=== PATIENT | male | born 1970 | race Caucasian/White ===

== ENCOUNTER 2016-11-01 18:38 | Inpatient (IN) | payer MEDICARE, OTHER ==
[~2016-11-01] VITALS: Ht 188 cm; Wt 86.1 kg
[~2016-11-01 18:38] MED LIST: CYCL-36 PO; DUONI NEB; OMEP20TA39 PO; OXYC15TA PO; PRED10PA PO; TRAZ300T2 PO; XANA2TAB2 PO
[2016-11-01 19:01] VITALS: BP 143/86; PULSE 84; RESP 16; TEMP 98.8; O2SAT 98
--- NOTE | 2016-11-01 21:51 | PD ---
HPI Chief Complaint: Chest Pain Time Seen by Provider: 21:33 Travel History International Travel<30 days: No Contact w/Intl Traveler<30days: No Traveled to known affect area: No History of Present Illness HPI Patient comes in complaining of burning sensation in his chest has been getting worse for the past 4 days. Patient has a chronic history of this and patient's mother reports he was on hospice until about a week ago when he was taken off taken along with all his medicines "cold turkey". Patient states the past 4 days he's been having increased burning sensation in his chest as well as in his fingers and toes. Patient denies anything making it worse. States breathing treatments helped a little bit. Denies any fevers, chest pain, nausea , vomiting, fevers, or abdominal pain. Patient also reports that he his O2 concentrator is not working currently secondary to being without electricity and has been using up his O2 tanks. PFSH Past Medical History Hx Anticoagulant Therapy: No Arthritis: No Asthma: No Autoimmune Disease: No Blood Disorders: No Anxiety: Yes Depression: Yes Heart Rhythm Problems: No Cancer: No Cardiac Catheterization: Yes Cardiomyopathy: Yes Cardiovascular Problems: Yes (LOOP RECORDER PLACED 05/06/15) High Cholesterol: Yes Chemotherapy: No Chest Pain: Yes (CHEST WALL PAIN, DENIES ANGINA) Congestive Heart Failure: No COPD: Yes (CHRONIC) Cerebrovascular Accident: No Diabetes: No Diminished Hearing: No Endocrine: No Gastrointestinal Disorders: Yes GERD: Yes Genitourinary: Yes Headaches: Yes Hiatal Hernia: No Hypertension: Yes Immune Disorder: No Implanted Vascular Access Dvce: Yes Musculoskeletal: Yes (CHRONIC CHEST/LUNG & LEG PAIN) Neurologic: Yes Psychiatric: Yes Reproductive: No Respiratory: Yes (copd end stage) Immunizations Current: Yes Migraines: No Myocardial Infarction: No Pneumonia: Yes Radiation Therapy: No Seizures: No Sleep Apnea: No Thyroid Disease: No Ulcer: No PNEUMOCCOCAL Vaccine (Year): 2009 Past Surgical History Abdominal Surgery: No AICD: No Arteriovenous Shunt: No Body Medical Devices: LOOP RECORDER Cardiac Surgery: Yes (LOOP RECORDER- placed today 05/05/14) Ear Surgery: No Endocrine Surgery: No Eye Surgery: No Genitourinary Surgery: No Insulin Pump: No Joint Replacement: No Neurologic Surgery: No Oral Surgery: Yes (TEETH REMOVED) Pacemaker: No Thoracic Surgery: Yes (RIGHT LUNG LOBECTOMY) Tonsillectomy: Yes Other Surgery: Yes (SINUS SURGERY) Family History Family Hypercholesterolemia: Yes Social History Alcohol Use: Yes (Weekends) Tobacco Use: Yes (QUIT 05/05/15) Substance Use: Yes (Marijuana occ.) Allergies-Medications (Allergen,Severity, Reaction): Coded Allergies: codeine (Unverified Allergy, Severe, Anaphylaxis, 11/01/16) diatrizoate meglumine (Unverified Allergy, Severe, Tongue Swelling, [place], 11/01/16) fentanyl (Unverified Allergy, Severe, Hives; nausea/vomiting, 11/02/16) Per patient report gadobenic acid (Unverified Allergy, Severe, Tongue Swelling, [place], 01/07) gadodiamide (Unverified Allergy, Severe, Tongue Swelling, [place], ) gadoteridol (Unverified Allergy, Severe, Tongue Swelling, [place], ) iodixanol (Unverified Allergy, Severe, Tongue Swelling, [place], 11/01/16) iohexol (Unverified Allergy, Severe, Tongue Swelling, [place], 11/01/16) morphine (Unverified Allergy, Severe, itching and redness at IV site., 01/07) Pt states not allergic azithromycin (Unverified Allergy, Intermediate, Itching, 11/01/16) REDNESS AND ITCHING IN SAME ARM OF IV INFUSION. PT REPORTS TAKING ORAL ZITHROMAX WITHOUT ANY PROBLEMS. methadone (Unverified Allergy, Intermediate, Hives, 11/02/16) Per patient report Reported Meds & Prescriptions Reported Meds & Active Scripts Active Review of Systems Except as stated in HPI: all other systems reviewed are Neg Physical Exam Narrative GENERAL: Well-developed, well nourished, in no acute distress, and non-ill appearing. SKIN: Focused skin assessment warm and dry. HEAD: Atraumatic. Normocephalic. EYES: Pupils equal and round. EOMI. No scleral icterus. No injection or drainage. ENT: No nasal bleeding or discharge. Mucous membranes pink and moist. NECK: Trachea midline. No JVD. Supple. No nuclear rigidity. CARDIOVASCULAR: Regular rate and rhythm. No murmur appreciated. RESPIRATORY: No accessory muscle use. No respiratory distress. Decreased breath sounds throughout. MUSCULOSKELETAL: No obvious deformities. No clubbing. No cyanosis. No edema. Full range of motion. NEUROLOGICAL: Awake and alert. No obvious cranial nerve deficits. Motor grossly within normal limits. Normal speech. PSYCHIATRIC: Appropriate mood and affect; insight and judgment normal. Data Data Last Documented VS Vital Signs Date Time Temp Pulse Resp B/P (MAP) Pulse Ox O2 Delivery O2 Flow Rate FiO2 11/01/16 23:45 76 18 125/74 (91) 98 Room Air 139/88 (105) 11/01/16 23:43 10.00 11/01/16 19:01 98.8 Orders Orders Electrocardiogram (11/01/16 21:59) Basic Metabolic Panel (Bmp) (11/01/16 21:59) Ckmb (Isoenzyme) Profile (11/01/16 21:59) Complete Blood Count With Diff (11/01/16 21:59) Magnesium (Mg) (11/01/16 21:59) Prothrombin Time / Inr (Pt) (11/01/16 21:59) Act Partial Throm Time (Ptt) (11/01/16 21:59) Troponin I (11/01/16 21:59) Chest, Single Ap (11/01/16 21:59) Ecg Monitoring (11/01/16 21:59) Bilateral Bp Monitoring (11/01/16 21:59) Iv Access Insert/Monitor (11/01/16 21:59) Oximetry (11/01/16 21:59) Oxygen Administration (11/01/16 21:59) Albuterol-Ipratropium Neb (Duoneb Neb) (11/01/16 22:15) Aspirin Chew (Aspirin Chew) (11/01/16 23:15) Hydromorphone Pf Inj (Dilaudid Pf Inj) (11/01/16 23:15) Methylprednisolone So Succ Inj (Solumedr (11/01/16 23:15) Place In Observation (11/01/16 ) Vital Signs (Adult) Q4H (11/01/16 23:42) Activity Oob With Assistance (11/01/16 23:42) Delivery Consultant / Telemetry .CONTINUOUS (11/01/16 23:42) Diet Heart Healthy (11/02/16 Breakfast) Sodium Chloride 0.9% Flush (Ns Flush) (11/01/16 23:45) Sodium Chloride 0.9% Flush (Ns Flush) (11/02/16 09:00) Basic Metabolic Panel (Bmp) (11/02/16 06:00) Complete Blood Count With Diff (11/02/16 06:00) Creatine Kinase (Cpk) (11/02/16 04:30) Creatine Kinase (Cpk) (11/02/16 10:30) Troponin I (11/02/16 04:30) Troponin I (11/02/16 10:30) Electrocardiogram (11/02/16 04:30) Electrocardiogram (11/02/16 10:30) Resp Oxygen Balaji C Titrat 1-4 L (11/01/16 ) Pt Request For Service (11/01/16 23:42) Case Management Consult (11/01/16 23:42) Naloxone Inj (Narcan Inj) (11/01/16 23:45) Albuterol-Ipratropium Neb (Duoneb Neb) (11/02/16 04:00) Albuterol-Ipratropium Neb (Duoneb Neb) (11/02/16 00:00) Ondansetron Inj (Zofran Inj) (11/02/16 00:00) Admit Order (Ed Use Only) (11/01/16 23:47) Labs Laboratory Tests Test 11/01/16 22:30 White Blood Count 11.0 TH/MM3 Red Blood Count 4.59 MIL/MM3 Hemoglobin 14.0 GM/DL Hematocrit 40.7 % Mean Corpuscular Volume 88.6 FL Mean Corpuscular Hemoglobin 30.6 PG Mean Corpuscular Hemoglobin Concent 34.5 % Red Cell Distribution Width 13.0 % Platelet Count 356 TH/MM3 Mean Platelet Volume 7.2 FL Neutrophils (%) (Auto) 62.8 % Lymphocytes (%) (Auto) 26.9 % Monocytes (%) (Auto) 6.1 % Eosinophils (%) (Auto) 3.4 % Basophils (%) (Auto) 0.8 % Neutrophils # (Auto) 6.8 TH/MM3 Lymphocytes # (Auto) 3.0 TH/MM3 Monocytes # (Auto) 0.7 TH/MM3 Eosinophils # (Auto) 0.4 TH/MM3 Basophils # (Auto) 0.1 TH/MM3 CBC Comment DIFF FINAL Differential Comment Prothrombin Time 10.4 SEC Prothromb Time International Ratio 0.9 RATIO Activated Partial Thromboplast Time 31.0 SEC Blood Urea Nitrogen 21 MG/DL Creatinine 0.87 MG/DL Random Glucose 124 MG/DL Calcium Level 8.2 MG/DL Magnesium Level 2.1 MG/DL Sodium Level 140 MEQ/L Potassium Level 3.7 MEQ/L Chloride Level 106 MEQ/L Carbon Dioxide Level 28.4 MEQ/L Anion Gap 6 MEQ/L Estimat Glomerular Filtration Rate 94 ML/MIN Total Creatine Kinase 44 U/L Troponin I LESS THAN 0.02 NG/ML MDM Medical Decision Making Medical Screen Exam Complete: Yes Emergency Medical Condition: Yes Interpretation(s) Chest x-ray with the radiologist shows: No evidence of acute cardiopulmonary disease. Mild chronic interstitial changes. Differential Diagnosis COPD exacerbation, pneumonia, acute coronary syndrome, pneumothorax, chronic pain, other Narrative Course Patient was seen and examined. Initial of her neurologic status. Patient was signed out to Dr. Montoya at the end of my shift. Please see his documentation for final diagnosis and disposition. Scripts Alprazolam (Xanax) 1 Mg Tab 1 MG PO Q6H Y for ANXIETY, #15 TAB 0 Refills Prov: Sudhakar Vazquez MD 11/03/16 Oxycodone (Oxycodone) 10 Mg Tab 10 MG PO Q6H Y for PAIN, #20 TAB 0 Refills Prov: Sudhakar Vazquez MD 11/03/16 Iain Meredith Nov 01, 2016 21:51
[2016-11-01] MEDS ORDERED: SODIUM CHLORIDE 0.9% FLUSH 10 ML FLUSH IVF PRN (22:00)
[2016-11-01 22:09] VITALS: BP 136/92; PULSE 69; RESP 20; O2SAT 100
[2016-11-01] MEDS ORDERED: RESP: ALBUTEROL 2.5 MG/IPRATROPIUM 0.5 MG NEB (SCH) INH ONE (22:15)
--- NOTE | 2016-11-01 22:15 | RADRPT ---
EXAM DATE/TIME: 11/01/2016 21:48 [facility] COMPARISON: US CAROTID ARTERIES, November 29, 2011, 14:27. CHEST SINGLE AP, May 21, 2015, 20:01. INDICATIONS : Shortness of breath, chest pain. MEDICAL HISTORY : Alpha one antitrypsin SURGICAL HISTORY : Loop recorder, Right lobectomy 9 yrs ENCOUNTER: Initial ACUITY: 4 - 6 days PAIN SCORE: 6/10 LOCATION: Bilateral chest FINDINGS: Mild interstitial opacities are again seen in the bases. No infiltrate, effusion or pneumothorax. Hea rt size stable, within normal limits. Cardiac Loop recorder again noted. CONCLUSION: No evidence of acute cardiopulmonary disease. Mild chronic interstitial changes. Vahid Elizabeth MD on November 01, 2016 at 22:12 Board Certified Radiologist. This report was verified electronically.
[2016-11-01 22:37] LABS: AUTOMATED NEUTROPHIL # 6.8 TH/MM3 (1.8-7.7); BASOPHIL % 0.8 % (0.0-2.0); EOSINOPHIL % 3.4 % (0.0-4.0); HEMATOCRIT 40.7 % (39.0-51.0); HEMO FLAGS DIFF FINAL; LYMPH % 26.9 % (9.0-44.0); MEAN CELL VOLUME 88.6 FL (80.0-100.0); MEAN CORPUSCULAR HEMOGLOBIN 30.6 PG (27.0-34.0); MEAN CORPUSCULAR HGB CONC 34.5 % (32.0-36.0); MONO % 6.1 % (0.0-8.0); NEUT % 62.8 % (16.0-70.0); PLATELET COUNT 356 TH/MM3 (150-450); RED BLOOD COUNT 4.59 MIL/MM3 (4.50-5.90)
[2016-11-01 22:38] LABS: BASOPHIL # 0.1 TH/MM3 (0-0.2); EOSINOPHIL # 0.4 TH/MM3 (0-0.4)
[2016-11-01 22:45] LABS: CHLORIDE 106 MEQ/L (98-107); POTASSIUM 3.7 MEQ/L (3.5-5.1); SODIUM (NA) 140 MEQ/L (136-145)
[2016-11-01 22:48] LABS: ANION GAP 6 MEQ/L (5-15); BICARBONATE 28.4 MEQ/L (21.0-32.0); BLOOD UREA NITROGEN 21 MG/DL (7-18); MAGNESIUM 2.1 MG/DL (1.5-2.5)
[2016-11-01 22:49] LABS: INTERNATIONAL NORMALIZED RATIO 0.9 RATIO; PROTHROMBIN TIME - PATIENT 10.4 SEC (9.8-11.6)
[2016-11-01 22:52] LABS: GLOMERULAR FILTRATION RATE 94 ML/MIN (>89)
[2016-11-01 22:56] LABS: CREATINE KINASE 44 U/L (39-308)
[2016-11-01] MEDS ORDERED: HYDROmorphone HCL PF 1 MG/ML VIAL IV PUSH ONE (23:15)
[2016-11-01] MEDS ORDERED: ASPIRIN 81 MG CHEW TAB PO ONE (23:15)
[2016-11-01] MEDS ORDERED: methylPREDNISolone SOD SUCC 125 MG/2 ML VIAL IV PUSH ONE (23:15)
[2016-11-01 23:43] VITALS: O2SAT 100
[2016-11-01 23:45] VITALS: BP_SYST 125; BP_SYST 139; BP_DIAS 74; BP_DIAS 88; PULSE 76; RESP 18; O2SAT 98
[2016-11-01] MEDS ORDERED: NALOXONE HCL 0.4 MG/ML AMP IV PRN (23:45)
[2016-11-01] MEDS ORDERED: SODIUM CHLORIDE 0.9% FLUSH 10 ML FLUSH IV FLUSH PRN (23:45)
--- NOTE | 2016-11-01 23:53 | PD ---
Data Data Last Documented VS Vital Signs Date Time Temp Pulse Resp B/P (MAP) Pulse Ox O2 Delivery O2 Flow Rate FiO2 11/01/16 23:45 76 18 125/74 (91) 98 Room Air 139/88 (105) 11/01/16 23:43 10.00 11/01/16 19:01 98.8 Orders Orders Electrocardiogram (11/01/16 21:59) Basic Metabolic Panel (Bmp) (11/01/16 21:59) Ckmb (Isoenzyme) Profile (11/01/16 21:59) Complete Blood Count With Diff (11/01/16 21:59) Magnesium (Mg) (11/01/16 21:59) Prothrombin Time / Inr (Pt) (11/01/16 21:59) Act Partial Throm Time (Ptt) (11/01/16 21:59) Troponin I (11/01/16 21:59) Chest, Single Ap (11/01/16 21:59) Ecg Monitoring (11/01/16 21:59) Bilateral Bp Monitoring (11/01/16 21:59) Iv Access Insert/Monitor (11/01/16 21:59) Oximetry (11/01/16 21:59) Oxygen Administration (11/01/16 21:59) Albuterol-Ipratropium Neb (Duoneb Neb) (11/01/16 22:15) Aspirin Chew (Aspirin Chew) (11/01/16 23:15) Hydromorphone Pf Inj (Dilaudid Pf Inj) (11/01/16 23:15) Methylprednisolone So Succ Inj (Solumedr (11/01/16 23:15) Place In Observation (11/01/16 ) Vital Signs (Adult) Q4H (11/01/16 23:42) Activity Oob With Assistance (11/01/16 23:42) Archeologist Classical / Telemetry .CONTINUOUS (11/01/16 23:42) Diet Heart Healthy (11/02/16 Breakfast) Sodium Chloride 0.9% Flush (Ns Flush) (11/01/16 23:45) Sodium Chloride 0.9% Flush (Ns Flush) (11/02/16 09:00) Basic Metabolic Panel (Bmp) (11/02/16 06:00) Complete Blood Count With Diff (11/02/16 06:00) Creatine Kinase (Cpk) (11/02/16 04:30) Creatine Kinase (Cpk) (11/02/16 10:30) Troponin I (11/02/16 04:30) Troponin I (11/02/16 10:30) Electrocardiogram (11/02/16 04:30) Electrocardiogram (11/02/16 10:30) Resp Oxygen Balaji C Titrat 1-4 L (11/01/16 ) Pt Request For Service (11/01/16 23:42) Case Management Consult (11/01/16 23:42) Naloxone Inj (Narcan Inj) (11/01/16 23:45) Albuterol-Ipratropium Neb (Duoneb Neb) (11/02/16 04:00) Albuterol-Ipratropium Neb (Duoneb Neb) (11/02/16 00:00) Ondansetron Inj (Zofran Inj) (11/02/16 00:00) Admit Order (Ed Use Only) (11/01/16 23:47) Labs Laboratory Tests Test 11/01/16 22:30 White Blood Count 11.0 TH/MM3 Red Blood Count 4.59 MIL/MM3 Hemoglobin 14.0 GM/DL Hematocrit 40.7 % Mean Corpuscular Volume 88.6 FL Mean Corpuscular Hemoglobin 30.6 PG Mean Corpuscular Hemoglobin Concent 34.5 % Red Cell Distribution Width 13.0 % Platelet Count 356 TH/MM3 Mean Platelet Volume 7.2 FL Neutrophils (%) (Auto) 62.8 % Lymphocytes (%) (Auto) 26.9 % Monocytes (%) (Auto) 6.1 % Eosinophils (%) (Auto) 3.4 % Basophils (%) (Auto) 0.8 % Neutrophils # (Auto) 6.8 TH/MM3 Lymphocytes # (Auto) 3.0 TH/MM3 Monocytes # (Auto) 0.7 TH/MM3 Eosinophils # (Auto) 0.4 TH/MM3 Basophils # (Auto) 0.1 TH/MM3 CBC Comment DIFF FINAL Differential Comment Prothrombin Time 10.4 SEC Prothromb Time International Ratio 0.9 RATIO Activated Partial Thromboplast Time 31.0 SEC Blood Urea Nitrogen 21 MG/DL Creatinine 0.87 MG/DL Random Glucose 124 MG/DL Calcium Level 8.2 MG/DL Magnesium Level 2.1 MG/DL Sodium Level 140 MEQ/L Potassium Level 3.7 MEQ/L Chloride Level 106 MEQ/L Carbon Dioxide Level 28.4 MEQ/L Anion Gap 6 MEQ/L Estimat Glomerular Filtration Rate 94 ML/MIN Total Creatine Kinase 44 U/L Troponin I LESS THAN 0.02 NG/ML MDM Supervised Visit with LB: Yes Narrative Course I, Dr. Montoya, have reviewed the advance practice practitioner's documentation and am in agreement, met with the patient face to face, made the diagnosis, and the medical decision making was done by me. See his note for further details. Briefly this is a 46-year-old male with history of alpha-1 antitrypsin deficiency, right lung lobectomy, oxygen dependent on 10 L nasal cannula at home , here for evaluation of chest pain, shortness of breath, and burning sensation in bilateral hands and feet. Symptoms reportedly had been going on for last 2 days. While in triage, the patient was on a portable oxygen tank from home that ran out of oxygen. Patient describes a substernal chest pain that he describes as ripping, worse with inspiration. On physical exam he is comfortable. There are bilateral inspiratory and expiratory wheezes. No upper or lower extremity edema. Hands an feet appear unremarkable. Initial vital signs show heart rate 84, blood pressure 143/86, pulse ox 98% on 10 L facemask. EKG: Sinus, rate 65, normal axis, normal intervals, no acute ischemic abnormality. CBC is unremarkable. BMP is unremarkable. Cardiac enzymes are negative. Chest x-ray: No evidence of acute cardiopulmonary disease. Mild chronic interstitial changes. Patient was given a DuoNeb treatment and IV Solu-Medrol. States that he did his own albuterol treatments at home prior to arrival without improvement. On reassessment his wheezing has significantly improved. There are no retractions or signs of respiratory distress on exam. He is still complaining of chest pain that is substernal. He was given a full dose of aspirin. He will be given pain medication. The patient reports that he was previously on hospice care, however was taken off of hospice one week ago. He reports significant family history of heart disease, however denies any known personal history of heart disease. He will be admitted for further treatment and evaluation of COPD /pulmonary fibrosis with shortness of breath as well as chest pain. Case discussed with hospitalist Dr. Hicks who will admit the patient to her service. Diagnosis Primary Impression: Chest pain Qualified Codes: R07.9 - Chest pain, unspecified Additional Impression: COPD exacerbation Neno Montoya MD Nov 01, 2016 23:53
[2016-11-02] VITALS (14 sets, daily range): BP systolic 111–139; BP diastolic 68–89; PULSE 73–102; RESP 16–20; TEMP 97.4–98.7; O2SAT 94–100
[2016-11-02] MEDS ORDERED: RESP: ALBUTEROL 2.5 MG/IPRATROPIUM 0.5 MG NEB (PRN) NEB
[2016-11-02] MEDS ORDERED: ONDANSETRON HCL 4 MG/2 ML VIAL IV PUSH ONE
[2016-11-02] MEDS: RESP: ALBUTEROL 2.5 MG/IPRATROPIUM 0.5 MG NEB (SCH) NEB ×4 (04:07→20:06)
[2016-11-02 05:37] LABS: CREATINE KINASE 38 U/L (39-308)
[2016-11-02 05:57] LABS: AUTOMATED NEUTROPHIL # 14.1 TH/MM3 (1.8-7.7); BASOPHIL # 0.4 TH/MM3 (0-0.2); BASOPHIL % 2.3 % (0.0-2.0); EOSINOPHIL % 0.2 % (0.0-4.0); HEMATOCRIT 40.8 % (39.0-51.0); LYMPHOCYTE # 0.8 TH/MM3 (1.0-4.8); MEAN CELL VOLUME 87.2 FL (80.0-100.0); MEAN CORPUSCULAR HEMOGLOBIN 29.5 PG (27.0-34.0); MEAN CORPUSCULAR HGB CONC 33.8 % (32.0-36.0); MONO % 0.3 % (0.0-8.0); NEUT % 92.2 % (16.0-70.0); PLATELET COUNT 332 TH/MM3 (150-450); RED BLOOD COUNT 4.68 MIL/MM3 (4.50-5.90); RED CELL DISTRIBUTION WIDTH 13.1 % (11.6-17.2); WHITE BLOOD COUNT 15.3 TH/MM3 (4.0-11.0)
[2016-11-02 05:58] LABS: HEMO FLAGS DIFF FINAL
[2016-11-02 06:11] LABS: POTASSIUM 3.7 MEQ/L (3.5-5.1)
[2016-11-02 06:14] LABS: BICARBONATE 26.6 MEQ/L (21.0-32.0)
[2016-11-02] MEDS: SODIUM CHLORIDE 0.9% FLUSH 10 ML FLUSH IV FLUSH SCH ×2 (10:07→20:06)
[2016-11-02] MEDS: methylPREDNISolone SOD SUCC 40 MG/1 ML VIAL IV PUSH SCH ×2 (11:28→18:45)
[2016-11-02 11:30] LABS: CREATINE KINASE 42 U/L (39-308)
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
--- NOTE | 2016-11-02 14:03 | EKG ---
Date Performed: 11/02/2016 Time Performed: 04:42:40 PTAGE: 46 years EKG: Sinus rhythm NORMAL ECG Compared to prior tracing no significant change PREVIOUS TRACING : 11/01/2016 22.35 DOCTOR: Sophie Hand Interpretating Date/Time 11/02/2016 13:57:35
--- NOTE | 2016-11-02 14:03 | EKG ---
Date Performed: 11/01/2016 Time Performed: 22:35:48 PTAGE: 46 years EKG: Sinus rhythm NORMAL ECG Compared to prior tracing no significant change PREVIOUS TRACING : 05/21/2015 19.44 DOCTOR: Sophie Hand Interpretating Date/Time 11/02/2016 13:57:27
[2016-11-02] MEDS: ENOXAPARIN SODIUM 40 MG/0.4 ML SYRINGE SQ SCH (14:27)
--- NOTE | 2016-11-02 16:59 | PD.CONS ---
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 decision-making noted today, and, unless otherwise indicated, the interactions with patient, family, and staff as well as the review of records all occurred today. I also attest that the listed assessment and stated plan reflect my best clinical judgment today based on the combination of historical information, prior notes, and today's exam/ interactions. When time spent is documented, it refers only to time spent today by the signer, or if indicated, combined time spent today by collaborating physician/nurse practitioner. . Kamari Gillette MD Nov 02, 2016 16:59
[2016-11-02] MEDS: ONDANSETRON ODT 4 MG TAB PO PRN (20:45)
[2016-11-03] VITALS (9 sets, daily range): BP systolic 111–130; BP diastolic 66–82; PULSE 78–96; RESP 16–20; TEMP 97.5–98.1; O2SAT 95–100
[2016-11-03] MEDS: methylPREDNISolone SOD SUCC 40 MG/1 ML VIAL IV PUSH SCH ×4 (01:08→18:00)
[2016-11-03] MEDS: LORazepam 2 MG TAB PO PRN ×2 (01:20→14:04)
[2016-11-03] MEDS: ONDANSETRON ODT 4 MG TAB PO PRN ×4 (01:20→14:04)
[2016-11-03] MEDS: RESP: ALBUTEROL 2.5 MG/IPRATROPIUM 0.5 MG NEB (SCH) NEB ×3 (03:33→16:00)
[2016-11-03] MEDS: SODIUM CHLORIDE 0.9% FLUSH 10 ML FLUSH IV FLUSH SCH (09:31)
[2016-11-03] MEDS: ENOXAPARIN SODIUM 40 MG/0.4 ML SYRINGE SQ SCH (14:08)
[2016-11-03 14:35] LABS: BLOOD GAS BASE EXCESS -0.4 mmol/L (-2-2); BLOOD GAS HCO3 23 mmol/L (22-26); BLOOD GAS METHEMOGLOBIN 0.6 % (0-2); BLOOD GAS O2 HGB SATURATION 94 % (90-100); BLOOD GAS OXYGEN CONTENT 18.4 Vol % (12.0-20.0); BLOOD GAS PCO2 32 mmHg (38-42); BLOOD GAS PO2 72 mmHG (61-120); BLOOD GAS TOTAL HGB 13.8 G/DL (12.0-16.0); CRITICAL VALUE NO; DRAW SITE LT RADIAL; FIO2 21 %; NUMBER OF ARTERIAL PUNCTURES 1; OXYGEN DEVICE ROOM AIR; STAT YES; TEMP CORR TO 98.6
--- NOTE | 2016-11-03 17:05 | MB ---
cc: JONO DE LA CRUZ M.D. DATE OF CONSULTATION 11/03/2016 REASON FOR CONSULTATION COPD alpha-one antitrypsin insufficiency. HISTORY OF PRESENT ILLNESS The patient is a 46-year-old male with a history of COPD and alpha-one antitrypsin deficiency and chronic respiratory failure on oxygen therapy at home. The patient comes in complaining of chest pain and pains all over. He has been with hospice at home receiving pain medication. However, because of lack of insurance coverage, he no longer gets the pain medicine. The patient has no shortness of breath at present and appears in no distress. No fever, chills, cough, or expectoration. PAST MEDICAL HISTORY His past medical history is that of: 1. COPD 2. Chronic respiratory failure 3. Alpha one Antitrypsin deficiency 4. Hypertension 5. Congestive heart failure 6. Narcotic dependence 7. Had a previous right lung resection apparently for benign Disease 8. Previous tonsillectomy and adenoidectomy as a child. 9. Sinus surgery 10. Loop recorder implantation ALLERGIES CODEINE, DIETRIZOATE, MEGLUMINE, GADOBENIC ACID, IODIXANOL, IOHEXOL AND MORPHINE AND AZITHROMYCIN. Kindly review the records, all these are listed. FAMILY HISTORY Positive for diabetes, heart disease, otherwise unremarkable. SOCIAL HISTORY The patient used to smoke, stopped 16 years ago. Narcotic dependence as above. Does not drink any alcohol. SYSTEMS REVIEW A 12-point review of systems as per HPI and past history otherwise negative. PHYSICAL EXAM On exam, the patient is alert, pulse 88, respirations 18, blood pressure 120/78, oxygen saturation 100% on two liters oxygen per records. HEENT: Exam unremarkable. Eyes without icterus. NECK: Without adenopathy or thyroid enlargement. Central trachea. CHEST: No dullness to percussion, clear to auscultation. CARDIAC: PMI distant. S1-S2 audible. No murmur or rub. ABDOMEN: Lax, audible bowel sounds. EXTREMITIES: No clubbing, cyanosis or edema. SKIN: Normal. No lymphadenopathy. LABORATORY DATA White count 15,000, hemoglobin 13, hematocrit 40, platelets 232,000. Sodium 139, potassium 3.7, BUN 19, creatinine 1.1. IMPRESSION 1. COPD and alpha one antitrypsin deficiency by history as above. 2. Chronic respiratory failure by history as above. 3. Generalized aches and pains. PLAN We will check the patient's pulmonary function, as well as arterial blood gas. Continue his bronchodilator oxygen therapy. Review his previous records. The patient had seen me once in the office in 2015 and after initial evaluation never returned for followup. I do thank you for asking me to partake in Mr. Snider's care. Jono De La Cruz MD WWW/SHA /12:47 PM /4:46 PM
--- NOTE | 2016-11-03 19:31 | HHI.PR ---
Subjective Remarks Patient requested to be discharged. He has been refusing Solumedrol. He took off his oxygen for the whole 30 minutes of our conversation and was not in any respiratory distress. Blood gas on room air unremarkable. He requested prescriptions for Xanax and pain medications to allow him time to get into his pain management Dr. Mark and his psychiatrist. He states he will follow up with Dr. Goncalves for Pulmonology. He refused consultation to psychiatry here. Objective Vitals Vital Signs Date Time Temp Pulse Resp B/P (MAP) Pulse Ox O2 Delivery O2 Flow Rate FiO2 11/03/16 19:17 97.8 90 20 120/78 (92) 96 11/03/16 15:54 97.6 95 18 127/72 (90) 100 11/03/16 12:50 97.6 90 16 124/67 (86) 96 11/03/16 09:25 96 11/03/16 09:08 96 Aerosol Mask 10.00 50 11/03/16 08:18 97.5 85 18 111/66 (81) 100 11/03/16 04:16 81 11/03/16 03:54 98.1 87 18 130/82 (98) 95 11/03/16 00:04 78 11/02/16 23:48 97.7 88 20 139/84 (102) 94 11/02/16 20:39 100 11/02/16 20:06 98 Aerosol Mask 70 11/02/16 19:40 98.0 89 18 111/72 (85) 98 I/O 11/02/16 11/02/16 11/02/16 11/03/16 11/03/16 11/03/16 07:00 15:00 23:00 07:00 15:00 23:00 Output Total 800 ml 100 ml 200 ml Balance -800 ml -100 ml -200 ml Output Urine Total 800 ml 100 ml 200 ml # Voids 2 1 Result Diagram: 11/02/1640 11/02/16 0540 Objective Remarks GENERAL: No acute distress. CARDIOVASCULAR: Regular rate and rhythm. RESPIRATORY: No accessory muscle use. Clear to auscultation. Breath sounds equal bilaterally. GASTROINTESTINAL: Abdomen soft, non-tender, nondistended. Hepatic and splenic margins not palpable. MUSCULOSKELETAL: Extremities without clubbing, cyanosis, or edema. No obvious deformities. NEUROLOGICAL: Awake and alert. Normal speech. PSYCHIATRIC: Irritable A/P Problem List: (1) Chest pain ICD Code: R07.9 - Chest pain, unspecified Status: Acute (2) Chronic pain ICD Code: G89.29 - Other chronic pain Status: Acute Assessment and Plan 46 Y/O male with reported history of chronic respiratory failure secondary to reported diagnosis of alpha 1 antitrypsin deficiency, chronic obstructive pulmonary disease. Patient reportedly has been on and off Hospice for the past 6 years. Per patient, he was previously evaluated at [place] and nothing else could be offered. Patient presented with complaint of worsening of his chest pain. He was taken off Hospice again and therefore his pain medications were discontinued. Pulmonology and palliative care were consulted during this Hospitalization. In summary the patient's oxygen levels remain stable even on room air even with a history of lobectomy. Akhil air ABG was unremarkable. It was apparent the patient has narcotic seeking behaviors. He has no objective evidence that he requires as much pain medications he is requesting. The patient also has significant anxiety which seems to bring on a sense of respiratory distress. He refused consultation with psychiatry here. Ultimately I advised the patient to follow up with his own Scrub Wheel [employer] and psychiatrist. He will return to his pain management physician. Discharge home in stable condition FOllow up with : PCP, psychiatry, Pulmonology and pain management. Diet: Regular Activity: regular Meds: Per med rec. Problem Qualifiers (1) Chest pain: Qualified Codes: R07.9 - Chest pain, unspecified Sudhakar Vazquez MD Nov 03, 2016 19:31
[2016-11-03] MEDS ORDERED: OXYC-395 PO (19:53)
[2016-11-03] MEDS ORDERED: XANA1TAB2 PO (19:53)
--- NOTE | 2016-11-03 22:00 | EKG ---
Date Performed: 11/02/2016 Time Performed: 10:36:05 PTAGE: 46 years EKG: Sinus rhythm NORMAL ECG PREVIOUS TRACING : 11/02/2016 04.42 Compared to prior tracing no significant change DOCTOR: Thalia Ruiz Interpretating Date/Time 11/03/2016 21:58:53
== END 2016-11-03 20:24 | disposition home or self-care (01) | DRG 191 ==
LOC: PHED 18:38 → PHEDA 23:48 → NEPGCP 11-02 12:27 → OBSVTOIN 11-02 14:46
PROVIDERS: ADMIT Family Medicine; ATTEND Family Medicine
DX: J44.1 Chronic obstructive pulmonary disease with (acute) exacerbation (principal); J96.11 Chronic respiratory failure with hypoxia; I42.9 Cardiomyopathy, unspecified; E88.01 Alpha-1-antitrypsin deficiency; I11.0 Hypertensive heart disease with heart failure; I50.9 Heart failure, unspecified; F11.20 Opioid dependence, uncomplicated; Z99.81 Dependence on supplemental oxygen; G89.29 Other chronic pain; Z87.891 Personal history of nicotine dependence; F12.90 Cannabis use, unspecified, uncomplicated; T38.0X5A Adverse effect of glucocorticoids and synthetic analogues, initial encounter; D72.829 Elevated white blood cell count, unspecified; E78.5 Hyperlipidemia, unspecified; F41.8 Other specified anxiety disorders; J84.10 Pulmonary fibrosis, unspecified; K21.9 Gastro-esophageal reflux disease without esophagitis; K59.00 Constipation, unspecified; Z82.49 Family history of ischemic heart disease and other diseases of the circulatory system; Z90.2 Acquired absence of lung [part of]; R07.89 Other chest pain; M79.606 Pain in leg, unspecified; M25.549 Pain in joints of unspecified hand
CPT/HCPCS: 36600; 71010; 80048; 82550; 82805; 83735; 84484; 85025; 85610; 85730; 87641; 93005; 94640; 94664; 99285; G8987-GP; G8988-GP; J1170; J1650; J2405; J2920; J2930

== ENCOUNTER 2016-11-27 22:36 | Emergency (ER) | payer MEDICARE, OTHER ==
[~2016-11-27] VITALS: Ht 188 cm; Wt 62.0 kg
[~2016-11-27 22:36] MED LIST changes: -CYCL-36 PO; -DUONI NEB; -OMEP20TA39 PO; +OXYC-395 PO; -OXYC15TA PO; -PRED10PA PO; -TRAZ300T2 PO; +XANA1TAB2 PO; -XANA2TAB2 PO
[2016-11-27 22:40] VITALS: BP 129/79; PULSE 100; RESP 20; TEMP 98.1; O2SAT 96
--- NOTE | 2016-11-27 22:58 | PD ---
HPI Chief Complaint: Respiratory Symptoms Time Seen by Provider: 22:58 Travel History International Travel<30 days: No Contact w/Intl Traveler<30days: No Traveled to known affect area: No History of Present Illness HPI 46-year-old male with history of chronic pain, alpha 1 antitrypsin deficiency as per him and few other medical disorders. He has a number of consultants he follow up with as an outpatient. Came in saying he is having body right pain. He was crying and says he does not understand why he has these symptoms and nobody can fix him. He was apparently admitted one month ago. I went through his old medical record from the last admission which show no abnormal tests. Patient says that he requires 8 L of oxygen at home. However without oxygen in the emergency room he has been saturating more than 95%. He has been adamant that nobody can figure out what is wrong with him and seems quite upset about it. Vital signs were otherwise stable. [facility] Past Medical History Narrative Medical List of his past medical, surgical, social and family history is reviewed from the nursing note. Hx Anticoagulant Therapy: No Arthritis: No Asthma: No Autoimmune Disease: No Blood Disorders: No Anxiety: Yes Depression: Yes Heart Rhythm Problems: No Cancer: No Cardiac Catheterization: Yes Cardiomyopathy: Yes Cardiovascular Problems: Yes (LOOP RECORDER PLACED 05/06/15) High Cholesterol: Yes Chemotherapy: No Chest Pain: Yes (CHEST WALL PAIN, DENIES ANGINA) Congestive Heart Failure: No COPD: Yes (CHRONIC) Cerebrovascular Accident: No Diabetes: No Diminished Hearing: No Endocrine: No Gastrointestinal Disorders: Yes GERD: Yes Genitourinary: Yes (HX OF SELF-CATHETERIZATION) Headaches: Yes Hiatal Hernia: No Hypertension: Yes Immune Disorder: No Implanted Vascular Access Dvce: Yes Musculoskeletal: Yes (CHRONIC CHEST/LUNG & LEG PAIN) Neurologic: Yes Psychiatric: Yes Reproductive: No Respiratory: Yes (END STAGE COPD) Immunizations Current: Yes Migraines: No Myocardial Infarction: No Pneumonia: Yes Radiation Therapy: No Seizures: No Sleep Apnea: No Thyroid Disease: No Ulcer: No PNEUMOCCOCAL Vaccine (Year): 2009 Past Surgical History Abdominal Surgery: No AICD: No Arteriovenous Shunt: No Body Medical Devices: LOOP RECORDER Cardiac Surgery: Yes (LOOP RECORDER- placed today 05/05/14) Ear Surgery: No Endocrine Surgery: No Eye Surgery: No Genitourinary Surgery: No Insulin Pump: No Joint Replacement: No Neurologic Surgery: No Oral Surgery: Yes (TEETH REMOVED) Pacemaker: No Thoracic Surgery: Yes (RIGHT LUNG LOBECTOMY) Tonsillectomy: Yes Other Surgery: Yes (SINUS SURGERY) Family History Family Hypercholesterolemia: Yes Social History Alcohol Use: Yes (Weekends) Tobacco Use: Yes (QUIT 05/05/15) Substance Use: Yes (Marijuana occ.) Allergies-Medications (Allergen,Severity, Reaction): Coded Allergies: codeine (Verified Allergy, Severe, Anaphylaxis, 11/27/16) diatrizoate meglumine (Verified Allergy, Severe, Tongue Swelling, [place] , 11/27/16) fentanyl (Verified Allergy, Severe, Hives; nausea/vomiting, 11/27/16) Per patient report gadobenic acid (Verified Allergy, Severe, Tongue Swelling, [place], ) gadodiamide (Verified Allergy, Severe, Tongue Swelling, [place], 11/27/16) gadoteridol (Verified Allergy, Severe, Tongue Swelling, [place], 11/27/16) iodixanol (Verified Allergy, Severe, Tongue Swelling, [place], 11/27/16) iohexol (Verified Allergy, Severe, Tongue Swelling, [place], 11/27/16) morphine (Verified Allergy, Severe, itching and redness at IV site., ) Pt states not allergic azithromycin (Verified Allergy, Intermediate, Itching, 11/27/16) REDNESS AND ITCHING IN SAME ARM OF IV INFUSION. PT REPORTS TAKING ORAL ZITHROMAX WITHOUT ANY PROBLEMS. methadone (Verified Allergy, Intermediate, Hives, 11/27/16) Per patient report Comments List of his allergies reviewed from the nursing note. Reported Meds & Prescriptions Reported Meds & Active Scripts Active Xanax (Alprazolam) 1 Mg Tab 1 Mg PO Q6H PRN Oxycodone (Oxycodone HCl) 10 Mg Tab 10 Mg PO Q6H PRN Narrative Medication List of his home medications reviewed from the nursing note. Review of Systems Except as stated in HPI: all other systems reviewed are Neg General / Constitutional: Positive: Other (generalized pain) Physical Exam Narrative GENERAL: Awake, alert, anxious SKIN: Focused skin assessment warm/dry. HEAD: Atraumatic. Normocephalic. EYES: Pupils equal and round. No scleral icterus. No injection or drainage. ENT: No nasal bleeding or discharge. Mucous membranes pink and moist. NECK: Trachea midline. No JVD. CARDIOVASCULAR: Regular rate and rhythm. No murmur appreciated. RESPIRATORY: No accessory muscle use. Clear to auscultation. Breath sounds equal bilaterally. GASTROINTESTINAL: Abdomen soft, non-tender, nondistended. Hepatic and splenic margins not palpable. MUSCULOSKELETAL: No obvious deformities. No clubbing. No cyanosis. No edema. NEUROLOGICAL: Awake and alert. No obvious cranial nerve deficits. Motor grossly within normal limits. Normal speech. PSYCHIATRIC: Appropriate mood and affect; insight and judgment normal. Data Data Last Documented VS Vital Signs Date Time Temp Pulse Resp B/P (MAP) Pulse Ox O2 Delivery O2 Flow Rate FiO2 11/27/16 23:45 11/27/16 23:38 89 18 95 Room Air 11/27/16 22:58 8.00 11/27/16 22:40 98.1 Orders Orders Lorazepam (Ativan) (11/27/16 23:30) [facility] Medical Decision Making Medical Screen Exam Complete: Yes Emergency Medical Condition: Yes Medical Record Reviewed: Yes Differential Diagnosis Chronic pain, generalized anxiety disorder Narrative Course 11:45 PM I'm comfortable discharging the patient home. I gave him 1 mg of Ativan by mouth. He needs to follow up with his consultants for his respective issues. Patient is not happy with this plan. I explained to him that unfortunately I cannot do much about this at this point since he has been thoroughly worked up many times and so far it has been negative. Once again he continues to remain above 95% on room air. I'm not exactly sure the need for him to be on 8 L of oxygen at home. 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 Procedures EKG Prior to Arrival: No Diagnosis Primary Impression: Generalized anxiety disorder Additional Impression: Chronic pain Qualified Codes: G89.4 - Chronic pain syndrome Referrals: Primary Care Physician Additional Instructions: Follow-up with your primary care. Med/Other Pt SpecificInfo: No Change to Meds Disposition: 01 DISCHARGE HOME Condition: Stable Felicia Ivan MD Nov 27, 2016 22:58
[2016-11-27] MEDS ORDERED: LORazepam 1 MG TAB PO ONE (23:30)
[2016-11-27 23:38] VITALS: BP 113/84; PULSE 89; RESP 18; O2SAT 95
== END 2016-11-27 23:51 | disposition home or self-care (01) ==
LOC: PHED 22:36
DX: F41.1 Generalized anxiety disorder (principal); G89.4 Chronic pain syndrome; I42.9 Cardiomyopathy, unspecified; E78.00 Pure hypercholesterolemia, unspecified; J44.9 Chronic obstructive pulmonary disease, unspecified; I10 Essential (primary) hypertension; K21.9 Gastro-esophageal reflux disease without esophagitis; Z87.891 Personal history of nicotine dependence
CPT/HCPCS: 99283

== ENCOUNTER 2016-12-31 14:01 | Emergency (ER) | payer MEDICARE, OTHER ==
[2016-12-31 14:14] VITALS: BP 146/86; PULSE 88; RESP 22; TEMP 97.6; O2SAT 96
[2016-12-31] MEDS ORDERED: SODIUM CHLORIDE 0.9% FLUSH 10 ML FLUSH IVF PRN (14:15)
[2016-12-31 14:18] VITALS: O2SAT 96
[2016-12-31] MEDS ORDERED: FLUT1INH INH (14:26)
[2016-12-31] MEDS ORDERED: OMEP40CA2 PO (14:26)
[2016-12-31] MEDS ORDERED: IPRASOL INH (14:26)
[2016-12-31] MEDS ORDERED: DILA8TAB4 PO (14:26)
[2016-12-31] MEDS ORDERED: TRAZ100T10 PO (14:26)
[2016-12-31 14:28] LABS: AUTOMATED NEUTROPHIL # 9.7 TH/MM3 (1.8-7.7); BASOPHIL # 0.2 TH/MM3 (0-0.2); BASOPHIL % 1.7 % (0.0-2.0); EOSINOPHIL # 0.2 TH/MM3 (0-0.4); EOSINOPHIL % 1.3 % (0.0-4.0); LYMPH % 17.1 % (9.0-44.0); LYMPHOCYTE # 2.2 TH/MM3 (1.0-4.8); MEAN CELL VOLUME 89.1 FL (80.0-100.0); MEAN CORPUSCULAR HEMOGLOBIN 29.4 PG (27.0-34.0); MONO % 3.7 % (0.0-8.0); NEUT % 76.2 % (16.0-70.0); PLATELET COUNT 390 TH/MM3 (150-450); RED BLOOD COUNT 5.17 MIL/MM3 (4.50-5.90); RED CELL DISTRIBUTION WIDTH 13.4 % (11.6-17.2); WHITE BLOOD COUNT 12.8 TH/MM3 (4.0-11.0)
[2016-12-31 14:34] LABS: CHLORIDE 104 MEQ/L (98-107); POTASSIUM 3.4 MEQ/L (3.5-5.1); SODIUM (NA) 140 MEQ/L (136-145)
[2016-12-31 14:35] VITALS: BP 117/74; PULSE 79; RESP 18; O2SAT 100
[2016-12-31 14:37] LABS: ANION GAP 7 MEQ/L (5-15); BICARBONATE 29.1 MEQ/L (21.0-32.0)
[2016-12-31 14:38] LABS: BLOOD UREA NITROGEN 11 MG/DL (7-18)
[2016-12-31 14:40] LABS: ALT (GPT) 33 U/L (12-78); HEMO FLAGS DIFF FINAL
[2016-12-31 14:41] LABS: AST (GOT) 13 U/L (15-37); GLOMERULAR FILTRATION RATE 94 ML/MIN (>89)
[2016-12-31 14:42] LABS: TOTAL BILIRUBIN ADULT 0.3 MG/DL (0.2-1.0)
[2016-12-31 14:43] LABS: ALKALINE PHOSPHATASE 68 U/L (45-117)
[2016-12-31 14:44] LABS: APTT (PATIENT) 30.3 SEC (24.3-30.1); INTERNATIONAL NORMALIZED RATIO 0.9 RATIO; PROTHROMBIN TIME - PATIENT 10.3 SEC (9.8-11.6)
[2016-12-31 14:51] LABS: CREATINE KINASE 46 U/L (39-308)
--- NOTE | 2016-12-31 14:58 | PD ---
HPI . Shortness of Breath, dyspnea, and inability to "catch his breath" since this morning. Chief Complaint: Respiratory Symptoms Time Seen by Provider: 14:13 Travel History International Travel<30 days: No Contact w/Intl Traveler<30days: No Traveled to known affect area: No History of Present Illness HPI Pt is a 46 yo male who presents to the ED acutely with shortness of breath and dyspnea since this morning. Pt has an extensive PMHx of end-stage COPD secondary to Alpha-1 Antitrypsin deficiency and R lung lobectomy. Pt describes feeling fine this morning and then suddenly not being able to catch his breath or stop wheezing. Pt has no modifying factors and has had no relief from OTC meds. Pt also mentions that he has chills and is always cold. Pt is followed by Pulmonology (Neris) and Cardiology (Nivia). Pt also stated that since his last exacerbation, his addiction counselor has switched him to new inhalers. Pt stated that he just left [facility] prior to ED. Pt also mentions that this episode is more severe that his previous episodes. PFSH Past Medical History Hx Anticoagulant Therapy: No Arthritis: No Asthma: No Autoimmune Disease: No Blood Disorders: No Anxiety: Yes Depression: Yes Heart Rhythm Problems: No Cancer: No Cardiac Catheterization: Yes Cardiomyopathy: Yes Cardiovascular Problems: Yes High Cholesterol: Yes Chemotherapy: No Chest Pain: Yes (CHEST WALL PAIN, DENIES ANGINA) Congestive Heart Failure: No COPD: Yes (CHRONIC) Cerebrovascular Accident: No Diabetes: No Diminished Hearing: No Endocrine: No Gastrointestinal Disorders: Yes GERD: Yes Genitourinary: Yes (HX OF SELF-CATHETERIZATION) Headaches: Yes Hiatal Hernia: No Hypertension: Yes Immune Disorder: No Implanted Vascular Access Dvce: Yes Musculoskeletal: Yes (CHRONIC CHEST/LUNG & LEG PAIN) Neurologic: Yes Psychiatric: Yes Reproductive: No Respiratory: Yes Immunizations Current: Yes Migraines: No Myocardial Infarction: No Pneumonia: Yes Radiation Therapy: No Seizures: No Sleep Apnea: No Thyroid Disease: No Ulcer: No Influenza Vaccination: Yes PNEUMOCCOCAL Vaccine (Year): 2009 Past Surgical History Abdominal Surgery: No AICD: No Arteriovenous Shunt: No Body Medical Devices: LOOP RECORDER Cardiac Surgery: Yes (LOOP RECORDER- placed 05/05/14) Ear Surgery: No Endocrine Surgery: No Eye Surgery: No Genitourinary Surgery: No Insulin Pump: No Joint Replacement: No Neurologic Surgery: No Oral Surgery: Yes (TEETH REMOVED) Pacemaker: No Thoracic Surgery: Yes (RIGHT LUNG LOBECTOMY) Tonsillectomy: Yes Other Surgery: Yes (SINUS SURGERY, RIGHT LOWER LOBECTOMY, LOOP RECORDER) Family History Family Hypercholesterolemia: Yes Social History Alcohol Use: Yes (Weekends) Tobacco Use: Yes (E-CIGERETTES) Substance Use: Yes (Marijuana occ.) Allergies-Medications (Allergen,Severity, Reaction): Coded Allergies: codeine (Verified Allergy, Severe, Anaphylaxis, 11/27/16) diatrizoate meglumine (Verified Allergy, Severe, Tongue Swelling, [place] , 11/27/16) fentanyl (Verified Allergy, Severe, Hives; nausea/vomiting, 11/27/16) Per patient report gadobenic acid (Verified Allergy, Severe, Tongue Swelling, [place], ) gadodiamide (Verified Allergy, Severe, Tongue Swelling, [place], 11/27/16) gadoteridol (Verified Allergy, Severe, Tongue Swelling, [place], 11/27/16) iodixanol (Verified Allergy, Severe, Tongue Swelling, [place], 11/27/16) iohexol (Verified Allergy, Severe, Tongue Swelling, [place], 11/27/16) morphine (Verified Allergy, Severe, itching and redness at IV site., ) Pt states not allergic azithromycin (Verified Allergy, Intermediate, Itching, 11/27/16) REDNESS AND ITCHING IN SAME ARM OF IV INFUSION. PT REPORTS TAKING ORAL ZITHROMAX WITHOUT ANY PROBLEMS. methadone (Verified Allergy, Intermediate, Hives, 11/27/16) Per patient report Reported Meds & Prescriptions Reported Meds & Active Scripts Active Levaquin (Levofloxacin) 500 Mg Tablet 500 Mg PO DAILY 7 Days Xanax (Alprazolam) 1 Mg Tab 1 Mg PO Q6H PRN Oxycodone (Oxycodone HCl) 10 Mg Tab 10 Mg PO Q6H PRN Reported Breo Ellipta Inh (Fluticasone/Vilanterol) 100-25 Mcg/Act Inh 1 Puff INH DAILY Use daily at the same time. Duoneb (Ipratropium-Albuterol Neb) 0.5-2.5 Mg/3 Ml Neb 1 Nebule INH Q4HR NEB Trazodone (Trazodone HCl) 100 Mg Tablet 100 Mg PO HS Omeprazole 40 Mg Cap 40 Mg PO DAILY Dilaudid (Hydromorphone HCl) 8 Mg Tab 8 Mg PO Q2HR PRN Review of Systems Except as stated in HPI: all other systems reviewed are Neg General / Constitutional: Positive: Chills Eyes: No: Diploplia, Blurred Vision, Photophobia, Drainage, Redness, Foreign Body Sensation, Pain, Tearing, Blind Spots, Visual changes, Blindness, Other HENT: Positive: Headaches (nonfocal), Congestion Respiratory: Positive: Cough, Shortness of Breath, Wheezing, Orthopnea Gastrointestinal: Positive: Loss of Appetite Genitourinary: No: Urgency, Frequency, Dysuria, Nocturia, Hematuria, Decreased Urinary Output, Oliguria, Hesitancy, Dribbling, Incontinence, Pelvic Pain, Flank Pain, Dyspareunia, Discharge, Dysmenorrhea, Menorrhagia, Metorrhagia, Vaginal Bleeding, Other Musculoskeletal: No: Myalgias, Arthralgias, Limited ROM, Weakness, Cramping, Edema, Pain, Atrophy, Other Skin: No Rash, No Itching, No Dryness, No Lumps, No Hives, No Change in Pigmentation, No Change in nails, No Alopecia, No Lesions, No Breast Lumps, No Breast Tenderness, No Breast Swelling, No Other Endocrine: Positive: Cold Intolerance (easily cold) Hematologic/Lymphatic: No: Easy Bruising, Lymph Node Enlargement, Other Physical Exam Narrative GENERAL: alert and oriented, moderate distress HEAD: atraumatic, normocephalic SKIN: warm, dry with good color. no tinting or decreased skin turgor. multiple tattoos noted. ENT: TM's clear and visible, no signs of erythema or redness, no swelling or lymphadenopathy. CV: RRR normal heart sounds noted. Loop recorder in place. RESPIRATORY: marked shortness of breath, nonproductive cough, marked end- expiratory wheezing, poor aeration and diminished breath sounds in all lung mtz. ABDOMEN: soft, nontender, nondistended, normoactive bowel sounds. NEURO: Nonfocal MUSCULOSKELETAL: Atraumatic PSYCH: appropriate mood and affect. Data Data Last Documented VS Vital Signs Date Time Temp Pulse Resp B/P (MAP) Pulse Ox O2 Delivery O2 Flow Rate FiO2 11/10/17 16:20 Nasal Cannula 4.00 12/31/16 16:20 88 20 102/69 (80) 97 12/31/16 14:14 97.6 Orders Orders Complete Blood Count With Diff (12/31/16 14:13) Comprehensive Metabolic Panel (12/31/16 14:13) B-Type Natriuretic Peptide (12/31/16 14:13) Act Partial Throm Time (Ptt) (12/31/16 14:13) Prothrombin Time / Inr (Pt) (12/31/16 14:13) Ckmb (Isoenzyme) Profile (12/31/16 14:13) Troponin I (12/31/16 14:13) Iv Access Insert/Monitor (12/31/16 14:13) Electrocardiogram (12/31/16 14:13) Ecg Monitoring (12/31/16 14:13) Oximetry (12/31/16 14:13) Oxygen Administration (12/31/16 14:13) Chest, Pa & Lat (12/31/16 14:13) Sodium Chloride 0.9% Flush (Ns Flush) (12/31/16 14:15) Albuterol-Ipratropium Neb (Duoneb Neb) (12/31/16 15:30) Methylprednisolone So Succ Inj (Solumedr (12/31/16 15:30) Hydromorphone (Dilaudid) (12/31/16 16:45) Labs Laboratory Tests Test 12/31/16 14:15 White Blood Count 12.8 TH/MM3 Red Blood Count 5.17 MIL/MM3 Hemoglobin 15.2 GM/DL Hematocrit 46.0 % Mean Corpuscular Volume 89.1 FL Mean Corpuscular Hemoglobin 29.4 PG Mean Corpuscular Hemoglobin Concent 33.0 % Red Cell Distribution Width 13.4 % Platelet Count 390 TH/MM3 Mean Platelet Volume 7.5 FL Neutrophils (%) (Auto) 76.2 % Lymphocytes (%) (Auto) 17.1 % Monocytes (%) (Auto) 3.7 % Eosinophils (%) (Auto) 1.3 % Basophils (%) (Auto) 1.7 % Neutrophils # (Auto) 9.7 TH/MM3 Lymphocytes # (Auto) 2.2 TH/MM3 Monocytes # (Auto) 0.5 TH/MM3 Eosinophils # (Auto) 0.2 TH/MM3 Basophils # (Auto) 0.2 TH/MM3 CBC Comment DIFF FINAL Differential Comment Prothrombin Time 10.3 SEC Prothromb Time International Ratio 0.9 RATIO Activated Partial Thromboplast Time 30.3 SEC Blood Urea Nitrogen 11 MG/DL Creatinine 0.87 MG/DL Random Glucose 133 MG/DL Total Protein 7.1 GM/DL Albumin 3.8 GM/DL Calcium Level 8.9 MG/DL Alkaline Phosphatase 68 U/L Aspartate Amino Transf (AST/SGOT) 13 U/L Alanine Aminotransferase (ALT/SGPT) 33 U/L Total Bilirubin 0.3 MG/DL Sodium Level 140 MEQ/L Potassium Level 3.4 MEQ/L Chloride Level 104 MEQ/L Carbon Dioxide Level 29.1 MEQ/L Anion Gap 7 MEQ/L Estimat Glomerular Filtration Rate 94 ML/MIN Total Creatine Kinase 46 U/L Troponin I LESS THAN 0.02 NG/ML B-Type Natriuretic Peptide 9 PG/ML MDM Medical Decision Making Medical Screen Exam Complete: Yes Emergency Medical Condition: Yes Interpretation(s) EKG shows a sinus rhythm with a ventricular rate of 83. No ST segment elevation or depression. Differential Diagnosis COPD exacerbation vs PNA vs CHF Narrative Course Pt with alpha 1 antitrypsin deficiency presents to the ED with acute shortness of breath, cough since this morning. Given the nature of his extensive medical history and his current conditions, there was a high index of suspicion for COPD exacerbation vs PNA vs CHF. Orders for CBC w/differential, CMP, Cardiac enzymes, BNP, AP/Lat CXR, and IV fluids, and supplemental oxygen were put in place for this patient. Definitive diagnosis and progression of symptomatology will dictate the plan of care as we move forward. Will continue to monitor for re-evaluation. CBC & BMP Diagram 12/31/16 14:15 Total Protein 7.1, Albumin 3.8, Calcium Level 8.9, Alkaline Phosphatase 68, Aspartate Amino Transf (AST/SGOT) 13 L, Alanine Aminotransferase (ALT/SGPT) 33, Total Bilirubin 0.3 trop < 0.02 CK 46 BNP 9 Coags are normal Last Impressions Chest X-Ray 12/31/16 [id number] Signed Impressions: Service Date/Time: Saturday, December 31, 2016 15:07 - CONCLUSION: 1. Stable appearance of the chest with biapical emphysematous changes, right greater than left. Stable postsurgical changes in the right upper lung as well. 2. Increased interstitial markings in both lungs appear chronic and probably represent some degree of fibrosis. No superimposed infiltrate. 3. Multiple old healed fracture deformities in the lateral right mid chest with a rib resection laterally in the same general area. Nitin Juan MD This patient is requesting pain medication. He normally takes Dilaudid 8 mg every 2 hours for pain. I have ordered his usual dose of Dilaudid. Vital Signs Date Time Temp Pulse Resp B/P (MAP) Pulse Ox O2 Delivery O2 Flow Rate FiO2 12/31/16 16:20 Nasal Cannula 4.00 12/31/16 16:20 88 20 102/69 (80) 97 Nasal Cannula 4.00 12/31/16 15:45 98 Nasal Cannula 3.00 12/31/16 14:35 79 18 117/74 (88) 100 Nasal Cannula 3.00 12/31/16 14:19 87 22 96 Nasal Cannula 3.50 12/31/16 14:18 96 Nasal Cannula 3.50 12/31/16 14:18 96 Nasal Cannula 3.50 12/31/16 14:14 97.6 88 22 146/86 (106) 96 When I went in to give the patient discharge instructions, he was sound asleep and did not respond to Dr. Gaspar or calling his name. He is obviously in no distress. He is not having any labored respirations. He is stable for discharge to home. Diagnosis Primary Impression: COPD (chronic obstructive pulmonary disease) Qualified Codes: J44.1 - Chronic obstructive pulmonary disease with (acute) exacerbation Additional Impression: [id number] deficiency Patient Instructions: COPD (Chronic Obstructive Pulmonary Disease) (DC), General Instructions Med/Other Pt SpecificInfo: Prescription(s) given Scripts Levofloxacin (Levaquin) 500 Mg Tablet 500 MG PO DAILY for Infection for 7 Days, #7 TAB 0 Refills Prov: Sanjuana Iraheta MD 12/31/16 Disposition: 01 DISCHARGE HOME Condition: Stable Sanjuana Iraheta MD Dec 31, 2016 14:58
[2016-12-31] MEDS ORDERED: methylPREDNISolone SOD SUCC 125 MG/2 ML VIAL IV PUSH ONE (15:30)
[2016-12-31] MEDS: RESP: ALBUTEROL 2.5 MG/IPRATROPIUM 0.5 MG NEB (SCH) INH ×2 (15:44→15:45)
[2016-12-31 15:45] VITALS: O2SAT 98
--- NOTE | 2016-12-31 16:04 | RADRPT ---
EXAM DATE/TIME: 12/31/2016 15:07 [facility] COMPARISON: CHEST SINGLE AP, November 01, 2016, 21:48. CHEST PA & LAT, May 13, 2015, 18:56. INDICATIONS : Patient's shortness of breath worsening. MEDICAL HISTORY : Alpha one antitrypsin SURGICAL HISTORY : loop recorder ; rt lobectomy 9 yrs ago ENCOUNTER: Initial ACUITY: 2 days PAIN SCORE: 7/10 LOCATION: Bilateral upper chest FINDINGS: PA and lateral views of the chest demonstrate bullous emphysematous changes in the apices, right grea ter than left. Stable postsurgical changes in the right upper lung as evident by fine surgical staple s in this region. Prior rib resection laterally in the right mid chest with old healed fracture defor mities in the same general vicinity. Stable mild interstitial prominence in the lungs appears chronic, likely representing some degree of fibrosis. No confluent infiltrate. Loop recorder projects over left chest. Heart size remains normal. CONCLUSION: 1. Stable appearance of the chest with biapical emphysematous changes, right greater than left. Stabl e postsurgical changes in the right upper lung as well. 2. Increased interstitial markings in both lungs appear chronic and probably represent some degree of fibrosis. No superimposed infiltrate. 3. Multiple old healed fracture deformities in the lateral right mid chest with a rib resection later ally in the same general area. Nitin Juan MD on December 31, 2016 at 15:55 Board Certified Radiologist. This report was verified electronically.
[2016-12-31 16:20] VITALS: BP 102/69; PULSE 88; RESP 20; O2SAT 97
[2016-12-31] MEDS ORDERED: HYDROmorphone HCL 4 MG TAB PO ONE (16:45)
[2016-12-31] MEDS ORDERED: LEVA500T33 PO (16:47)
[2016-12-31] MEDS ORDERED: ONDANSETRON ODT 4 MG TAB PO ONE (17:15)
[2016-12-31 17:54] VITALS: BP 109/55
--- NOTE | 2017-01-01 12:09 | EKG ---
Date Performed: 12/31/2016 Time Performed: 14:09:23 PTAGE: 46 years EKG: Sinus rhythm Borderline short TN interval Otherwise within normal limits PREVIOUS TRACING 11/02/16 Compared to prior tracing no significant change DOCTOR: Albaro Mcintyre Interpretating Date/Time 01/01/2017 12:07:23
== END 2016-12-31 17:55 | disposition home or self-care (01) ==
LOC: PHED 14:01
DX: J44.1 Chronic obstructive pulmonary disease with (acute) exacerbation (principal); E88.01 Alpha-1-antitrypsin deficiency; R68.83 Chills (without fever); I10 Essential (primary) hypertension; E78.00 Pure hypercholesterolemia, unspecified; Z72.0 Tobacco use; Z87.09 Personal history of other diseases of the respiratory system; Z86.59 Personal history of other mental and behavioral disorders; Z86.79 Personal history of other diseases of the circulatory system; Z87.19 Personal history of other diseases of the digestive system; Z87.448 Personal history of other diseases of urinary system; Z87.39 Personal history of other diseases of the musculoskeletal system and connective tissue; Z86.69 Personal history of other diseases of the nervous system and sense organs
CPT/HCPCS: 71020; 80053; 82550; 83880; 84484; 85025; 85610; 85730; 93005; 94640; 94664; 96374; 99285; J2930

== ENCOUNTER 2017-01-10 16:46 | Emergency (ER) | payer MEDICARE, OTHER ==
[~2017-01-10] VITALS: Ht 190.5 cm; Wt 63.0 kg
[~2017-01-10 16:46] MED LIST changes: +DILA8TAB4 PO; +FLUT1INH INH; +IPRASOL INH; +LEVA500T33 PO; +OMEP40CA2 PO; +TRAZ100T10 PO
[2017-01-10 16:49] VITALS: BP 120/83; PULSE 90; RESP 18; TEMP 97.6; O2SAT 94
[2017-01-10] MEDS ORDERED: ACETAMINOPHEN/HYDROcodone 325 MG/5 MG TAB PO ONE (17:15)
--- NOTE | 2017-01-10 17:16 | PD ---
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 Patient states it trip and fall in his house today landing primarily on his left side. He complains primarily of left-sided chest wall pain as well as pain underneath his armpit on the left side. He states that he has a loop recorder in place and when he tripped and fell he thinks he displaced it. He called his net software engineer told him to come in here and be seen. Patient also complains of some neck pain on the right side of his neck but no true midline. Denies any chest pain prior to the event, denies any shortness of breath denies any loss of consciousness. PFSH Past Medical History Hx Anticoagulant Therapy: No Arthritis: No Asthma: No Autoimmune Disease: No Blood Disorders: No Anxiety: Yes Depression: Yes Heart Rhythm Problems: No Cancer: No Cardiac Catheterization: Yes Cardiomyopathy: Yes Cardiovascular Problems: Yes High Cholesterol: Yes Chemotherapy: No Chest Pain: Yes (CHEST WALL PAIN, DENIES ANGINA) Congestive Heart Failure: No COPD: Yes (CHRONIC) Cerebrovascular Accident: No Diabetes: No Diminished Hearing: No Endocrine: No Gastrointestinal Disorders: Yes GERD: Yes Genitourinary: Yes (HX OF SELF-CATHETERIZATION) Headaches: Yes Hiatal Hernia: No Hypertension: Yes Immune Disorder: No Implanted Vascular Access Dvce: Yes Musculoskeletal: Yes (CHRONIC CHEST/LUNG & LEG PAIN) Neurologic: Yes Psychiatric: Yes Reproductive: No Respiratory: Yes Immunizations Current: Yes Migraines: No Myocardial Infarction: No Pneumonia: Yes Radiation Therapy: No Seizures: No Sleep Apnea: No Thyroid Disease: No Ulcer: No PNEUMOCCOCAL Vaccine (Year): 2009 Past Surgical History Abdominal Surgery: No AICD: No Arteriovenous Shunt: No Body Medical Devices: LOOP RECORDER Cardiac Surgery: Yes (LOOP RECORDER- placed 05/05/14) Ear Surgery: No Endocrine Surgery: No Eye Surgery: No Genitourinary Surgery: No Insulin Pump: No Joint Replacement: No Neurologic Surgery: No Oral Surgery: Yes (TEETH REMOVED) Pacemaker: No Thoracic Surgery: Yes (RIGHT LUNG LOBECTOMY) Tonsillectomy: Yes Other Surgery: Yes (SINUS SURGERY, RIGHT LOWER LOBECTOMY, LOOP RECORDER) Family History Family Hypercholesterolemia: Yes Social History Alcohol Use: Yes (Weekends) Tobacco Use: Yes (E-CIGERETTES) Substance Use: Yes (Marijuana occ.) Allergies-Medications (Allergen,Severity, Reaction): Coded Allergies: codeine (Verified Allergy, Severe, Anaphylaxis, 01/10/17) diatrizoate meglumine (Verified Allergy, Severe, Tongue Swelling, [place] , 01/10/17) fentanyl (Verified Allergy, Severe, Hives; nausea/vomiting, 01/10/17) Per patient report gadobenic acid (Verified Allergy, Severe, Tongue Swelling, [place], 01/10) gadodiamide (Verified Allergy, Severe, Tongue Swelling, [place], 01/10/17 ) gadoteridol (Verified Allergy, Severe, Tongue Swelling, [place], 01/10/17 ) iodixanol (Verified Allergy, Severe, Tongue Swelling, [place], 01/10/17) iohexol (Verified Allergy, Severe, Tongue Swelling, [place], 01/10/17) morphine (Verified Allergy, Severe, itching and redness at IV site., 01/10) Pt states not allergic azithromycin (Verified Allergy, Intermediate, Itching, 01/10/17) REDNESS AND ITCHING IN SAME ARM OF IV INFUSION. PT REPORTS TAKING ORAL ZITHROMAX WITHOUT ANY PROBLEMS. methadone (Verified Allergy, Intermediate, Hives, 01/10/17) Per patient report Reported Meds & Prescriptions Reported Meds & Active Scripts Active Xanax (Alprazolam) 1 Mg Tab 1 Mg PO Q6H PRN Oxycodone (Oxycodone HCl) 10 Mg Tab 10 Mg PO Q6H PRN Reported Zofran (Ondansetron HCl) 4 Mg Tab 4 Mg PO Q6HR PRN Breo Ellipta Inh (Fluticasone/Vilanterol) 100-25 Mcg/Act Inh 1 Puff INH DAILY Use daily at the same time. Duoneb (Ipratropium-Albuterol Neb) 0.5-2.5 Mg/3 Ml Neb 1 Nebule INH Q4HR NEB Trazodone (Trazodone HCl) 100 Mg Tablet 100 Mg PO HS Omeprazole 40 Mg Cap 40 Mg PO DAILY Dilaudid (Hydromorphone HCl) 8 Mg Tab 8 Mg PO Q2HR PRN Review of Systems Except as stated in HPI: all other systems reviewed are Neg Physical Exam Narrative GENERAL: Well-developed well-nourished in obvious distress, nasal Oxygen in Place. SKIN: Focused skin assessment warm/dry. HEAD: Atraumatic. Normocephalic. EYES: Pupils equal and round. No scleral icterus. No injection or drainage. ENT: No nasal bleeding or discharge. Mucous membranes pink and moist. NECK: Trachea midline. No JVD. CARDIOVASCULAR: Regular rate and rhythm. No murmur appreciated. There is tenderness to left side of the chest wall, loop recorder is palpated between the third and fourth rib space. There is no obvious bruising laceration and contusion of the left chest wall. Right chest wall is atraumatic. RESPIRATORY: No accessory muscle use. Clear to auscultation. Breath sounds equal bilaterally. GASTROINTESTINAL: Abdomen soft, non-tender, nondistended. Hepatic and splenic margins not palpable. MUSCULOSKELETAL: No obvious deformities. No clubbing. No cyanosis. No edema. No midline CT or L-spine tenderness. There is some tenderness of abduction of the left shoulder as well as forward flexion of left shoulder. No tenderness of the elbows wrists or right shoulder. There is some tenderness over the right lateral neck. NEUROLOGICAL: Awake and alert. No obvious cranial nerve deficits. Motor grossly within normal limits. Normal speech. PSYCHIATRIC: Appropriate mood and affect; insight and judgment normal. Data Data Last Documented VS Vital Signs Date Time Temp Pulse Resp B/P (MAP) Pulse Ox O2 Delivery O2 Flow Rate FiO2 01/10/17 20:03 70 16 129/84 (99) Nasal Cannula 95 01/10/17 19:25 97 01/10/17 16:49 97.6 Orders Orders Chest, Pa & Lat (01/10/17 ) Shoulder, Limited(2vws) (01/10/17 ) Acetamin-Hydrocod 325-5 Mg (Marne 5-325 (01/10/17 17:15) Ed Discharge Order (01/10/17 18:47) Oxycodone (Roxicodone) (01/10/17 19:15) Ondansetron Odt (Zofran Odt) (01/10/17 19:30) [facility] Medical Decision Making Medical Screen Exam Complete: Yes Emergency Medical Condition: Yes Differential Diagnosis Chest wall pain, fall, rib fracture, C-spine injury excluded by Nexus criteria. Narrative Course Patient roomed emergency department, appears well in no obvious distress. X- rays are obtained of his chest as well as his left shoulder showing no acute bony abnormality. There is no external signs of trauma on his person. After Marne given he appears much more comfortable and in no distress. He did request additional pain medicine. Review of his E forced shows that he takes quite a hefty amount of oxycodone at home. This may make his pain somewhat more difficult to control. However he is saturating well and is prescribed oxygen. Discussed no indication further workup at this time is stable for discharge. Diagnosis Primary Impression: Chest wall pain Additional Impression: Fall Patient Instructions: Chest Wall Pain (GEN), General Instructions Additional Instructions: Follow up with your regular physician and Dr Houser by phone in the morning. Disposition: 01 DISCHARGE HOME Condition: Stable Huy Mccabe MD Jan 10, 2017 17:16
[2017-01-10] MEDS ORDERED: ZOFR4TAB PO (19:15)
[2017-01-10 19:25] VITALS: BP 137/87; PULSE 73; RESP 16; O2SAT 97
[2017-01-10] MEDS ORDERED: ONDANSETRON ODT 4 MG TAB PO ONE (19:30)
--- NOTE | 2017-01-10 19:42 | RADRPT ---
EXAM DATE/TIME: 01/10/2017 17:36 [facility] COMPARISON: No previous studies available for comparison. INDICATIONS : Left shoulder pain post fall. MEDICAL HISTORY : None. SURGICAL HISTORY : None. ENCOUNTER: Initial ACUITY: 1 day PAIN SCORE: 4/10 LOCATION: Left shoulder. FINDINGS: Two view examination of the left shoulder demonstrates no evidence of fracture or dislocation. The g lenohumeral and acromioclavicular joints are maintained. Bony mineralization is normal. CONCLUSION: No evidence of recent bony injury. Clifford Gant MD on January 10, 2017 at 19:40 Board Certified Radiologist. This report was verified electronically.
--- NOTE | 2017-01-10 19:42 | RADRPT ---
EXAM DATE/TIME: 01/10/2017 17:36 [facility] COMPARISON: CHEST PA & LAT, December 31, 2016, 15:07. INDICATIONS : Evaluate loop recorder placement post fall. MEDICAL HISTORY : Alpha one antitrypsin SURGICAL HISTORY : loop recorder ; rt lobectomy 9 yrs ago ENCOUNTER: Initial ACUITY: 1 day PAIN SCORE: 4/10 LOCATION: Left chest FINDINGS: PA and lateral views of the chest demonstrate bullous emphysematous changes in the apices, right grea ter than left. Stable postsurgical changes in the right upper lung as evident by fine surgical staple s in this region. Prior rib resection laterally in the right mid chest with old healed fracture defor mities in the same general vicinity. Stable mild interstitial prominence in the lungs is unchanged from prior examination 12/31/16. No con fluent infiltrate. Both hemidiaphragms are well delineated. Loop recorder projects over left chest. Heart size remains normal. CONCLUSION: 1. Stable interstitial infiltrates in both lungs. No focal areas of consolidation. 2. No new findings. Clifford Gant MD on January 10, 2017 at 19:38 Board Certified Radiologist. This report was verified electronically.
[2017-01-10 19:58] VITALS: RESP 16
[2017-01-10 20:03] VITALS: BP 129/84
== END 2017-01-10 20:07 | disposition home or self-care (01) ==
LOC: PHED 16:46
DX: R07.89 Other chest pain (principal); I42.9 Cardiomyopathy, unspecified; E78.00 Pure hypercholesterolemia, unspecified; J44.9 Chronic obstructive pulmonary disease, unspecified; I10 Essential (primary) hypertension; W01.0XXA Fall on same level from slipping, tripping and stumbling without subsequent striking against object, initial encounter; Z88.5 Allergy status to narcotic agent; Z72.0 Tobacco use; Z95.818 Presence of other cardiac implants and grafts
CPT/HCPCS: 71020; 73030; 99284

== ENCOUNTER 2017-01-23 22:57 | Emergency (ER) | payer MEDICARE, OTHER ==
[~2017-01-23] VITALS: Ht 190.5 cm; Wt 62.6 kg
[~2017-01-23 22:57] MED LIST changes: -LEVA500T33 PO; +ZOFR4TAB PO
[2017-01-23 23:01] VITALS: BP 128/77; PULSE 112; RESP 24; TEMP 97.8; O2SAT 96
[2017-01-23 23:10] VITALS: O2SAT 100
[2017-01-23] MEDS ORDERED: RESP: ALBUTEROL 2.5 MG/IPRATROPIUM 0.5 MG NEB (PRN) ONE (23:13)
[2017-01-23 23:15] VITALS: O2SAT 98
[2017-01-23] MEDS ORDERED: methylPREDNISolone SOD SUCC 125 MG/2 ML VIAL IV PUSH ONE (23:30)
[2017-01-23] MEDS ORDERED: diphenhydrAMINE HCL 50 MG/ML VIAL IV PUSH ONE (23:30)
[2017-01-23] MEDS ORDERED: SODIUM CHLORIDE 0.9% FLUSH 10 ML FLUSH IVF PRN (23:30)
[2017-01-23] MEDS ORDERED: FAMOTIDINE 20 MG/2 ML VIAL IV PUSH ONE (23:30)
[2017-01-23] MEDS ORDERED: RESP: ALBUTEROL 2.5 MG/IPRATROPIUM 0.5 MG NEB (SCH) NEB ONE (23:45)
--- NOTE | 2017-01-23 23:47 | RADRPT ---
EXAM DATE/TIME: 01/23/2017 23:34 [facility] COMPARISON: CHEST SINGLE AP, November 01, 2016, 21:48. INDICATIONS : Shortness of breath. MEDICAL HISTORY : Alpha one antitrypsin SURGICAL HISTORY : loop recorder ; rt lobectomy 9 yrs ago ENCOUNTER: Initial ACUITY: 1 day PAIN SCORE: 0/10 LOCATION: Bilateral chest FINDINGS: 2 AP erect portable views of the chest were obtained and again demonstrate hyperinflation of both addie gs. Postoperative changes are noted status post right lobectomy with surgical clips projected over th e right upper lung. There is bullous change in both upper lobes. There are no new confluent infiltrat es or effusions. The heart size remains within normal limits. The bony thorax is intact. CONCLUSION: 1. Hyperinflation and bullous change again noted. 2. Postoperative changes status post right lobectomy. 3. No acute cardiopulmonary disease. Guero Moses MD on January 23, 2017 at 23:44 Board Certified Radiologist. This report was verified electronically.
[2017-01-23 23:49] LABS: AUTOMATED NEUTROPHIL # 8.3 TH/MM3 (1.8-7.7); BASOPHIL # 0.1 TH/MM3 (0-0.2); BASOPHIL % 0.6 % (0.0-2.0); EOSINOPHIL # 0.3 TH/MM3 (0-0.4); EOSINOPHIL % 2.2 % (0.0-4.0); HEMO FLAGS DIFF FINAL; LYMPH % 26.3 % (9.0-44.0); LYMPHOCYTE # 3.5 TH/MM3 (1.0-4.8); MEAN CELL VOLUME 90.5 FL (80.0-100.0); MEAN CORPUSCULAR HEMOGLOBIN 29.6 PG (27.0-34.0); MEAN CORPUSCULAR HGB CONC 32.7 % (32.0-36.0); MONO % 7.5 % (0.0-8.0); NEUT % 63.4 % (16.0-70.0); PLATELET COUNT 331 TH/MM3 (150-450); RED CELL DISTRIBUTION WIDTH 14.1 % (11.6-17.2); WHITE BLOOD COUNT 13.2 TH/MM3 (4.0-11.0)
[2017-01-23 23:57] LABS: CHLORIDE 109 MEQ/L (98-107); POTASSIUM 4.2 MEQ/L (3.5-5.1); SODIUM (NA) 141 MEQ/L (136-145)
[2017-01-24] LABS: ANION GAP 7 MEQ/L (5-15); BICARBONATE 25.3 MEQ/L (21.0-32.0); BLOOD UREA NITROGEN 18 MG/DL (7-18); MAGNESIUM 1.9 MG/DL (1.5-2.5)
[2017-01-24 00:03] LABS: GLOMERULAR FILTRATION RATE 82 ML/MIN (>89)
--- NOTE | 2017-01-24 00:17 | PD ---
HPI Chief Complaint: Respiratory Symptoms Time Seen by Provider: 23:26 Travel History International Travel<30 days: No Contact w/Intl Traveler<30days: No Traveled to known affect area: No History of Present Illness HPI 46-year-old male presents to the emergency department by private transportation for evaluation of shortness of breath wheezing and possible allergic reaction. Patient states he's had exacerbation of his COPD for the past 48 hours. Patient was recently hospitalized at [facility] for the hospital for 3 weeks due to exacerbation of his asthma. Patient also has history of bullous emphysema and of alpha one antitrypsin deficiency. Patient does not report any fever or chills. Patient denies any urticaria. Patient's had no pruritus. Patient has had no lip tongue or throat swelling. No hoarseness or stridor. Patient has had exacerbation of his reactive airways disease with increased wheezing and shortness of breath. Patient complains of shortness of breath related chest tightness. Patient states that discomfort is 8/10 in intensity and nonradiating. PFSH Past Medical History Narrative Medical Anxiety depression dyslipidemia COPD alpha-1 antitrypsin deficiency with bullous emphysema loop recorder cardiomyopathy lobectomy hypertension Hx Anticoagulant Therapy: No Arthritis: No Asthma: No Autoimmune Disease: No Blood Disorders: No Anxiety: Yes Depression: Yes Heart Rhythm Problems: No Cancer: No Cardiac Catheterization: Yes Cardiomyopathy: Yes Cardiovascular Problems: Yes High Cholesterol: Yes Chemotherapy: No Chest Pain: Yes (CHEST WALL PAIN, DENIES ANGINA) Congestive Heart Failure: No COPD: Yes (CHRONIC) Cerebrovascular Accident: No Diabetes: No Diminished Hearing: No Endocrine: No Gastrointestinal Disorders: Yes GERD: Yes Genitourinary: Yes (HX OF SELF-CATHETERIZATION) Headaches: Yes Hiatal Hernia: No Hypertension: Yes Immune Disorder: No Implanted Vascular Access Dvce: Yes Musculoskeletal: Yes (CHRONIC CHEST/LUNG & LEG PAIN) Neurologic: Yes Psychiatric: Yes Reproductive: No Respiratory: Yes (COPD, chronic O2 user ) Immunizations Current: Yes Migraines: No Myocardial Infarction: No Pneumonia: Yes Radiation Therapy: No Seizures: No Sleep Apnea: No Thyroid Disease: No Ulcer: No Tetanus Vaccination: < 5 Years Influenza Vaccination: Yes PNEUMOCCOCAL Vaccine (Year): 2009 Past Surgical History Abdominal Surgery: No AICD: No Arteriovenous Shunt: No Body Medical Devices: LOOP RECORDER Cardiac Surgery: Yes (LOOP RECORDER- placed 05/05/14) Ear Surgery: No Endocrine Surgery: No Eye Surgery: No Genitourinary Surgery: No Insulin Pump: No Joint Replacement: No Neurologic Surgery: No Oral Surgery: Yes (TEETH REMOVED) Pacemaker: No Thoracic Surgery: Yes (RIGHT LUNG LOBECTOMY) Tonsillectomy: Yes Other Surgery: Yes (SINUS SURGERY, RIGHT LOWER LOBECTOMY, LOOP RECORDER) Family History Family Hypercholesterolemia: Yes Social History Alcohol Use: Yes (Weekends) Tobacco Use: Yes (E-CIGERETTES) Substance Use: Yes (Marijuana occ.) Allergies-Medications (Allergen,Severity, Reaction): Coded Allergies: codeine (Verified Allergy, Severe, Anaphylaxis, 01/23/17) diatrizoate meglumine (Verified Allergy, Severe, Tongue Swelling, [place] , 01/23/17) fentanyl (Verified Allergy, Severe, Hives; nausea/vomiting, 01/23/17) Per patient report gadobenic acid (Verified Allergy, Severe, Tongue Swelling, [place], ) gadodiamide (Verified Allergy, Severe, Tongue Swelling, [place], 01/23/17) gadoteridol (Verified Allergy, Severe, Tongue Swelling, [place], 01/23/17) iodixanol (Verified Allergy, Severe, Tongue Swelling, [place], 01/23/17) iohexol (Verified Allergy, Severe, Tongue Swelling, [place], 01/23/17) morphine (Verified Allergy, Severe, itching and redness at IV site., ) Pt states not allergic azithromycin (Verified Allergy, Intermediate, Itching, 01/23/17) REDNESS AND ITCHING IN SAME ARM OF IV INFUSION. PT REPORTS TAKING ORAL ZITHROMAX WITHOUT ANY PROBLEMS. methadone (Verified Allergy, Intermediate, Hives, 01/23/17) Per patient report Reported Meds & Prescriptions Reported Meds & Active Scripts Active Xanax (Alprazolam) 1 Mg Tab 1 Mg PO Q6H PRN Oxycodone (Oxycodone HCl) 10 Mg Tab 10 Mg PO Q6H PRN Reported Zofran (Ondansetron HCl) 4 Mg Tab 4 Mg PO Q6HR PRN Breo Ellipta Inh (Fluticasone/Vilanterol) 100-25 Mcg/Act Inh 1 Puff INH DAILY Use daily at the same time. Duoneb (Ipratropium-Albuterol Neb) 0.5-2.5 Mg/3 Ml Neb 1 Nebule INH Q4HR NEB Trazodone (Trazodone HCl) 100 Mg Tablet 100 Mg PO HS Omeprazole 40 Mg Cap 40 Mg PO DAILY Review of Systems Except as stated in HPI: all other systems reviewed are Neg General / Constitutional: No: Fever, Chills HENT: No: Congestion Cardiovascular: No: Chest Pain or Discomfort Respiratory: Positive: Cough, Shortness of Breath, Wheezing Gastrointestinal: No: Nausea, Vomiting, Abdominal Pain Genitourinary: No: Flank Pain Musculoskeletal: No: Myalgias, Arthralgias Skin: Positive Rash, Positive Itching Neurologic: No: Weakness Psychiatric: Positive: Anxiety Hematologic/Lymphatic: No: Lymph Node Enlargement Physical Exam Narrative GENERAL: Well-developed well-nourished female in obvious respiratory distress with audible wheezing no stridor no hoarseness. SKIN: Warm and dry. Papular rash over the upper back without urticaria few pustules no vesicles. Lesser similar papules to the anterior chest wall course upon to hair follicles. No petechia no purpura. HEAD: Normocephalic. EYES: No scleral icterus. No injection or drainage. NECK: Supple, trachea midline. No JVD or lymphadenopathy. CARDIOVASCULAR: Increased Regular rate and rhythm without murmurs, gallops, or rubs. RESPIRATORY: Breath sounds equal bilaterally. Bilateral wheezing. No accessory muscle use. GASTROINTESTINAL: Abdomen soft, non-tender, nondistended. MUSCULOSKELETAL: No cyanosis, or edema. BACK: Nontender without obvious deformity. No CVA tenderness. Data Data Last Documented VS Vital Signs Date Time Temp Pulse Resp B/P (MAP) Pulse Ox O2 Delivery O2 Flow Rate FiO2 01/24/17 00:30 89 18 110/52 (71) 100 Nasal Cannula 4.00 01/23/17 23:01 97.8 Orders Orders Albuterol-Ipratropium Neb (Duoneb Neb) (01/23/17 23:13) Methylprednisolone So Succ Inj (Solumedr (01/23/17 23:30) Chest, Single Ap (01/23/17 ) Complete Blood Count With Diff (01/23/17 23:26) Basic Metabolic Panel (Bmp) (01/23/17 23:26) Magnesium (Mg) (01/23/17 23:26) Troponin I (01/23/17 23:26) Iv Access Insert/Monitor (01/23/17:) Electrocardiogram (01/23/17:) Ecg Monitoring (01/23/17:) Oximetry (01/23/17:) Oxygen Administration (01/23/17:) Sodium Chloride 0.9% Flush (Ns Flush) (01/23/17 23:30) Drug Screen, Random Urine (01/23/17 23:26) Diphenhydramine Inj (Benadryl Inj) (01/23/17 23:30) Famotidine Inj (Pepcid Inj) (01/23/17 23:30) Albuterol-Ipratropium Neb (Duoneb Neb) (01/23/17 23:45) Labs Laboratory Tests Test 01/23/17 23:15 White Blood Count 13.2 TH/MM3 Red Blood Count 5.20 MIL/MM3 Hemoglobin 15.4 GM/DL Hematocrit 47.0 % Mean Corpuscular Volume 90.5 FL Mean Corpuscular Hemoglobin 29.6 PG Mean Corpuscular Hemoglobin Concent 32.7 % Red Cell Distribution Width 14.1 % Platelet Count 331 TH/MM3 Mean Platelet Volume 7.4 FL Neutrophils (%) (Auto) 63.4 % Lymphocytes (%) (Auto) 26.3 % Monocytes (%) (Auto) 7.5 % Eosinophils (%) (Auto) 2.2 % Basophils (%) (Auto) 0.6 % Neutrophils # (Auto) 8.3 TH/MM3 Lymphocytes # (Auto) 3.5 TH/MM3 Monocytes # (Auto) 1.0 TH/MM3 Eosinophils # (Auto) 0.3 TH/MM3 Basophils # (Auto) 0.1 TH/MM3 CBC Comment DIFF FINAL Differential Comment Blood Urea Nitrogen 18 MG/DL Creatinine 0.98 MG/DL Random Glucose 118 MG/DL Calcium Level 8.2 MG/DL Magnesium Level 1.9 MG/DL Sodium Level 141 MEQ/L Potassium Level 4.2 MEQ/L Chloride Level 109 MEQ/L Carbon Dioxide Level 25.3 MEQ/L Anion Gap 7 MEQ/L Estimat Glomerular Filtration Rate 82 ML/MIN Troponin I LESS THAN 0.02 NG/ML MDM Medical Decision Making Medical Screen Exam Complete: Yes Emergency Medical Condition: Yes Medical Record Reviewed: Yes Interpretation(s) EKG: Sinus tachycardia rate [address] elevation injury pattern or ectopy noted Differential Diagnosis Exacerbation COPD, pneumothorax, PE, ACS, pneumonia, contact dermatitis, folliculitis Narrative Course Patient placed on cardiac rehabilitation program director IV access obtained specimens collected and sent for resulting: Patient administered Benadryl and Pepcid for pruritic rash as well as DuoNeb updrafts 3 with Solu-Medrol 125 mg IV times one dose Patient spilled his DuoNeb updraft solution and additional DuoNeb updraft was administered. Patient reports that he feels markedly improved breathing is improved and on reassessment auscultation wheezing has diminished significantly patient demonstrating no work of breathing. Pruritic rash has decreased and responded well to Benadryl and Pepcid. Patient desires of being discharged to home. Patient has had issues with recurrent dermatitis and we placed on Bactrim and first dose of oral Bactrim administered in the emergency department. Patient reassures this provider that he has plenty of bronchodilator with medication for his nebulizer and rescue inhaler at home. Patient however is not on steroid therapy at this time will be given a prescription for steroid taper. Patient is encouraged to keep his appointment as scheduled with his hand packer and primary care provider this week. Patient is encouraged to return to the emergency department for any concerns or change in condition. Diagnosis Primary Impression: COPD (chronic obstructive pulmonary disease) Qualified Codes: J43.9 - Emphysema, unspecified Additional Impressions: Allergic dermatitis Folliculitis Referrals: Primary Care Physician 2 days Insurance Marketing Specialist 3 days Patient Instructions: General Instructions Additional Instructions: Follow-up with your primary care provider and hand packer as scheduled Complete course of antibiotic as prescribed Complete course of steroid taper Return to the emergency department for any concerns or change in condition Increase fluid hydration Med/Other Pt SpecificInfo: Prescription(s) given Scripts Methylprednisolone Dosepak (Medrol Dosepak) 4 Mg Dspk 4 MG PO DIRECTED, #1 DSPK 0 Refills Per Pharmacist direction Prov: Tere Alfred MD 01/24/17 Mupirocin Topical (Bactroban Topical) 22 Gm Cream 1 APPLIC TOPICAL BID for Mgmt Bacterial Infection, #1 TUBE 0 Refills Prov: Tere Alfred MD 01/24/17 Sulfamethoxazole-Trimethoprim (Bactrim DS) 800-160 Mg Tab 1 TAB PO BID for Infection, #14 TAB 0 Refills Prov: Tere Alfred MD 01/24/17 Disposition: 01 DISCHARGE HOME Condition: Stable Tere Alfred MD Jan 24, 2017 00:17
[2017-01-24 00:30] VITALS: BP 110/52; PULSE 89; RESP 18; O2SAT 100
[2017-01-24] MEDS ORDERED: MUPI2%T TOPICAL (01:21)
[2017-01-24] MEDS ORDERED: MEDR4PAK PO (01:21)
[2017-01-24] MEDS ORDERED: BACT800T5 PO (01:21)
[2017-01-24] MEDS ORDERED: SULFAMETHOXAZOLE-TRIMETHOPRIM DS 800-160 MG TAB PO ONE (01:30)
[2017-01-24 02:11] VITALS: BP 113/62; PULSE 85; RESP 18; TEMP 97.8; O2SAT 100
--- NOTE | 2017-01-24 19:56 | EKG ---
Date Performed: 01/23/2017 Time Performed: 23:39:00 PTAGE: 46 years EKG: SINUS TACHYCARDIA Since previous tracing, no significant change noted ABNORMAL RHYTHM ECG PREVIOUS TRACING : 12/31/2016 14.09 DOCTOR: Brando Nicholson Interpretating Date/Time 01/24/2017 19:54:49
== END 2017-01-24 02:15 | disposition home or self-care (01) ==
LOC: PHED 22:57
DX: J44.1 Chronic obstructive pulmonary disease with (acute) exacerbation (principal); L23.9 Allergic contact dermatitis, unspecified cause; L73.9 Follicular disorder, unspecified; I10 Essential (primary) hypertension; E78.00 Pure hypercholesterolemia, unspecified; I42.9 Cardiomyopathy, unspecified; E78.5 Hyperlipidemia, unspecified; R94.31 Abnormal electrocardiogram [ECG] [EKG]; K21.9 Gastro-esophageal reflux disease without esophagitis; F32.9 Major depressive disorder, single episode, unspecified; F17.290 Nicotine dependence, other tobacco product, uncomplicated; Z99.81 Dependence on supplemental oxygen; Z88.5 Allergy status to narcotic agent; Z79.899 Other long term (current) drug therapy; Z98.890 Other specified postprocedural states
CPT/HCPCS: 71010; 80048; 80307; 83735; 84484; 85025; 93005; 94640; 94664; 96374; 96375; 99285; J1200; J2930

== ENCOUNTER 2017-02-13 18:22 | Observation (INO) | payer MEDICARE, OTHER ==
[2017-02-13] VITALS (7 sets, daily range): BP systolic 134–161; BP diastolic 82–97; PULSE 79–101; RESP 16–24; TEMP 97–98.1; O2SAT 95–98
[~2017-02-13] VITALS: Ht 190.5 cm; Wt 65.5 kg
[~2017-02-13 18:22] MED LIST changes: +BACT800T5 PO; -DILA8TAB4 PO; +MEDR4PAK PO; +MUPI2%T TOPICAL
[2017-02-13] MEDS ORDERED: SODIUM CHLORIDE 0.9% FLUSH 10 ML FLUSH IVF PRN (18:45)
[2017-02-13] MEDS ORDERED: methylPREDNISolone SOD SUCC 125 MG/2 ML VIAL IV PUSH ONE (18:45)
--- NOTE | 2017-02-13 18:54 | PD ---
HPI Chief Complaint: Respiratory Symptoms Time Seen by Provider: 18:36 Travel History International Travel<30 days: No Contact w/Intl Traveler<30days: No Traveled to known affect area: No History of Present Illness HPI 47-year-old male with history of alpha 1 antitrypsin deficiency, chronic lung disease, on home O2, here for evaluation of all of shortness of breath, chest tightness, and bilateral lower extremity weakness. The patient reports that he is chronically short of breath, however it worsened today. He complains of bilateral lower extremity weakness for the last 6 months, however became more concerning to him over the last couple of days. Chest tightness is moderate, constant, no modifying factors. He denies fevers, chills, cough, or recent illness. He tells me that he has had some urinary incontinence, last time was about 2 days ago. No bowel incontinence. No upper extremity weakness. No back pain. Denies IVDU. States that he takes oxycodone for pain and is also on Xanax. He was seen in the emergency department earlier this month and had a folliculitis on his back that was treated with antibiotics and has resolved. PFSH Past Medical History Hx Anticoagulant Therapy: No Arthritis: No Asthma: No Autoimmune Disease: No Blood Disorders: No Anxiety: Yes Depression: Yes Heart Rhythm Problems: No Cancer: No Cardiac Catheterization: Yes Cardiomyopathy: Yes Cardiovascular Problems: Yes High Cholesterol: Yes Chemotherapy: No Chest Pain: Yes (CHEST WALL PAIN, DENIES ANGINA) Congestive Heart Failure: No COPD: Yes (CHRONIC) Cerebrovascular Accident: No Diabetes: No Diminished Hearing: No Endocrine: No Gastrointestinal Disorders: Yes GERD: Yes Genitourinary: Yes (HX OF SELF-CATHETERIZATION) Headaches: Yes Hiatal Hernia: No Hypertension: Yes Immune Disorder: No Implanted Vascular Access Dvce: Yes Musculoskeletal: Yes (CHRONIC CHEST/LUNG & LEG PAIN) Neurologic: Yes Psychiatric: Yes Reproductive: No Respiratory: Yes (COPD, chronic O2 user ) Immunizations Current: Yes Migraines: No Myocardial Infarction: No Pneumonia: Yes Radiation Therapy: No Seizures: No Sleep Apnea: No Thyroid Disease: No Ulcer: No PNEUMOCCOCAL Vaccine (Year): 2009 Past Surgical History Abdominal Surgery: No AICD: No Arteriovenous Shunt: No Body Medical Devices: LOOP RECORDER Cardiac Surgery: Yes (LOOP RECORDER- placed 05/05/14) Ear Surgery: No Endocrine Surgery: No Eye Surgery: No Genitourinary Surgery: No Insulin Pump: No Joint Replacement: No Neurologic Surgery: No Oral Surgery: Yes (TEETH REMOVED) Pacemaker: No Thoracic Surgery: Yes (RIGHT LUNG LOBECTOMY) Tonsillectomy: Yes Other Surgery: Yes (SINUS SURGERY, RIGHT LOWER LOBECTOMY, LOOP RECORDER) Family History Family Hypercholesterolemia: Yes Social History Alcohol Use: Yes (Weekends) Tobacco Use: Yes (E-CIGERETTES) Substance Use: Yes (Marijuana occ.) Allergies-Medications (Allergen,Severity, Reaction): Coded Allergies: codeine (Verified Allergy, Severe, Anaphylaxis, 02/13/17) diatrizoate meglumine (Verified Allergy, Severe, Tongue Swelling, [place] , 02/13/17) fentanyl (Verified Allergy, Severe, Hives; nausea/vomiting, 02/13/17) Per patient report gadobenic acid (Verified Allergy, Severe, Tongue Swelling, [place], 02/13) gadodiamide (Verified Allergy, Severe, Tongue Swelling, [place], 02/13/17 ) gadoteridol (Verified Allergy, Severe, Tongue Swelling, [place], 02/13/17 ) iodixanol (Verified Allergy, Severe, Tongue Swelling, [place], 02/13/17) iohexol (Verified Allergy, Severe, Tongue Swelling, [place], 02/13/17) morphine (Verified Allergy, Severe, itching and redness at IV site., 02/13) Pt states not allergic azithromycin (Verified Allergy, Intermediate, Itching, 02/13/17) REDNESS AND ITCHING IN SAME ARM OF IV INFUSION. PT REPORTS TAKING ORAL ZITHROMAX WITHOUT ANY PROBLEMS. methadone (Verified Allergy, Intermediate, Hives, 02/13/17) Per patient report Reported Meds & Prescriptions Reported Meds & Active Scripts Active Xanax (Alprazolam) 1 Mg Tab 1 Mg PO Q6H PRN Oxycodone (Oxycodone HCl) 10 Mg Tab 10 Mg PO Q6H PRN Reported Breo Ellipta Inh (Fluticasone/Vilanterol) 100-25 Mcg/Act Inh 1 Puff INH DAILY Use daily at the same time. Duoneb (Ipratropium-Albuterol Neb) 0.5-2.5 Mg/3 Ml Neb 1 Nebule INH Q4HR NEB Trazodone (Trazodone HCl) 100 Mg Tablet 300 Mg PO HS Omeprazole 40 Mg Cap 40 Mg PO DAILY Review of Systems Except as stated in HPI: all other systems reviewed are Neg Physical Exam Narrative GENERAL: Well-developed, well-nourished, no apparent distress. SKIN: Focused skin assessment warm/dry. No rash. HEAD: Atraumatic. Normocephalic. EYES: Pupils equal and round. No scleral icterus. No injection or drainage. ENT: Mucous membranes pink and moist. NECK: Trachea midline. No JVD. CARDIOVASCULAR: Regular rate and rhythm. No murmur appreciated. RESPIRATORY: No accessory muscle use. Inspiratory and expiratory wheezes bilaterally. No rales or rhonchi. Breath sounds equal bilaterally. GASTROINTESTINAL: Abdomen soft, non-tender, nondistended. MUSCULOSKELETAL: No obvious deformities. No clubbing. No cyanosis. No edema. No midline vertebral step-off or tenderness. Normal muscle strength and range of motion in bilateral lower extremities in flexion and extension. NEUROLOGICAL: Awake and alert. No obvious cranial nerve deficits. Motor grossly within normal limits. Normal speech. Great toe extension present bilaterally. Brisk patellar tendon reflexes bilaterally. No saddle anesthesia. PSYCHIATRIC: Appropriate mood and affect; insight and judgment normal. Data Data Last Documented VS Vital Signs Date Time Temp Pulse Resp B/P (MAP) Pulse Ox O2 Delivery O2 Flow Rate FiO2 02/13/17 21:16 89 18 136/82 (100) 96 Nasal Cannula 02/13/17 20:52 3.50 02/13/17 18:34 98.1 Orders Orders Ckmb (Isoenzyme) Profile (02/13/17 18:43) Complete Blood Count With Diff (02/13/17 18:43) Comprehensive Metabolic Panel (02/13/17 18:43) Magnesium (Mg) (02/13/17 18:43) Prothrombin Time / Inr (Pt) (02/13/17 18:43) Act Partial Throm Time (Ptt) (02/13/17 18:43) Troponin I (02/13/17 18:43) Chest, Single Ap (02/13/17 18:43) Ecg Monitoring (02/13/17 18:43) Iv Access Insert/Monitor (02/13/17 18:43) Oximetry (02/13/17 18:43) Oxygen Administration (02/13/17 18:43) Sodium Chloride 0.9% Flush (Ns Flush) (02/13/17 18:45) Methylprednisolone So Succ Inj (Solumedr (02/13/17 18:45) Albuterol-Ipratropium Neb (Duoneb Neb) (02/13/17 18:45) Westergren Sedimentation Rate (02/13/17 18:46) Mri T Spine W/O Contrast (02/13/17 ) Mri L Spine W/O Contrast (02/13/17 ) B-Type Natriuretic Peptide (02/13/17 19:45) CKMB (02/13/17 19:15) CKMB% (02/13/17 19:15) Electrocardiogram (02/13/17 18:41) Aspirin Chew (Aspirin Chew) (02/13/17 22:15) Labs Laboratory Tests Test 02/13/17 19:15 White Blood Count 13.2 TH/MM3 Red Blood Count 4.93 MIL/MM3 Hemoglobin 14.8 GM/DL Hematocrit 43.4 % Mean Corpuscular Volume 88.0 FL Mean Corpuscular Hemoglobin 29.9 PG Mean Corpuscular Hemoglobin Concent 34.0 % Red Cell Distribution Width 13.8 % Platelet Count 414 TH/MM3 Mean Platelet Volume 7.8 FL Neutrophils (%) (Auto) 66.3 % Lymphocytes (%) (Auto) 25.0 % Monocytes (%) (Auto) 6.3 % Eosinophils (%) (Auto) 1.5 % Basophils (%) (Auto) 0.9 % Neutrophils # (Auto) 8.8 TH/MM3 Lymphocytes # (Auto) 3.3 TH/MM3 Monocytes # (Auto) 0.8 TH/MM3 Eosinophils # (Auto) 0.2 TH/MM3 Basophils # (Auto) 0.1 TH/MM3 CBC Comment DIFF FINAL Differential Comment Erythrocyte Sedimentation Rate 1 mm/hr Prothrombin Time 10.2 SEC Prothromb Time International Ratio 1.0 RATIO Activated Partial Thromboplast Time 28.5 SEC Blood Urea Nitrogen 15 MG/DL Creatinine 0.91 MG/DL Random Glucose 91 MG/DL Total Protein 6.5 GM/DL Albumin 3.4 GM/DL Calcium Level 8.6 MG/DL Magnesium Level 2.0 MG/DL Alkaline Phosphatase 61 U/L Aspartate Amino Transf (AST/SGOT) 19 U/L Alanine Aminotransferase (ALT/SGPT) 24 U/L Total Bilirubin 0.3 MG/DL Sodium Level 142 MEQ/L Potassium Level 3.5 MEQ/L Chloride Level 103 MEQ/L Carbon Dioxide Level 32.5 MEQ/L Anion Gap 7 MEQ/L Estimat Glomerular Filtration Rate 89 ML/MIN Total Creatine Kinase 123 U/L Creatine Kinase MB 1.7 NG/ML Troponin I LESS THAN 0.02 NG/ML B-Type Natriuretic Peptide LESS THAN 2 PG/ML MDM Medical Decision Making Medical Screen Exam Complete: Yes Emergency Medical Condition: Yes Medical Record Reviewed: Yes Interpretation(s) EKG: Sinus, rate 99, normal axis, normal intervals, no acute ischemic abnormality. Differential Diagnosis Chronic lung disease, reactive airway disease, pneumonia, ACS, spinal cord compression/cauda equina syndrome/conus medullaris syndrome, Guillain-Morataya unlikely, PMR, peripheral neuropathy Narrative Course Vital signs show heart rate 94, blood pressure 161/97, pulse ox 95% on 3.5 L, oral temp of 98.1F. CBC: WBC 13.2, hemoglobin 14.8, hematocrit 43.4, platelets 414 CMP is unremarkable. Cardiac enzymes are negative. BNP is less than 2. ESR is 1. Chest x-ray: CONCLUSION: 1. Mild bilateral perihilar interstitial opacities suggesting mild pulmonary edema. 2. Hyperlucency of the lung apices again seen indicating emphysema. MRI T spine: CONCLUSION: Minimal central disc protrusions of the mid thoracic spine. Central canal diameter within normal limits at all levels. Neural foraminal diameters within normal limits at all levels. Spinal cord signal within normal limits. MRI L spine: CONCLUSION: Large left lateral disc protrusion at L4-5 narrowing the left neural foramen and left lateral recess with impingement of at least the left L5 nerve root. On physical exam the patient has no appreciable lower extremity weakness, although he states he feels as though his legs are weak. He has brisk patellar tendon reflexes bilaterally with great toe extension present bilaterally. There is no saddle anesthesia. Case was discussed with on-call neurosurgeon Dr. Campbell who reports that the MRI of the L-spine findings should not cause any weakness, and there is no neurosurgical intervention to be done at this time. Patient was made aware of all findings. He continues to complain of shortness of breath and chest tightness despite receiving 3 DuoNeb treatments and IV Solu- Medrol. Clinically he is not in any respiratory distress, however he does have significant pulmonary history, and because of this I will admit him for overnight observation. He will be given a dose of aspirin. Case discussed with hospitalist Dr. Grullon who will admit the patient to her service. Diagnosis Primary Impression: Chest pain Qualified Codes: R07.9 - Chest pain, unspecified Additional Impressions: COPD exacerbation Lumbar herniated disc Admitting Information Admitting Physician Requests: Observation Neno Montoya MD Feb 13, 2017 18:54
[2017-02-13] MEDS: RESP: ALBUTEROL 2.5 MG/IPRATROPIUM 0.5 MG NEB (SCH) INH (18:59)
[2017-02-13 19:36] LABS: AUTOMATED NEUTROPHIL # 8.8 TH/MM3 (1.8-7.7); BASOPHIL # 0.1 TH/MM3 (0-0.2); BASOPHIL % 0.9 % (0.0-2.0); EOSINOPHIL # 0.2 TH/MM3 (0-0.4); EOSINOPHIL % 1.5 % (0.0-4.0); HEMATOCRIT 43.4 % (39.0-51.0); HEMOGLOBIN 14.8 GM/DL (13.0-17.0); LYMPHOCYTE # 3.3 TH/MM3 (1.0-4.8); MEAN CORPUSCULAR HEMOGLOBIN 29.9 PG (27.0-34.0); MEAN PLATELET VOLUME 7.8 FL (7.0-11.0); MONO % 6.3 % (0.0-8.0); MONOCYTE # 0.8 TH/MM3 (0-0.9); NEUT % 66.3 % (16.0-70.0); PLATELET COUNT 414 TH/MM3 (150-450); RED BLOOD COUNT 4.93 MIL/MM3 (4.50-5.90); RED CELL DISTRIBUTION WIDTH 13.8 % (11.6-17.2); WHITE BLOOD COUNT 13.2 TH/MM3 (4.0-11.0)
[2017-02-13 19:38] LABS: CHLORIDE 103 MEQ/L (98-107); SODIUM (NA) 142 MEQ/L (136-145)
--- NOTE | 2017-02-13 19:39 | RADRPT ---
EXAM DATE/TIME: 02/13/2017 18:56 [facility] COMPARISON: CHEST SINGLE AP, January 23, 2017, 23:34. INDICATIONS : Chest pain, short of breath, cough MEDICAL HISTORY : Alpha one antitrypsim SURGICAL HISTORY : Lobectomy. loop recorder ENCOUNTER: Initial ACUITY: 2 days PAIN SCORE: 7/10 LOCATION: Bilateral chest FINDINGS: Single AP view of the chest. Mild bilateral interstitial opacity indicating mild pulmonary edema. The lungs are otherwise clear. Cardiomediastinal silhouette within normal limits. No evidence of pleural effusion or pneumothorax. CONCLUSION: 1. Mild bilateral perihilar interstitial opacities suggesting mild pulmonary edema. 2. Hyperlucency of the lung apices again seen indicating emphysema. Alfonso Fuchs MD on February 13, 2017 at 19:36 Board Certified Radiologist. This report was verified electronically.
[2017-02-13 19:41] LABS: CALCIUM 8.6 MG/DL (8.5-10.1); PROTHROMBIN TIME - PATIENT 10.2 SEC (9.8-11.6)
[2017-02-13 19:42] LABS: ALBUMIN 3.4 GM/DL (3.4-5.0); BICARBONATE 32.5 MEQ/L (21.0-32.0); BLOOD UREA NITROGEN 15 MG/DL (7-18); GLUCOSE,RANDOM 91 MG/DL (74-106)
[2017-02-13 19:45] LABS: ALT (GPT) 24 U/L (12-78); AST (GOT) 19 U/L (15-37); CREATININE 0.91 MG/DL (0.60-1.30); GLOMERULAR FILTRATION RATE 89 ML/MIN (>89)
[2017-02-13 19:46] LABS: TOTAL BILIRUBIN ADULT 0.3 MG/DL (0.2-1.0); TOTAL PROTEIN 6.5 GM/DL (6.4-8.2)
[2017-02-13 19:48] LABS: ALKALINE PHOSPHATASE 61 U/L (45-117)
[2017-02-13 19:50] LABS: TROPONIN I LESS THAN 0.02 NG/ML (0.02-0.05)
--- NOTE | 2017-02-13 20:25 | RADRPT ---
EXAM DATE/TIME: 02/13/2017 19:42 [facility] COMPARISON: No previous studies available for comparison. INDICATIONS : Inability to ambulate. MEDICAL HISTORY : Alpha-1 Antitrypsin Deficiency. SURGICAL HISTORY : Lobectomy. Loop recorder. ENCOUNTER: Initial ACUITY: 1 day PAIN SCORE: 0/10 LOCATION: [facility] TECHNIQUE: Multiplanar multisequence MRI of the thoracic spine was performed. FINDINGS: VERTEBRA: Normal vertebral body height. Homogeneous marrow signal. ALIGNMENT: Normal. CORD: Normal position and configuration. T1-T2: Normal. T2-T3: The thecal sac has a normal diameter. No evidence of disc bulge or protrusion. T3-T4: The thecal sac has a normal diameter. No evidence of disc bulge or protrusion. T4-T5: The thecal sac has a normal diameter. No evidence of disc bulge or protrusion. T5-T6: The thecal sac has a normal diameter. No evidence of disc bulge or protrusion. T6-T7: Minimal central disc protrusion. The thecal sac has a normal diameter. T7-T8: Minimal central disc protrusion. The thecal sac has a normal diameter. T8-T9: Minimal central disc protrusion. The thecal sac has a normal diameter. T9-T10: The thecal sac has a normal diameter. No evidence of disc bulge or protrusion. T10-T11: The thecal sac has a normal diameter. No evidence of disc bulge or protrusion. T11-T12: The thecal sac has a normal diameter. No evidence of disc bulge or protrusion. T12-L1: The thecal sac has a normal diameter. No evidence of disc bulge or protrusion. CONCLUSION: Minimal central disc protrusions of the mid thoracic spine. Central canal diameter within normal limi ts at all levels. Neural foraminal diameters within normal limits at all levels. Spinal cord signal w ithin normal limits. Alfonso Fuchs MD on February 13, 2017 at 20:20 Board Certified Radiologist. This report was verified electronically.
--- NOTE | 2017-02-13 21:19 | RADRPT ---
EXAM DATE/TIME: 02/13/2017 19:42 [facility] COMPARISON: No previous studies available for comparison. INDICATIONS : Weakness. MEDICAL HISTORY : Alpha-1 Antitrypsin Deficiency. SURGICAL HISTORY : Lobectomy. Loop recorder. ENCOUNTER: Initial ACUITY: 1 day PAIN SCORE: 0/10 LOCATION: [facility] TECHNIQUE: Multiplanar multisequence MRI of the lumbar spine was performed without contrast. FINDINGS: The most caudal appearing lumbar vertebra is numbered as L5. VERTEBRAE: Homogeneous signal. Normal alignment. CONUS: Normal level and configuration. T12-L1: The thecal sac has a normal diameter. No evidence of disc bulge or protrusion. The neural foramina are patent bilaterally. L1-L2: The thecal sac has a normal diameter. No evidence of disc bulge or protrusion. The neural foramina are patent bilaterally. L2-L3: The thecal sac has a normal diameter. No evidence of disc bulge or protrusion. The neural foramina are patent bilaterally. L3-L4: The thecal sac has a normal diameter. No evidence of disc bulge or protrusion. The neural foramina are patent bilaterally. L4-L5: Large left lateral disc protrusion results in moderate severity left neural renal narrowing and moder ate severity left lateral recess narrowing with likely impingement of at least the left L5 nerve root . L5-S1: The thecal sac has a normal diameter. No evidence of disc bulge or protrusion. The neural foramina are patent bilaterally. CONCLUSION: Large left lateral disc protrusion at L4-5 narrowing the left neural foramen and left lateral recess with impingement of at least the left L5 nerve root. Alfonso Fuchs MD on February 13, 2017 at 21:16 Board Certified Radiologist. This report was verified electronically.
[2017-02-13] MEDS ORDERED: MORPHINE SULFATE 2 MG/ML INJ IV PUSH PRN (22:15)
[2017-02-13] MEDS ORDERED: ASPIRIN 81 MG CHEW TAB PO ONE (22:15)
[2017-02-13] MEDS ORDERED: SODIUM CHLORIDE 0.9% FLUSH 10 ML FLUSH IV FLUSH PRN (22:15)
[2017-02-13] MEDS ORDERED: RESP: ALBUTEROL 2.5 MG/IPRATROPIUM 0.5 MG NEB (PRN) NEB (22:15)
[2017-02-14 04:00] VITALS: BP 116/68; PULSE 75; RESP 18; TEMP 96.7; O2SAT 97
[2017-02-14 05:03] LABS: TROPONIN I LESS THAN 0.02 NG/ML (0.02-0.05)
[2017-02-14 06:57] LABS: AUTOMATED NEUTROPHIL # 11.3 TH/MM3 (1.8-7.7); BASOPHIL # 0.1 TH/MM3 (0-0.2); BASOPHIL % 0.4 % (0.0-2.0); HEMATOCRIT 44.9 % (39.0-51.0); HEMOGLOBIN 14.4 GM/DL (13.0-17.0); LYMPH % 8.8 % (9.0-44.0); LYMPHOCYTE # 1.1 TH/MM3 (1.0-4.8); MEAN CELL VOLUME 89.6 FL (80.0-100.0); MEAN CORPUSCULAR HEMOGLOBIN 28.6 PG (27.0-34.0); MEAN PLATELET VOLUME 7.2 FL (7.0-11.0); MONO % 0.7 % (0.0-8.0); MONOCYTE # 0.1 TH/MM3 (0-0.9); NEUT % 90.1 % (16.0-70.0); PLATELET COUNT 312 TH/MM3 (150-450); RED BLOOD COUNT 5.02 MIL/MM3 (4.50-5.90); RED CELL DISTRIBUTION WIDTH 14.1 % (11.6-17.2); WHITE BLOOD COUNT 12.6 TH/MM3 (4.0-11.0)
[2017-02-14 07:09] LABS: BICARBONATE 27.9 MEQ/L (21.0-32.0)
[2017-02-14 07:12] LABS: CREATININE 0.81 MG/DL (0.60-1.30)
[2017-02-14 07:15] VITALS: O2SAT 92
[2017-02-14 07:17] LABS: TROPONIN I LESS THAN 0.02 NG/ML (0.02-0.05)
--- NOTE | 2017-02-14 07:27 | EKG ---
Date Performed: 02/13/2017 Time Performed: 18:41:38 PTAGE: 47 years EKG: Sinus rhythm NORMAL ECG PREVIOUS TRACING : 01/23/2017 23.39 No significant change from previous tracing noted. DOCTOR: Tarik Fink Interpretating Date/Time 02/14/2017 07:26:43
[2017-02-14] MEDS ORDERED: RESP: ALBUTEROL 2.5 MG/IPRATROPIUM 0.5 MG NEB (PRN) NEB (07:30)
[2017-02-14] MEDS ORDERED: ALPRAZolam 1 MG TAB PO PRN (07:30)
[2017-02-14 08:00] VITALS: BP 119/71; PULSE 79; RESP 18; TEMP 97.7; O2SAT 95
[2017-02-14] MEDS ORDERED: methylPREDNISolone SOD SUCC 125 MG/2 ML VIAL IV PUSH SCH (08:00)
[2017-02-14] MEDS ORDERED: RESP: ALBUTEROL 2.5 MG/IPRATROPIUM 0.5 MG NEB (SCH) INH (08:00)
[2017-02-14 08:02] VITALS: PULSE 61
--- NOTE | 2017-02-14 08:25 | HHI.HP ---
[facility] Albaro Villaseñor MD Admission Diagnosis Chest Pain, COPD exacerbation, Lumbar herniated disc Diagnoses: (1) Chronic respiratory failure with hypoxia Diagnosis: Principal (2) COPD (chronic obstructive pulmonary disease) Diagnosis: Principal (3) Lumbar herniated disc Diagnosis: Principal (4) Chronic pain Diagnosis: Principal Chief Complaint: Low back pain, lower extremity instability, Travel History International Travel<30 Days: No Contact w/Intl Traveler <30 Da: No Traveled to Known Affected Are: No Sepsis Criteria SIRS Criteria (2 or more): WBC > 78517, < 4000 or > 10% bands History of Present Illness 47 year-old rather unfortunate male with known history of chronic hypoxic respiratory failure, chronic obstructive pulmonary disease, alpha 1 antitrypsin deficiency, chronic back pain, anxiety who presented to the hospital because he indicates that he is had lower external weakness for months. ER documentation indicates that he presented to the hospital because of shortness of breath, chest tightness, bilateral lower extremity weakness. Patient indicates that his shortness of breath and chest tightness has always been a chronic issue. He is on oxygen 3.5 L at home on a regular basis. The patient indicates that he has had lower extremity weakness for months and he has notified his primary medical doctor. However, the primary medical doctor has not referred him to a specialist as of yet. Patient did undergo MRI studies in the emergency department with a alanis spine indicating central canal protrusion without any spinal cord compromise. There is also a large left disc protrusion at L4-L5 narrowing the left neural foramen and left lateral recess with impingement on the L5 nerve root. However there is no impingement upon the spinal canal. Patient states that he does have lower external weakness and he states that sometimes when he walks his legs will give out and he will fall down. As before he has notified his primary medical doctor of this. He denies any loss of bowel control. However it indicates that he is had episodes of urinary incontinence intermittently however no acute incontinence at this time. There is no saddle paresthesia. Patient does have chronic lung issues and he is on oxygen at home. He has been on hospice in the past. He indicates that his breathing is at baseline. He always has pleuritic chest pain which is at baseline also. Is recommended by the ER physician the patient be observed in the hospital for further evaluation management. Review of Systems Respiratory: COMPLAINS OF: Cough, Shortness of breath Cardiovascular: COMPLAINS OF: Chest pain Genitourinary: COMPLAINS OF: Urinary incontinence Musculoskeletal: COMPLAINS OF: Back pain Except as stated in HPI: all other systems reviewed are Neg Past Family Social History Past Medical History Chronic respiratory failure, oxygen dependent Chronic obstructive pulmonary disease Alpha I antitrypsin deficiency Hypertension Cardiomyopathy Narcotic dependency Past Surgical History Right lung lobectomy Sinus surgery Tonsillectomy Loop recorder implantation Multiple teeth extractions Reported Medications Reported Meds & Active Scripts Active Prednisone 10 Mg Tab 10 Mg PO DAILY 60 mg daily for 2 days, then 50 mg daily for 2 days, then 40 mg daily for 2 days, then 30 mg daily for 2 days, then 20 mg daily for 2 days, then 10 mg daily Zithromax Z-Tom (Azithromycin) 250 Mg Dspk 250 Mg PO DIRECTED 500 MG (2 tabs) day 1, then 1 tab days 2-5. Xanax (Alprazolam) 1 Mg Tab 1 Mg PO Q6H PRN Oxycodone (Oxycodone HCl) 10 Mg Tab 10 Mg PO Q6H PRN Reported Breo Ellipta Inh (Fluticasone/Vilanterol) 100-25 Mcg/Act Inh 1 Puff INH DAILY Use daily at the same time. Duoneb (Ipratropium-Albuterol Neb) 0.5-2.5 Mg/3 Ml Neb 1 Nebule INH Q4HR NEB Trazodone (Trazodone HCl) 100 Mg Tablet 300 Mg PO HS Omeprazole 40 Mg Cap 40 Mg PO DAILY Allergies: Coded Allergies: codeine (Verified Allergy, Severe, Anaphylaxis, 02/13/17) diatrizoate meglumine (Verified Allergy, Severe, Tongue Swelling, [place] , 02/13/17) fentanyl (Verified Allergy, Severe, Hives; nausea/vomiting, 02/13/17) Per patient report gadobenic acid (Verified Allergy, Severe, Tongue Swelling, [place], 02/13) gadodiamide (Verified Allergy, Severe, Tongue Swelling, [place], 02/13/17 ) gadoteridol (Verified Allergy, Severe, Tongue Swelling, [place], 02/13/17 ) iodixanol (Verified Allergy, Severe, Tongue Swelling, [place], 02/13/17) iohexol (Verified Allergy, Severe, Tongue Swelling, [place], 02/13/17) morphine (Verified Allergy, Severe, itching and redness at IV site., 02/13) Pt states not allergic azithromycin (Verified Allergy, Intermediate, Itching, 02/13/17) REDNESS AND ITCHING IN SAME ARM OF IV INFUSION. PT REPORTS TAKING ORAL ZITHROMAX WITHOUT ANY PROBLEMS. methadone (Verified Allergy, Intermediate, Hives, 02/13/17) Per patient report Family History Reviewed is significant for mother with diabetes, father at age 67 from myocardial infarction Social History Patient quit smoking in 2015, he does continue to use marijuana, denies any alcohol Physical Exam Vital Signs Vital Signs Date Time Temp Pulse Resp B/P (MAP) Pulse Ox O2 Delivery O2 Flow Rate FiO2 02/14/17 07:15 92 21 02/14/17 04:00 96.7 75 18 116/68 (84) 97 02/13/17 23:20 97.0 88 20 142/84 (103) 96 02/13/17 22:52 79 18 138/84 (102) 97 Nasal Cannula 3.50 02/13/17 21:16 89 18 136/82 (100) 96 Nasal Cannula 02/13/17 20:52 98 3.50 02/13/17 19:30 Nasal Cannula 3.50 02/13/17 19:00 97 Nasal Cannula 3.50 02/13/17 18:35 95 Nasal Cannula 3.50 02/13/17 18:34 98.1 94 16 161/97 (118) 95 Nasal Cannula 3.50 02/13/17 18:27 98.1 101 24 134/84 (101) 95 Physical Exam GENERAL: Well-developed, well-nourished, in no acute distress. alert and orientated HEENT: Head is normocephalic without any lesions or masses noted. Facial features are symmetric. Eyes: Pupils equal round reactive to light. Extraocular muscles are intact. Conjunctivae were clear. Oropharyngeal: Pharynx without any erythema edema. Tongue is midline without deviation. Buccal mucosa is moist without any masses or lesions NECK: Supple without any masses. Trachea midline no deviation. No JVD, no bruits are appreciated CARDIAC: Regular rhythm, regular rate. S1/S2 are heard. No murmurs gallops or rubs. LUNGS: Diminished breath sounds noted throughout, forced expiratory wheeze. Rhonchi or rales. No use of accessory muscles on inspiration or expiration. ABDOMEN: Soft, nontender. Nondistended. Bowel sounds heard in all 4 quadrants. No organomegaly or masses. Negative rebound, negative guarding EXTREMITIES: No edema, pulses are equal bilaterally. No cyanosis or clubbing NEUROLOGY: Mood and affect appear appropriate. Cranial nerves II through XII grossly intact. Muscle strength 5/5 in upper and lower extremities bilaterally. Deep tendon reflexes are 2+ in upper and lower extremities bilaterally. Laboratory Laboratory Tests Test 02/13/17 19:15 02/14/17 01:12 02/14/17 06:35 White Blood Count 13.2 12.6 Red Blood Count 4.93 5.02 Hemoglobin 14.8 14.4 Hematocrit 43.4 44.9 Mean Corpuscular Volume 88.0 89.6 Mean Corpuscular Hemoglobin 29.9 28.6 Mean Corpuscular Hemoglobin Concent 34.0 32.0 Red Cell Distribution Width 13.8 14.1 Platelet Count 414 312 Mean Platelet Volume 7.8 7.2 Neutrophils (%) (Auto) 66.3 90.1 Lymphocytes (%) (Auto) 25.0 8.8 Monocytes (%) (Auto) 6.3 0.7 Eosinophils (%) (Auto) 1.5 0.0 Basophils (%) (Auto) 0.9 0.4 Neutrophils # (Auto) 8.8 11.3 Lymphocytes # (Auto) 3.3 1.1 Monocytes # (Auto) 0.8 0.1 Eosinophils # (Auto) 0.2 0.0 Basophils # (Auto) 0.1 0.1 CBC Comment DIFF FINAL DIFF FINAL Differential Comment Erythrocyte Sedimentation Rate 1 Prothrombin Time 10.2 Prothromb Time International Ratio 1.0 Activated Partial Thromboplast Time 28.5 Blood Urea Nitrogen 15 14 Creatinine 0.91 0.81 Random Glucose 91 146 Total Protein 6.5 Albumin 3.4 Calcium Level 8.6 8.0 Magnesium Level 2.0 Alkaline Phosphatase 61 Aspartate Amino Transf (AST/SGOT) 19 Alanine Aminotransferase (ALT/SGPT) 24 Total Bilirubin 0.3 Sodium Level 142 138 Potassium Level 3.5 3.9 Chloride Level 103 101 Carbon Dioxide Level 32.5 27.9 Anion Gap 7 9 Estimat Glomerular Filtration Rate 89 101 Total Creatine Kinase 123 85 72 Creatine Kinase MB 1.7 Troponin I LESS THAN 0.02 LESS THAN 0.02 LESS THAN 0.02 B-Type Natriuretic Peptide LESS THAN 2 Result Diagram: 02/14/17 0635 02/14/17 0635 Imaging Last Impressions Chest X-Ray 02/13/17 1843 Signed Impressions: Service Date/Time: Monday, February 13, 2017 18:56 - CONCLUSION: 1. Mild bilateral perihilar interstitial opacities suggesting mild pulmonary edema. 2. Hyperlucency of the lung apices again seen indicating emphysema. Alfonso Fuchs MD Thoracic Spine MRI 02/13/17 0000 Signed Impressions: Service Date/Time: Monday, February 13, 2017 19:42 - CONCLUSION: Minimal central disc protrusions of the mid thoracic spine. Central canal diameter within normal limits at all levels. Neural foraminal diameters within normal limits at all levels. Spinal cord signal within normal limits. Alfonso Fuchs MD Lumbar Spine MRI 02/13/17 0000 Signed Impressions: Service Date/Time: Monday, February 13, 2017 19:42 - CONCLUSION: Large left lateral disc protrusion at L4-5 narrowing the left neural foramen and left lateral recess with impingement of at least the left L5 nerve root. MD Jason Olson VTE Risk Assessment Caprini VTE Risk Assessment: Mod/High Risk (score >= 2) Caprini Risk Assessment Model Point Value = 1 Point Value = 2 Point Value = 3 Point Value = 5 Age 41-60 Minor surgery BMI > 25 kg/m2 Swollen legs Varicose veins or History of unexplained or recurrent spontaneous Oral contraceptives or hormone replacement Sepsis (< 1 month) Serious lung disease, including pneumonia (< 1 month) Abnormal pulmonary function Acute myocardial infarction Congestive heart failure (< 1 month) History of inflammatory bowel disease Medical patient at bed rest Age 61-74 Arthroscopic surgery Major open surgery (> 45 min) Laparoscopic surgery (> 45 min) Malignancy Confined to bed (> 72 hours) Immobilizing plaster cast Central venous access Age >= 75 History of VTE Family history of VTE Factor V Leiden Prothrombin [id number] Lupus anticoagulant Anticardiolipin antibodies Elevated serum homocysteine Heparin-induced thrombocytopenia Other congenital or acquired thrombophilia Stroke (< 1 month) Elective arthroplasty Hip, pelvis, or leg fracture Acute spinal cord injury (< 1 month) Prophylaxis Regimen Total Risk Factor Score Risk Level Prophylaxis Regimen 0-1 Low Early ambulation 2 Moderate Order ONE of the following: *Sequential Compression Device (SCD) *Heparin 5000 units SQ BID 3-4 Higher Order ONE of the following medications: *Heparin 5000 units SQ TID *Enoxaparin/Lovenox 40 mg SQ daily (WT < 150 kg, CrCl > 30 mL/min) *Enoxaparin/Lovenox 30 mg SQ daily (WT < 150 kg, CrCl > 10-29 mL/min) *Enoxaparin/Lovenox 30 mg SQ BID (WT < 150 kg, CrCl > 30 mL/min) AND/OR *Sequential Compression Device (SCD) 5 or more Highest Order ONE of the following medications: *Heparin 5000 units SQ TID (Preferred with Epidurals) *Enoxaparin/Lovenox 40 mg SQ daily (WT < 150 kg, CrCl > 30 mL/min) *Enoxaparin/Lovenox 30 mg SQ daily (WT < 150 kg, CrCl > 10-29 mL/min) *Enoxaparin/Lovenox 30 mg SQ BID (WT < 150 kg, CrCl > 30 mL/min) AND *Sequential Compression Device (SCD) Assessment and Plan Assessment and Plan Lower extremity weakness with chronic back pain MRI studies were performed which does show disc protrusion at L4-L5 narrowing the left neural foramen and left lateral recess with impingement on at least the L5 nerve root no spinal canal stenosis was documented Patient's home medication has been continued Patient was counseled extensively on outpatient follow-up with his primary medical doctor for referrals to possible pain management, neurologist, neurosurgeon Chronic hypoxic respiratory failure, patient is at baseline Continue O2 supplementation take maintain O2 sats greater 92% Duo nebs every 4 hours and as needed Chronic obstructive pulmonary disease with possible acute bronchitis Solu-Medrol 60 mg IV every 6 hours Levaquin 750 mg daily Thom[facility] Counseled patient extensively on possible bronchitis, patient states that Zithromax works really well for him in requesting prescription upon discharge, also discussed with him increase of prednisone at this time, due to possible acute bronchitis. He states that he is on prednisone 10 mg at home Leukocytosis patient is on chronic steroids DVT prevention Sequential compression devices Discharge disposition Discharge home in stable condition Activity: Ad [place]. Diet: Regular diet Medications per medication reconciliation Follow-up with primary medical doctor in one week, industrial editor in one week Problem Qualifiers (1) COPD (chronic obstructive pulmonary disease): Qualified Codes: J44.9 - Chronic obstructive pulmonary disease, unspecified Wilian Cardona Feb 14, 2017 08:25
[2017-02-14] MEDS ORDERED: ZITHTAB PO (08:43)
[2017-02-14] MEDS ORDERED: PRED10 PO (08:43)
--- NOTE | 2017-02-14 08:44 | HHI.DCPOC ---
Discharge Care Plan Diagnosis: (1) Chronic respiratory failure with hypoxia (2) COPD (chronic obstructive pulmonary disease) (3) Chronic pain Goals to Promote Your Health * To prevent worsening of your condition and complications * To maintain your health at the optimal level Directions to Meet Your Goals Take your medications as prescribed Follow your dietary instruction Follow activity as directed Keep your appointments as scheduled Take your immunizations and boosters as scheduled If your symptoms worsen call your PCP, if no PCP go to Urgent Care Center or Emergency Room Smoking is Dangerous to Your Health. Avoid second hand smoke Call the 24-hour hour crisis hotline for domestic abuse at Wilian Cardona Feb 14, 2017 08:44
--- NOTE | 2017-02-14 08:51 | EKG ---
Date Performed: 02/13/2017 Time Performed: 22:34:03 PTAGE: 47 years EKG: Sinus rhythm NORMAL ECG PREVIOUS TRACING : 02/13/2017 18.41 No significant change from previous tracing noted. DOCTOR: Tarik Fink Interpretating Date/Time 02/14/2017 08:50:31
[2017-02-14] MEDS ORDERED: SODIUM CHLORIDE 0.9% FLUSH 10 ML FLUSH IV FLUSH SCH (09:00)
[2017-02-14] MEDS ORDERED: PANTOPRAZOLE SOD 40 MG DELAYED RELEASE TAB PO SCH (09:00)
[2017-02-14] MEDS ORDERED: FLUTICASONE 100 MCG/VILANTEROL 25 MCG INHALER INH SCH (09:00)
[2017-02-14] MEDS ORDERED: LEVOFLOXACIN 750 MG TAB PO SCH (09:00)
[2017-02-14 10:00] VITALS: RESP 18
[2017-02-14] MEDS ORDERED: traZODone HCL 100 MG TAB PO SCH (21:00)
--- NOTE | 2017-02-15 11:32 | EKG ---
Date Performed: 02/14/2017 Time Performed: 04:25:04 PTAGE: 47 years EKG: Sinus rhythm NORMAL ECG PREVIOUS TRACING : 02/13/2017 22.34 No significant change from previous tracing noted. DOCTOR: Tarik Fink Interpretating Date/Time 02/15/2017 11:32:06
== END 2017-02-14 10:32 | disposition home or self-care (01) ==
LOC: PHED 18:22 → PHEDA 22:11 → PH3A 23:10
PROVIDERS: ADMIT Hospitalist; ATTEND Hospitalist
DX: J96.11 Chronic respiratory failure with hypoxia (principal); J44.1 Chronic obstructive pulmonary disease with (acute) exacerbation; M51.26 Other intervertebral disc displacement, lumbar region; I10 Essential (primary) hypertension; D72.829 Elevated white blood cell count, unspecified; E78.00 Pure hypercholesterolemia, unspecified; I42.9 Cardiomyopathy, unspecified; K21.9 Gastro-esophageal reflux disease without esophagitis; M79.606 Pain in leg, unspecified; G89.29 Other chronic pain; Z72.0 Tobacco use; Z79.52 Long term (current) use of systemic steroids; Z99.81 Dependence on supplemental oxygen
CPT/HCPCS: 71010; 72146; 72148; 80048; 80053; 82550; 82552; 83735; 83880; 84484; 85025; 85610; 85652; 85730; 87205; 87641; 87804; 93005; 94150; 94640; 94664; 96374; 99285; G0378; J2930

== ENCOUNTER 2017-02-18 21:40 | Emergency (ER) | payer MEDICARE, OTHER ==
[~2017-02-18] VITALS: Ht 190.5 cm; Wt 63.0 kg
[~2017-02-18 21:40] MED LIST changes: -BACT800T5 PO; -MEDR4PAK PO; -MUPI2%T TOPICAL; +PRED10 PO; +ZITHTAB PO; -ZOFR4TAB PO
[2017-02-18 21:47] VITALS: BP 148/78; PULSE 89; RESP 20; TEMP 97.9; O2SAT 95
--- NOTE | 2017-02-18 22:56 | PD ---
HPI Chief Complaint: Respiratory Symptoms Time Seen by Provider: 22:45 Travel History International Travel<30 days: No Contact w/Intl Traveler<30days: No Traveled to known affect area: No History of Present Illness HPI The patient is a 47-year-old right-hand dominant male that passed out today. No actual seizure activity was seen any does not have a history of seizures. He states he has no head trauma but his neck hurts. He does not have any tongue pain. He also has left third finger pain. The patient has COPD and is oxygen dependent. The patient denies any numbness, weakness or radiation of pain down his arms from the neck. The patient is a frequent visitor to the emergency department. PFSH Past Medical History Hx Anticoagulant Therapy: No Arthritis: No Asthma: No Autoimmune Disease: No Blood Disorders: No Anxiety: Yes Depression: Yes Heart Rhythm Problems: No Cancer: No Cardiac Catheterization: Yes Cardiomyopathy: Yes Cardiovascular Problems: Yes High Cholesterol: Yes Chemotherapy: No Chest Pain: Yes (CHEST WALL PAIN, DENIES ANGINA) Congestive Heart Failure: No COPD: Yes (CHRONIC) Cerebrovascular Accident: No Diabetes: No Diminished Hearing: No Endocrine: No Gastrointestinal Disorders: Yes GERD: Yes Genitourinary: Yes (HX OF SELF-CATHETERIZATION) Headaches: Yes Hiatal Hernia: No Hypertension: Yes Immune Disorder: No Implanted Vascular Access Dvce: Yes Musculoskeletal: Yes (CHRONIC CHEST/LUNG & LEG PAIN) Neurologic: Yes Psychiatric: Yes Reproductive: No Respiratory: Yes Immunizations Current: Yes Migraines: No Myocardial Infarction: No Pneumonia: Yes Radiation Therapy: No Seizures: No Sickle Cell Disease: No Sleep Apnea: No Thyroid Disease: No Ulcer: No Tetanus Vaccination: < 5 Years Influenza Vaccination: Yes PNEUMOCCOCAL Vaccine (Year): 2009 Past Surgical History Abdominal Surgery: No AICD: No Arteriovenous Shunt: No Body Medical Devices: LOOP RECORDER Cardiac Surgery: Yes (LOOP RECORDER- placed 05/05/14) Ear Surgery: No Endocrine Surgery: No Eye Surgery: No Genitourinary Surgery: No Insulin Pump: No Joint Replacement: No Neurologic Surgery: No Oral Surgery: Yes (TEETH REMOVED) Pacemaker: No Thoracic Surgery: Yes (RIGHT LUNG LOBECTOMY) Tonsillectomy: Yes Other Surgery: Yes (SINUS SURGERY, RIGHT LOWER LOBECTOMY, LOOP RECORDER) Family History Family Hypercholesterolemia: Yes Social History Alcohol Use: Yes (Weekends) Tobacco Use: Yes Substance Use: No Allergies-Medications (Allergen,Severity, Reaction): Coded Allergies: codeine (Verified Allergy, Severe, Anaphylaxis, 02/18/17) diatrizoate meglumine (Verified Allergy, Severe, Tongue Swelling, [place] , 02/18/17) fentanyl (Verified Allergy, Severe, Hives; nausea/vomiting, 02/18/17) Per patient report gadobenic acid (Verified Allergy, Severe, Tongue Swelling, [place], 02/18) gadodiamide (Verified Allergy, Severe, Tongue Swelling, [place], 02/18/17 ) gadoteridol (Verified Allergy, Severe, Tongue Swelling, [place], 02/18/17 ) iodixanol (Verified Allergy, Severe, Tongue Swelling, [place], 02/18/17) iohexol (Verified Allergy, Severe, Tongue Swelling, [place], 02/18/17) morphine (Verified Allergy, Severe, itching and redness at IV site., 02/18) Pt states not allergic azithromycin (Verified Allergy, Intermediate, Itching, 02/18/17) REDNESS AND ITCHING IN SAME ARM OF IV INFUSION. PT REPORTS TAKING ORAL ZITHROMAX WITHOUT ANY PROBLEMS. methadone (Verified Allergy, Intermediate, Hives, 02/18/17) Per patient report Reported Meds & Prescriptions Reported Meds & Active Scripts Active Prednisone 10 Mg Tab 10 Mg PO DAILY 60 mg daily for 2 days, then 50 mg daily for 2 days, then 40 mg daily for 2 days, then 30 mg daily for 2 days, then 20 mg daily for 2 days, then 10 mg daily Zithromax Z-Tom (Azithromycin) 250 Mg Dspk 250 Mg PO DIRECTED 500 MG (2 tabs) day 1, then 1 tab days 2-5. Xanax (Alprazolam) 1 Mg Tab 1 Mg PO Q6H PRN Oxycodone (Oxycodone HCl) 10 Mg Tab 10 Mg PO Q6H PRN Reported Breo Ellipta Inh (Fluticasone/Vilanterol) 100-25 Mcg/Act Inh 1 Puff INH DAILY Use daily at the same time. Duoneb (Ipratropium-Albuterol Neb) 0.5-2.5 Mg/3 Ml Neb 1 Nebule INH Q4HR NEB Trazodone (Trazodone HCl) 100 Mg Tablet 300 Mg PO HS Omeprazole 40 Mg Cap 40 Mg PO DAILY Review of Systems Except as stated in HPI: all other systems reviewed are Neg Physical Exam Narrative GENERAL: Well-nourished, well-developed patient in no respiratory distress. His vital signs are normal. SKIN: Focused skin assessment warm/dry. HEAD: Normocephalic. EYES: No scleral icterus. No injection or drainage. NECK: Supple, trachea midline. No JVD or lymphadenopathy. There is tenderness on the posterior spinous processes of the neck but no deformity is present on the neck. The patient has been moving the neck freely before he came in to the emergency department. CARDIOVASCULAR: Regular rate and rhythm without murmurs, gallops, or rubs. RESPIRATORY: Breath sounds equal bilaterally. No accessory muscle use. GASTROINTESTINAL: Abdomen soft, non-tender, nondistended. MUSCULOSKELETAL: No cyanosis, or edema. There is tenderness of the third finger at the PIP joint along with swelling. The ring was removed from this digit. There is no linear no rotatory deformity present. Good capillary refill and pinprick is present distally on the third finger. BACK: Nontender without obvious deformity. No CVA tenderness. Data Data Last Documented VS Vital Signs Date Time Temp Pulse Resp B/P (MAP) Pulse Ox O2 Delivery O2 Flow Rate FiO2 02/18/17 23:33 68 20 131/77 (95) 99 Nasal Cannula 3.00 02/18/17 21:47 97.9 Orders Orders Spine, Cervical Compl([id number]) (02/18/17 22:52) Finger ([id number]) (02/18/17 22:52) Splint Or Brace Apply/Monitor (02/19/17 00:01) [facility] Medical Decision Making Medical Screen Exam Complete: Yes Emergency Medical Condition: Yes Medical Record Reviewed: Yes Interpretation(s) X-rays of the cervical spine show intact cervical spine with lower cervical degenerative changes. X-rays of the left third finger show minimally displaced 4. fracture of the long finger PIP joint. Differential Diagnosis Fracture finger, contusion finger, fracture C-spine, cervical strain Narrative Course The patient has a volar plate fracture at the PIP joint of the left third finger. He also has a cervical strain. He will get a splint on the left third finger and follow up with hand surgery Diagnosis Primary Impression: Fracture of finger of left hand Additional Instructions: As we discussed, follow-up with hand surgery. Elevate your hand above your heart to keep the swelling down. Do not replace your ring. Disposition: 01 DISCHARGE HOME Condition: Stable Ethan Cardona MD Feb 18, 2017 22:56
[2017-02-18 23:33] VITALS: BP 131/77; PULSE 68; RESP 20; O2SAT 99
--- NOTE | 2017-02-18 23:36 | RADRPT ---
EXAM DATE/TIME: 02/18/2017 23:16 [facility] COMPARISON: No previous studies available for comparison. INDICATIONS : Cervical spine pain. MEDICAL HISTORY : Alpha-1 Antitrypsin Deficiency SURGICAL HISTORY : Lobectomy. Loop recorder ENCOUNTER: Initial ACUITY: 1 day PAIN SCORE: 7/10 LOCATION: Bilateral neck FINDINGS: No fracture or subluxation of the cervical spine. Vertebral bodies have normal height. A mild degener ative appearing kyphosis is seen centered around C5. Mild to moderate disc space narrowing and moderate bilateral uncovertebral and facet osteoarthritis s een at C5/C6 and C6/C7. There is severe bilateral facet osteoarthritis at C7/T1. Prevertebral soft tissues are within normal limits. CONCLUSION: 1. Intact cervical spine. 2. Lower cervical degenerative changes as above. Vahid Elizabeth MD on February 18, 2017 at 23:33 Board Certified Radiologist. This report was verified electronically.
--- NOTE | 2017-02-18 23:39 | RADRPT ---
EXAM DATE/TIME: 02/18/2017 23:16 [facility] COMPARISON: No previous studies available for comparison. INDICATIONS : Left hand, third digit pain. MEDICAL HISTORY : Alpha-1 Antitrypsin Deficiency SURGICAL HISTORY : Lobectomy. Loop recorder ENCOUNTER: Initial ACUITY: 1 day PAIN SCORE: 9/10 LOCATION: Left upper extremity FINDINGS: Small, minimally displaced fracture fragment seen off of the volar plate, base of the long finger mid dle phalanx. No subluxation. Other bones of the left long finger appear intact. There is a nutrient f oramen is seen of the distal shaft region of the proximal phalanx. No radiopaque foreign body. CONCLUSION: Minimally displaced volar plate fracture of the long finger proximal interphalangeal joint. Vahid Elizabeth MD on February 18, 2017 at 23:36 Board Certified Radiologist. This report was verified electronically.
[2017-02-19 00:08] VITALS: BP 133/78
== END 2017-02-19 00:19 | disposition home or self-care (01) ==
LOC: PHED 21:40
DX: S62.613A Displaced fracture of proximal phalanx of left middle finger, initial encounter for closed fracture (principal); S16.1XXA Strain of muscle, fascia and tendon at neck level, initial encounter; X58.XXXA Exposure to other specified factors, initial encounter; R55 Syncope and collapse; E78.00 Pure hypercholesterolemia, unspecified; I10 Essential (primary) hypertension; I42.9 Cardiomyopathy, unspecified; J44.9 Chronic obstructive pulmonary disease, unspecified; Z72.0 Tobacco use
CPT/HCPCS: 29130; 72050; 73140

== ENCOUNTER 2017-03-21 11:50 | Inpatient (IN) | payer MEDICARE, OTHER ==
[~2017-03-21] VITALS: Ht 190.5 cm; Wt 65.3 kg
[2017-03-21] VITALS (8 sets, daily range): BP systolic 118–146; BP diastolic 67–90; PULSE 76–109; RESP 16–20; TEMP 97.6–98.3; O2SAT 90–98
[2017-03-21] MEDS ORDERED: SODIUM CHLORIDE 0.9% FLUSH 10 ML FLUSH IVF PRN (12:30)
[2017-03-21] MEDS ORDERED: methylPREDNISolone SOD SUCC 125 MG/2 ML VIAL IV PUSH ONE (12:30)
[2017-03-21] MEDS ORDERED: OXYC30TA PO (12:40)
[2017-03-21] MEDS ORDERED: CEPH-460 PO (12:40)
[2017-03-21] MEDS ORDERED: DILA8TAB4 PO (12:40)
[2017-03-21] MEDS ORDERED: BENA25CA4 (12:40)
[2017-03-21] MEDS ORDERED: ALPR2TAB3 PO (12:40)
[2017-03-21] MEDS: RESP: ALBUTEROL 2.5 MG/IPRATROPIUM 0.5 MG NEB (SCH) INH ×2 (12:41→14:32)
[2017-03-21 13:08] LABS: AUTOMATED NEUTROPHIL # 9.1 TH/MM3 (1.8-7.7); BASOPHIL # 0.1 TH/MM3 (0-0.2); BASOPHIL % 0.7 % (0.0-2.0); EOSINOPHIL # 0.1 TH/MM3 (0-0.4); EOSINOPHIL % 0.7 % (0.0-4.0); HEMATOCRIT 48.2 % (39.0-51.0); HEMOGLOBIN 15.8 GM/DL (13.0-17.0); LYMPH % 16.4 % (9.0-44.0); LYMPHOCYTE # 1.9 TH/MM3 (1.0-4.8); MEAN CELL VOLUME 90.1 FL (80.0-100.0); MEAN CORPUSCULAR HEMOGLOBIN 29.5 PG (27.0-34.0); MEAN CORPUSCULAR HGB CONC 32.7 % (32.0-36.0); MEAN PLATELET VOLUME 7.6 FL (7.0-11.0); MONO % 4.8 % (0.0-8.0); MONOCYTE # 0.6 TH/MM3 (0-0.9); NEUT % 77.4 % (16.0-70.0); PLATELET COUNT 280 TH/MM3 (150-450); RED BLOOD COUNT 5.35 MIL/MM3 (4.50-5.90); RED CELL DISTRIBUTION WIDTH 14.1 % (11.6-17.2); WHITE BLOOD COUNT 11.8 TH/MM3 (4.0-11.0)
[2017-03-21 13:13] LABS: CALCIUM 8.6 MG/DL (8.5-10.1)
[2017-03-21 13:14] LABS: BICARBONATE 29.1 MEQ/L (21.0-32.0)
[2017-03-21 13:17] LABS: CREATININE 0.81 MG/DL (0.60-1.30)
--- NOTE | 2017-03-21 13:27 | PD ---
HPI . Cough and shortness of breath Chief Complaint: Chest Pain Time Seen by Provider: 12:17 Travel History International Travel<30 days: No Contact w/Intl Traveler<30days: No Traveled to known affect area: No History of Present Illness HPI Patient presents with chief complaint of cough and shortness of breath. He is also complaining with a rash on his face. He feels that his cough and shortness of breath is related to the rash on his face. He said the rash is itching and burning and that he now feels like he is itching and burning in his throat and in his chest. The rash has been an ongoing symptom. He has been seen both by his primary care physician and by a dairy truck driver. He states that he has been treated for bacterial infection, fungal infection and allergic reaction all without relief of his rash. He has found no exacerbating or relieving symptoms. Symptoms are growing progressively worse. Pertinent history is that he has alpha 1 antitrypsin deficiency causing a COPD picture. He is oxygen dependent at 4 L. He also has a history of tobacco abuse and hypertension. PFSH Past Medical History Hx Anticoagulant Therapy: No Arthritis: No Asthma: No Autoimmune Disease: No Blood Disorders: No Anxiety: Yes Depression: Yes Heart Rhythm Problems: No Cancer: No Cardiac Catheterization: Yes Cardiomyopathy: Yes Cardiovascular Problems: Yes High Cholesterol: Yes Chemotherapy: No Chest Pain: Yes (CHEST WALL PAIN, DENIES ANGINA) Congestive Heart Failure: No COPD: Yes (CHRONIC) Cerebrovascular Accident: No Diabetes: No Diminished Hearing: No Endocrine: No Gastrointestinal Disorders: Yes GERD: Yes Genitourinary: Yes (HX OF SELF-CATHETERIZATION) Headaches: Yes Hiatal Hernia: No Hypertension: Yes Immune Disorder: No Implanted Vascular Access Dvce: Yes Musculoskeletal: Yes (CHRONIC CHEST/LUNG & LEG PAIN) Neurologic: Yes Psychiatric: Yes Reproductive: No Respiratory: Yes Immunizations Current: Yes Migraines: No Myocardial Infarction: No Pneumonia: Yes Radiation Therapy: No Seizures: No Sickle Cell Disease: No Sleep Apnea: No Thyroid Disease: No Ulcer: No PNEUMOCCOCAL Vaccine (Year): 2009 ?: Not Past Surgical History Abdominal Surgery: No AICD: No Arteriovenous Shunt: No Body Medical Devices: LOOP RECORDER Cardiac Surgery: Yes (LOOP RECORDER- placed 05/05/14) Ear Surgery: No Endocrine Surgery: No Eye Surgery: No Genitourinary Surgery: No Insulin Pump: No Joint Replacement: No Neurologic Surgery: No Oral Surgery: Yes (TEETH REMOVED) Pacemaker: No Thoracic Surgery: Yes (RIGHT LUNG LOBECTOMY) Tonsillectomy: Yes Other Surgery: Yes (SINUS SURGERY, RIGHT LOWER LOBECTOMY, LOOP RECORDER) Family History Family Hypercholesterolemia: Yes Social History Alcohol Use: Yes (Weekends) Tobacco Use: Yes (02/22) Substance Use: No Allergies-Medications (Allergen,Severity, Reaction): Coded Allergies: Iodinated Contrast- Oral and IV Dye (Verified Allergy, Severe, Hives, 03/21) codeine (Verified Allergy, Severe, Anaphylaxis, 03/21/17) diatrizoate meglumine (Verified Allergy, Severe, Tongue Swelling, [place] , 03/21/17) fentanyl (Verified Allergy, Severe, Hives; nausea/vomiting, 03/21/17) Per patient report gadobenic acid (Verified Allergy, Severe, Tongue Swelling, [place], ) gadodiamide (Verified Allergy, Severe, Tongue Swelling, [place], 03/21/17) gadoteridol (Verified Allergy, Severe, Tongue Swelling, [place], 03/21/17) iodixanol (Verified Allergy, Severe, Tongue Swelling, [place], 03/21/17) iohexol (Verified Allergy, Severe, Tongue Swelling, [place], 03/21/17) latex (Verified Allergy, Severe, Hives, 03/21/17) morphine (Verified Allergy, Severe, itching and redness at IV site., ) Pt states not allergic azithromycin (Verified Allergy, Intermediate, Itching, 03/21/17) REDNESS AND ITCHING IN SAME ARM OF IV INFUSION. PT REPORTS TAKING ORAL ZITHROMAX WITHOUT ANY PROBLEMS. methadone (Verified Allergy, Intermediate, Hives, 03/21/17) Per patient report Reported Meds & Prescriptions Reported Meds & Active Scripts Active Prednisone 10 Mg Tab 10 Mg PO DAILY 60 mg daily for 2 days, then 50 mg daily for 2 days, then 40 mg daily for 2 days, then 30 mg daily for 2 days, then 20 mg daily for 2 days, then 10 mg daily Reported Dilaudid (Hydromorphone HCl) 8 Mg Tab 8 Mg PO Q6H PRN Benadryl Allergy (Diphenhydramine HCl) 25 Mg Cap Keflex (Cephalexin) 500 Mg Cap 500 Mg PO Q12H Oxycodone (Oxycodone HCl) 30 Mg Tab 30 Mg PO Q6H PRN Alprazolam 2 Mg Tab 2 Mg PO Q6H PRN Breo Ellipta Inh (Fluticasone/Vilanterol) 100-25 Mcg/Act Inh 1 Puff INH DAILY Use daily at the same time. Duoneb (Ipratropium-Albuterol Neb) 0.5-2.5 Mg/3 Ml Neb 1 Nebule INH Q4HR NEB Trazodone (Trazodone HCl) 100 Mg Tablet 300 Mg PO HS Omeprazole 40 Mg Cap 40 Mg PO DAILY Review of Systems Except as stated in HPI: all other systems reviewed are Neg General / Constitutional: No: Fever, Chills HENT: Positive: Sore Throat Respiratory: Positive: Cough, Shortness of Breath Gastrointestinal: No: Nausea, Vomiting Skin: Positive Rash, Positive Itching Physical Exam Narrative GENERAL: Awake and alert. SKIN: warm/dry. He has a flat, patchy, erythematous rash mainly on the face and scalp. HEAD: Normocephalic. Atraumatic. EYES: Pupils equal and round. No scleral icterus. No injection or drainage. ENT: No nasal bleeding or discharge. Mucous membranes pink and moist. NECK: Trachea midline. Full range of motion without pain.. CARDIOVASCULAR: Regular rate and rhythm. RESPIRATORY: Positive retractions. Breath sounds are tight. Diffuse wheezing. GASTROINTESTINAL: Abdomen soft. Nontender. Bowel sounds present. Nondistended. MUSCULOSKELETAL: No obvious deformities. NEUROLOGICAL: Awake and alert. No obvious cranial nerve deficits. Motor grossly within normal limits. Normal speech. PSYCHIATRIC: Appropriate mood and affect; insight and judgment normal. Data Data Last Documented VS Vital Signs Date Time Temp Pulse Resp B/P (MAP) Pulse Ox O2 Delivery O2 Flow Rate FiO2 03/21/17 13:36 80 16 127/81 (96) 90 Nasal Cannula 4.00 03/21/17 12:07 97.6 Orders Orders Complete Blood Count With Diff (03/21/17 12:23) Basic Metabolic Panel (Bmp) (03/21/17 12:23) Blood Culture (03/21/17 12:23) Iv Access Insert/Monitor (03/21/17 12:23) Electrocardiogram (03/21/17 12:23) Ecg Monitoring (03/21/17 12:23) Oximetry (03/21/17 12:23) Oxygen Administration (03/21/17 12:23) Chest, Single Ap (03/21/17 12:23) Sodium Chloride 0.9% Flush (Ns Flush) (03/21/17 12:30) Methylprednisolone So Succ Inj (Solumedr (03/21/17 12:30) Albuterol-Ipratropium Neb (Duoneb Neb) (03/21/17 12:30) Lactic Acid (03/21/17 12:48) Albuterol-Ipratropium Neb (Duoneb Neb) (03/21/17 14:15) Admit To Inpatient (03/21/17 ) Vital Signs (Adult) BENJA.Q4H (03/21/17 14:41) Activity Oob With Assistance (03/21/17 14:41) Inpatient Certification (03/21/17 ) Admit Order (Ed Use Only) (03/21/17 ) Vital Signs (Adult) Q4H (03/21/17 14:42) Diet Heart Healthy (03/21/17 Dinner) Activity Oob With Assistance (03/21/17 14:42) Notify Dr: Other (03/21/17 14:42) Labs Laboratory Tests Test 03/21/17 12:53 White Blood Count 11.8 TH/MM3 Red Blood Count 5.35 MIL/MM3 Hemoglobin 15.8 GM/DL Hematocrit 48.2 % Mean Corpuscular Volume 90.1 FL Mean Corpuscular Hemoglobin 29.5 PG Mean Corpuscular Hemoglobin Concent 32.7 % Red Cell Distribution Width 14.1 % Platelet Count 280 TH/MM3 Mean Platelet Volume 7.6 FL Neutrophils (%) (Auto) 77.4 % Lymphocytes (%) (Auto) 16.4 % Monocytes (%) (Auto) 4.8 % Eosinophils (%) (Auto) 0.7 % Basophils (%) (Auto) 0.7 % Neutrophils # (Auto) 9.1 TH/MM3 Lymphocytes # (Auto) 1.9 TH/MM3 Monocytes # (Auto) 0.6 TH/MM3 Eosinophils # (Auto) 0.1 TH/MM3 Basophils # (Auto) 0.1 TH/MM3 CBC Comment DIFF FINAL Differential Comment Blood Urea Nitrogen 16 MG/DL Creatinine 0.81 MG/DL Random Glucose 95 MG/DL Calcium Level 8.6 MG/DL Sodium Level 137 MEQ/L Potassium Level 3.7 MEQ/L Chloride Level 103 MEQ/L Carbon Dioxide Level 29.1 MEQ/L Anion Gap 5 MEQ/L Estimat Glomerular Filtration Rate 101 ML/MIN Lactic Acid Level 1.4 mmol/L MDM Medical Decision Making Medical Screen Exam Complete: Yes Emergency Medical Condition: Yes Medical Record Reviewed: Yes (please see HPI for review of records) Differential Diagnosis Differential diagnosis of dyspnea includes but is not limited to congestive heart failure, pneumonia, wheezing, pneumothorax, pulmonary embolism Narrative Course This patient has alpha 1 antitrypsin deficiency. He presents complaining with cough and shortness of breath. He has been placed on oxygen. He has been treated with IV steroids and stacked nebs. CBC & BMP Diagram 03/21/17 12:53 Calcium Level 8.6 LA 1.4 CXR: 1. Underlying emphysema, bullous change and scarring again noted. 2. Mild hazy opacity remains in the perihilar regions and lung bases which may represent scarring. His numbers looked good but he is still retracting and very tight. I have ordered another set of stacked nebs. I have called for admission. Physician Communication Physician Communication Dr. Mike Diagnosis Primary Impression: COPD exacerbation Additional Impression: Facial rash Admitting Information Admitting Physician Requests: Admit Condition: Stable Sanjuana Iraheta MD Mar 21, 2017 13:27
--- NOTE | 2017-03-21 13:31 | RADRPT ---
EXAM DATE/TIME: 03/21/2017 13:19 [facility] COMPARISON: CHEST PA & LAT, January 10, 2017, 17:36. CHEST SINGLE AP, January 23, 2017, 23:34. CHEST SINGLE A P, February 13, 2017, 18:56. INDICATIONS : Short of breath MEDICAL HISTORY : Chronic obstructive pulmonary disease. Alpha 1 anti tripson disease SURGICAL HISTORY : None. Loop recorder ENCOUNTER: Initial ACUITY: 1 week PAIN SCORE: 0/10 LOCATION: Bilateral chest FINDINGS: A single PA erect view of the chest was obtained and again demonstrates mild hyperinflation and under lying emphysema in the upper lobes with less change in the right upper lobe. There are postsurgical c hanges and scarring as well. Mild hazy opacity remains in the perihilar regions and lung bases withou t significant change. The heart size remains within normal limits. There is no effusion. CONCLUSION: 1. Underlying emphysema, bullous change and scarring again noted. 2. Mild hazy opacity remains in the perihilar regions and lung bases which may represent scarring. Guero Moses MD on March 21, 2017 at 13:27 Board Certified Radiologist. This report was verified electronically.
[2017-03-21] MEDS: RESP: ALBUTEROL 2.5 MG/IPRATROPIUM 0.5 MG NEB (SCH) NEB ×2 (15:00→19:34)
--- NOTE | 2017-03-21 15:20 | HHI.HP ---
[facility] Albaro Villaseñor MD Admission Diagnosis exacerbation of COPD Diagnoses: (1) COPD exacerbation (2) Jmmvs-0-bxqojzitruc deficiency Chief Complaint: Shortness of breath Travel History International Travel<30 Days: No Contact w/Intl Traveler <30 Da: No Traveled to Known Affected Are: No History of Present Illness 47-year-old male with known history of Alpha I antitrypsin deficiency , chronic oxygen dependent presented to the ED for evaluation of 1 week history of worsening shortness of breath and severe chest pain mostly with inspiration. Patient reports severe intense pain with deep inspiration, however denies any cough. Patient was seen recently by his merchandise marker and was prescribed a steroid taper however denies any significant improvement. He also endorses a facial rash for which he was seen by dermatology and prescribed antifungal without any improvement. He Currently denies any febrile episode, GI bleed. In the ED, patient has been on 4 L nasal cannula Review of Systems Except as stated in HPI: all other systems reviewed are Neg Past Family Social History Past Medical History Chronic respiratory failure, oxygen dependent Chronic obstructive pulmonary disease Alpha I antitrypsin deficiency Hypertension Cardiomyopathy Narcotic dependency Past Surgical History Right lung lobectomy Sinus surgery Tonsillectomy Loop recorder implantation Multiple teeth extractions Reported Medications Dilaudid (Hydromorphone HCl) 8 Mg Tab 8 Mg PO Q6H PRN Benadryl Allergy (Diphenhydramine HCl) 25 Mg Cap Keflex (Cephalexin) 500 Mg Cap 500 Mg PO Q12H Oxycodone (Oxycodone HCl) 30 Mg Tab 30 Mg PO Q6H PRN Alprazolam 2 Mg Tab 2 Mg PO Q6H PRN Breo Ellipta Inh (Fluticasone/Vilanterol) 100-25 Mcg/Act Inh 1 Puff INH DAILY Use daily at the same time. Duoneb (Ipratropium-Albuterol Neb) 0.5-2.5 Mg/3 Ml Neb 1 Nebule INH Q4HR NEB Trazodone (Trazodone HCl) 100 Mg Tablet 300 Mg PO HS Omeprazole 40 Mg Cap 40 Mg PO DAILY Allergies: Coded Allergies: Iodinated Contrast- Oral and IV Dye (Verified Allergy, Severe, Hives, 03/21) codeine (Verified Allergy, Severe, Anaphylaxis, 03/21/17) diatrizoate meglumine (Verified Allergy, Severe, Tongue Swelling, [place] , 03/21/17) fentanyl (Verified Allergy, Severe, Hives; nausea/vomiting, 03/21/17) Per patient report gadobenic acid (Verified Allergy, Severe, Tongue Swelling, [place], ) gadodiamide (Verified Allergy, Severe, Tongue Swelling, [place], 03/21/17) gadoteridol (Verified Allergy, Severe, Tongue Swelling, [place], 03/21/17) iodixanol (Verified Allergy, Severe, Tongue Swelling, [place], 03/21/17) iohexol (Verified Allergy, Severe, Tongue Swelling, [place], 03/21/17) latex (Verified Allergy, Severe, Hives, 03/21/17) morphine (Verified Allergy, Severe, itching and redness at IV site., ) Pt states not allergic azithromycin (Verified Allergy, Intermediate, Itching, 03/21/17) REDNESS AND ITCHING IN SAME ARM OF IV INFUSION. PT REPORTS TAKING ORAL ZITHROMAX WITHOUT ANY PROBLEMS. methadone (Verified Allergy, Intermediate, Hives, 03/21/17) Per patient report Family History mother with diabetes, father at age 67 from myocardial infarction Social History Patient quit smoking in 2016, he does continue to use marijuana, denies any alcohol Physical Exam Vital Signs Vital Signs Date Time Temp Pulse Resp B/P (MAP) Pulse Ox O2 Delivery O2 Flow Rate FiO2 03/21/17 14:55 98 Nasal Cannula 3.00 03/21/17 13:36 80 16 127/81 (96) 90 Nasal Cannula 4.00 03/21/17 12:41 92 Nasal Cannula 4.00 03/21/17 12:41 66 18 92 Nasal Cannula 4.00 03/21/17 12:41 92 Nasal Cannula 4.00 03/21/17 12:07 97.6 76 18 146/81 (102) 95 Physical Exam GENERAL: This is a well-nourished, well-developed patient, in no apparent distress. SKIN: + rashes to his face, head. No ecchymoses or lesions. Cool and dry. HEAD: Atraumatic. Normocephalic. No temporal or scalp tenderness. EYES: Pupils equal round and reactive. Extraocular motions intact. No scleral icterus. No injection or drainage. ENT: Nose without bleeding, purulent drainage or septal hematoma. Throat without erythema, tonsillar hypertrophy or exudate. Uvula midline. Airway patent. NECK: Trachea midline. No JVD or lymphadenopathy. Supple, nontender, no meningeal signs. CARDIOVASCULAR: Regular rate and rhythm without murmurs, gallops, or rubs. RESPIRATORY: Breath sounds decrease bilaterally. No wheezes, rales, or rhonchi. GASTROINTESTINAL: Abdomen soft, non-tender, nondistended. No hepato-splenomegaly , or palpable masses. No guarding. MUSCULOSKELETAL: Extremities without clubbing, cyanosis, or edema. No joint tenderness, effusion, or edema noted. No calf tenderness. Negative Homans sign bilaterally. NEUROLOGICAL: Awake and alert. Cranial nerves II through XII intact. Motor and sensory grossly within normal limits. Five out of 5 muscle strength in all muscle groups. Normal speech. Laboratory Laboratory Tests Test 03/21/17 12:53 White Blood Count 11.8 Red Blood Count 5.35 Hemoglobin 15.8 Hematocrit 48.2 Mean Corpuscular Volume 90.1 Mean Corpuscular Hemoglobin 29.5 Mean Corpuscular Hemoglobin Concent 32.7 Red Cell Distribution Width 14.1 Platelet Count 280 Mean Platelet Volume 7.6 Neutrophils (%) (Auto) 77.4 Lymphocytes (%) (Auto) 16.4 Monocytes (%) (Auto) 4.8 Eosinophils (%) (Auto) 0.7 Basophils (%) (Auto) 0.7 Neutrophils # (Auto) 9.1 Lymphocytes # (Auto) 1.9 Monocytes # (Auto) 0.6 Eosinophils # (Auto) 0.1 Basophils # (Auto) 0.1 CBC Comment DIFF FINAL Differential Comment Blood Urea Nitrogen 16 Creatinine 0.81 Random Glucose 95 Calcium Level 8.6 Sodium Level 137 Potassium Level 3.7 Chloride Level 103 Carbon Dioxide Level 29.1 Anion Gap 5 Estimat Glomerular Filtration Rate 101 Lactic Acid Level 1.4 Date/Time Source Procedure Growth Status 03/21/17 12:53 Blood Peripheral Aerobic Blood Culture Pending Received 03/21/17 12:53 Blood Peripheral Anaerobic Blood Culture Pending Received Result Diagram: 03/21/17 1253 03/21/17 1253 Imaging Last Impressions Chest X-Ray 03/21/17 1223 Signed Impressions: Service Date/Time: Tuesday, March 21, 2017 13:19 - CONCLUSION: 1. Underlying emphysema, bullous change and scarring again noted. 2. Mild hazy opacity remains in the perihilar regions and lung bases which may represent scarring. Guero Moses MD Septic Shock Reassessment Septic shock perfusion: reassessment completed Caprini VTE Risk Assessment Caprini VTE Risk Assessment: No/Low Risk (score <= 1) Caprini Risk Assessment Model Point Value = 1 Point Value = 2 Point Value = 3 Point Value = 5 Age 41-60 Minor surgery BMI > 25 kg/m2 Swollen legs Varicose veins or History of unexplained or recurrent spontaneous Oral contraceptives or hormone replacement Sepsis (< 1 month) Serious lung disease, including pneumonia (< 1 month) Abnormal pulmonary function Acute myocardial infarction Congestive heart failure (< 1 month) History of inflammatory bowel disease Medical patient at bed rest Age 61-74 Arthroscopic surgery Major open surgery (> 45 min) Laparoscopic surgery (> 45 min) Malignancy Confined to bed (> 72 hours) Immobilizing plaster cast Central venous access Age >= 75 History of VTE Family history of VTE Factor V Leiden Prothrombin [id number] Lupus anticoagulant Anticardiolipin antibodies Elevated serum homocysteine Heparin-induced thrombocytopenia Other congenital or acquired thrombophilia Stroke (< 1 month) Elective arthroplasty Hip, pelvis, or leg fracture Acute spinal cord injury (< 1 month) Prophylaxis Regimen Total Risk Factor Score Risk Level Prophylaxis Regimen 0-1 Low Early ambulation 2 Moderate Order ONE of the following: *Sequential Compression Device (SCD) *Heparin 5000 units SQ BID 3-4 Higher Order ONE of the following medications: *Heparin 5000 units SQ TID *Enoxaparin/Lovenox 40 mg SQ daily (WT < 150 kg, CrCl > 30 mL/min) *Enoxaparin/Lovenox 30 mg SQ daily (WT < 150 kg, CrCl > 10-29 mL/min) *Enoxaparin/Lovenox 30 mg SQ BID (WT < 150 kg, CrCl > 30 mL/min) AND/OR *Sequential Compression Device (SCD) 5 or more Highest Order ONE of the following medications: *Heparin 5000 units SQ TID (Preferred with Epidurals) *Enoxaparin/Lovenox 40 mg SQ daily (WT < 150 kg, CrCl > 30 mL/min) *Enoxaparin/Lovenox 30 mg SQ daily (WT < 150 kg, CrCl > 10-29 mL/min) *Enoxaparin/Lovenox 30 mg SQ BID (WT < 150 kg, CrCl > 30 mL/min) AND *Sequential Compression Device (SCD) Assessment and Plan Problem List: (1) COPD exacerbation ICD Code: J44.1 - Chronic obstructive pulmonary disease with (acute) exacerbation Status: Acute (2) Dependence on supplemental oxygen ICD Code: Z99.81 - Dependence on supplemental oxygen (3) FH: chronic lung disease requiring oxygen ICD Code: Z82.5 - Family history of asthma and other chronic lower respiratory diseases (4) Argjg-5-qefyqtlmwpg deficiency ICD Code: E88.01 - Adyaz-8-qbespvkddsp deficiency Status: Acute (5) Tobacco abuse ICD Code: Z72.0 - Tobacco use Status: Acute Assessment and Plan 47 year-old man with COPD exacerbation Dependence on supplemental oxygen Chest x-ray noted and review by me with underlying emphysema, previous changes and scarring noted. Mild hazy opacity remains in the perihilar regions and lung bases which may represent scarring Treatment with IV Solu-Medrol, long and short acting beta agonist, antibiotic.start pps hyperglycemia protocol with low dose ISS Maintain oxygen saturation above 92% Smoking cessation counseling strongly encouraged Case was discussed with Dr. Santamaria, who has been consulted, Leukocytosis Secondary to steroid use Patient is asymptomatic, afebrile, no signs of infection Skin rash Patient has an appointment with primer inserting machine adjuster DVT prevention Subcutaneous Lovenox Code Status Full code Discussed Condition With Patient, merchandise marker Dr. Santamaria Physician Certification 2 Midnight Certification Type: Admission for Inpatient Services Order for Inpatient Services The services are ordered in accordance with Medicare regulations or non- Medicare payer requirements, as applicable. In the case of services not specified as inpatient-only, they are appropriately provided as inpatient services in accordance with the 2-midnight benchmark. Estimated LOS (days): 2 days is the estimated time the patient will need to remain in the hospital, assuming treatment plan goals are met and no additional complications. Post-Hospital Plan: Not yet determined Isaac Pak MD Mar 21, 2017 15:20
[2017-03-21] MEDS: LEVOFLOXACIN 750 MG PREMIX INJ 150 ML IV SCH (17:05)
[2017-03-21] MEDS ORDERED: DRON2.5 PO (17:08)
[2017-03-21] MEDS ORDERED: DEXTROSE 50% IN WATER 50 ML VIAL(D50) IV PUSH PRN (19:15)
[2017-03-21] MEDS ORDERED: GLUCAGON 1 MG/ML VIAL OTHER PRN (19:15)
[2017-03-21] MEDS ORDERED: TEMAZEPAM 15 MG CAP PO PRN (20:00)
[2017-03-21] MEDS ORDERED: DOCUSATE SODIUM 50 MG/SENNA 8.6 MG TAB PO PRN (20:00)
[2017-03-21] MEDS ORDERED: ACETAMINOPHEN 325 MG TAB PO PRN (20:00)
[2017-03-21] MEDS ORDERED: CALCIUM CARBONATE 500 MG CHEWABLE TAB CHEW PRN (20:00)
--- NOTE | 2017-03-21 20:28 | MB ---
cc: ION JENNINGS DATE OF CONSULTATION 03/21/[address] Pak REASON FOR CONSULTATION COPD exacerbation. HISTORY OF THE PRESENT ILLNESS Mr. Little is a 47-year-old male with very severe, alpha-1 antitrypsin deficiency. He is not on any Prolastin treatment. He is on home oxygen therapy. He uses 3.5 liters nasal cannula and he was being maintained on steroid 25 mg a day. The patient has been having worsening of his symptoms for the last 4 days or so. He saw his supervisor accounts receivable, Dr. Cotton and he was started on different dose of prednisone and was started on Keflex. The patient kept on getting worse and he decided to come to the emergency room. He had a chest x-ray done which shows severe underlying emphysema. No acute infiltrates were seen. CBC showed WBC count 11.8, hemoglobin 15.8, hematocrit 48.2, MCV 90, platelet count 280. His sodium 137, potassium 3.5, chloride 103, CO2 29, BUN 16, creatinine 0.81. PAST MEDICAL HISTORY His past medical history is significant for: 1. History of severe COPD. 2. History of alpha-1 antitrypsin deficiency. 3. Loop recorder placement. 4. Congestive heart failure. 5. History of chronic pain. 6. Hypertension. 7. Chronic pain medication dependence. MEDICATIONS He is currently takin. Breo Ellipta. 2. Solu-Medrol 125 milligrams q.8h. 3. Albuterol Atrovent nebulizer treatment. ALLERGIES HE IS ALLERGIC TO ZITHROMAX, CODEINE, DIATRIZOATE, FENTANYL, GADOBENIC ACID, GADODIAMIDE, METHADONE, MORPHINE. SOCIAL HISTORY He lives with his mother. Has a long history of smoking cut down to a few cigarettes. No alcohol. FAMILY HISTORY Noncontributory. REVIEW OF SYSTEMS He has developed some rash on his face. He has seen a bee tender. The rash is not getting better. No recent fever. Weight is stable. No hemoptysis. No DVT or pulmonary embolism. PHYSICAL EXAMINATION GENERAL: Reveals a well-developed, well-nourished male, mild short of breath. VITAL SIGNS: Blood pressure 139/84, heart rate 80, respiratory rate 20, temperature 97.6. HEENT: Pupils are equal and reactive to light. Oral mucosa, nasal mucosa normal. NECK: Supple. JVD not raised. CHEST: He has decreased chest excursion. Has no expiratory rhonchi. CARDIOVASCULAR: S1-S2 normal. ABDOMEN: Soft. Nontender. Nondistended. Bowel sounds are present. EXTREMITIES: No edema. SKIN: He has a rash on the face and the body. IMPRESSION 1. COPD with exacerbation. 2. Severe chronic obstructive pulmonary disease. 3. Alpha-1 antitrypsin deficiency. 4. Status post loop recorder placement. PLAN I discussed with the patient Continue antibiotic, IV Solu-Medrol, aerosol treatment. Also start him on Mucinex one tablet twice a day. Check his sputum culture and influenza antigen. Supplemental his oxygen. Further treatment will depend on the course in the hospital. Thank you Dr. Cornell for this consultation. MD ZIYAD Sanchez/BEVERLY /4:29 PM /8:05 PM KIMI
[2017-03-21] MEDS: guaiFENesin E.R. 600 MG TAB PO SCH (21:13)
[2017-03-21] MEDS: methylPREDNISolone SOD SUCC 125 MG/2 ML VIAL IV PUSH SCH (21:13)
[2017-03-21] MEDS: INSULIN ASPART SUPPLEMENTAL SCALE SQ SCH (21:15)
[2017-03-21] MEDS: DRONABINOL 2.5 MG CAP PO SCH (21:46)
[2017-03-21] MEDS ORDERED: ALPRAZolam 1 MG TAB PO ONE (22:00)
[2017-03-21] MEDS: traZODone HCL 100 MG TAB PO SCH (22:35)
[2017-03-22] VITALS (7 sets, daily range): BP systolic 105–120; BP diastolic 64–79; PULSE 81–103; RESP 16–20; TEMP 96.7–98.7; O2SAT 90–98
[2017-03-22] MEDS: RESP: ALBUTEROL 2.5 MG/IPRATROPIUM 0.5 MG NEB (PRN) NEB ×2 (00:23→11:04)
[2017-03-22] MEDS: methylPREDNISolone SOD SUCC 125 MG/2 ML VIAL IV PUSH SCH ×4 (02:32→21:07)
[2017-03-22] MEDS: ONDANSETRON HCL 4 MG/2 ML VIAL IV PUSH PRN ×2 (04:37→13:30)
[2017-03-22] MEDS: RESP: ALBUTEROL 2.5 MG/IPRATROPIUM 0.5 MG NEB (SCH) NEB ×3 (07:31→20:24)
[2017-03-22] MEDS: NICOTINE 21 MG/24 HR PATCH T-DERMAL SCH (09:15)
[2017-03-22] MEDS: ENOXAPARIN SODIUM 40 MG/0.4 ML SYRINGE SQ SCH (09:16)
[2017-03-22] MEDS: guaiFENesin E.R. 600 MG TAB PO SCH ×2 (09:17→21:07)
[2017-03-22] MEDS: DRONABINOL 2.5 MG CAP PO SCH ×2 (09:17→21:08)
[2017-03-22] MEDS: FLUTICASONE 100 MCG/VILANTEROL 25 MCG INHALER INH SCH (09:17)
[2017-03-22] MEDS: INSULIN ASPART SUPPLEMENTAL SCALE SQ SCH ×4 (09:17→21:00)
[2017-03-22] MEDS: REMOVE OLD PATCH T-DERMAL SCH (09:25)
--- NOTE | 2017-03-22 14:54 | HHI.PR ---
Subjective Remarks Pt States he continues to feel very SOB, no nausea or vomiting. States he requires more breathing treatments. +wheezing. states he feels miserable Objective Vitals Vital Signs Date Time Temp Pulse Resp B/P (MAP) Pulse Ox O2 Delivery O2 Flow Rate FiO2 03/22/17 12:00 96.9 93 16 118/72 (87) 94 03/22/17 08:30 96.7 103 16 105/64 (78) 93 03/22/17 07:30 94 Nasal Cannula 3.00 03/22/17 00:00 96.7 81 20 118/79 (92) 95 03/21/17 20:00 97.7 103 20 118/90 (99) 96 03/21/17 19:34 96 Nasal Cannula 3.00 03/21/17 18:53 03/21/17 17:01 98.3 109 16 119/67 (84) 95 Nasal Cannula 3.00 03/21/17 15:39 80 139/82 (101) 92 03/21/17 14:55 98 Nasal Cannula 3.00 I/O 03/21/17 03/21/17 03/21/17 03/22/17 03/22/17 03/22/17 07:00 15:00 23:00 07:00 15:00 23:00 Intake Total 150 ml 580 ml Balance 150 ml 580 ml Intake Oral 580 ml IV Total 150 ml # Voids 3 # Bowel Movements 0 Result Diagram: 03/21/17 1253 03/21/17 1253 Imaging Last Impressions Chest X-Ray 03/21/17 1223 Signed Impressions: Service Date/Time: Tuesday, March 21, 2017 13:19 - CONCLUSION: 1. Underlying emphysema, bullous change and scarring again noted. 2. Mild hazy opacity remains in the perihilar regions and lung bases which may represent scarring. Guero Moses MD Objective Remarks GENERAL: This is a well-nourished, well-developed patient, in no apparent distress. SKIN: + rashes to his face, head. No ecchymoses or lesions. Cool and dry. CARDIOVASCULAR: Regular rate and rhythm without murmurs RESPIRATORY: very decreased Breath sounds bilaterally.+ exp wheezes GASTROINTESTINAL: Abdomen soft, non-tender, nondistended. No guarding. MUSCULOSKELETAL: Extremities without edema. NEUROLOGICAL: Awake and alert. Normal speech. A/P Problem List: (1) COPD exacerbation ICD Code: J44.1 - Chronic obstructive pulmonary disease with (acute) exacerbation Status: Acute (2) Dependence on supplemental oxygen ICD Code: Z99.81 - Dependence on supplemental oxygen (3) FH: chronic lung disease requiring oxygen ICD Code: Z82.5 - Family history of asthma and other chronic lower respiratory diseases (4) Ecijx-9-abocihozufg deficiency ICD Code: E88.01 - Ebrht-2-bbhgycuetag deficiency Status: Acute (5) Tobacco abuse ICD Code: Z72.0 - Tobacco use Status: Acute Assessment and Plan 47 year-old man with COPD exacerbation Dependence on supplemental oxygen Chest x-ray noted with underlying emphysema, previous changes and scarring noted. Mild hazy opacity remains in the perihilar regions and lung bases which may represent scarring continue Treatment with IV Solu-Medrol but will decrease to 60mg IV q6hrs, continue long and short acting beta agonist, antibiotics, on levaquin .start pps hyperglycemia protocol with low dose ISS Maintain oxygen saturation above 92% Smoking cessation counseling strongly encouraged Dr. Santamaria, evaluated the pt and added mucinex and levaquin. Influenza neg. Encourage use of IS q1hr while awake Leukocytosis Secondary to steroid use Patient is asymptomatic, afebrile, no signs of infection Skin rash Patient has an appointment with staff certified nurse midwife DVT prevention Subcutaneous Lovenox Discharge Planning continue duoneb treatments, abx and IV solumedrol. Rylee Truong MD Mar 22, 2017 14:54
[2017-03-22] MEDS: EUCERIN CREAM 120 GM JAR TOPICAL PRN (16:31)
[2017-03-22] MEDS: HYDROCORTISONE 0.5% CREAM 30 GM TOPICAL SCH ×2 (16:32→21:09)
[2017-03-22] MEDS: LEVOFLOXACIN 750 MG PREMIX INJ 150 ML IV SCH (16:37)
[2017-03-22] MEDS ORDERED: PADIMATE (CHAPSTICK) 4.5 GM TUBE TOPICAL PRN (17:00)
--- NOTE | 2017-03-22 19:27 | HHI.PR ---
Subjective Remarks 47 YOWM with Severe COPD,Cough, sob On NC Has congestion Difficult to expactorate Has skin rash, saw Derm Objective Vital Signs Vital Signs Date Time Temp Pulse Resp B/P (MAP) Pulse Ox O2 Delivery O2 Flow Rate FiO2 03/22/17 16:00 97.6 85 16 114/72 (86) 97 03/22/17 12:00 96.9 93 16 118/72 (87) 94 03/22/17 08:30 96.7 103 16 105/64 (78) 93 03/22/17 07:30 94 Nasal Cannula 3.00 03/22/17 00:00 96.7 81 20 118/79 (92) 95 03/21/17 20:00 97.7 103 20 118/90 (99) 96 03/21/17 19:34 96 Nasal Cannula 3.00 I/O 03/21/17 03/21/17 03/21/17 03/22/17 03/22/17 03/22/17 07:00 15:00 23:00 07:00 15:00 23:00 Intake Total 150 ml 580 ml 870 ml Output Total 375 ml Balance 150 ml 580 ml 495 ml Intake Oral 580 ml 720 ml IV Total 150 ml 150 ml Output Urine Total 375 ml # Voids 3 3 # Bowel Movements 0 Result Diagram: 03/21/17 1253 03/21/17 1253 Objective Remarks GENERAL: MBMN,WM mild sob SKIN: Warm and dry. HEAD: Normocephalic. EYES: No scleral icterus. No injection or drainage. NECK: Supple, trachea midline. No JVD or lymphadenopathy. CARDIOVASCULAR: Regular rate and rhythm without murmurs, gallops, or rubs. RESPIRATORY: Breath sounds equal bilaterally. No accessory muscle use. decreased chest excursion GASTROINTESTINAL: Abdomen soft, non-tender, nondistended. MUSCULOSKELETAL: No cyanosis, or edema. BACK: Nontender without obvious deformity. No CVA tenderness. A/P Assessment and Plan COPD Exac Severe COPD Bronchitis Nicotine use S/P Loop recorder PLAN Cont Abx Aerosol nebs symb bid IV Solumedrol Acapella Mucinex 1200 mg bid Berto Santamaria MD Mar 22, 2017 19:27
[2017-03-22] MEDS: traZODone HCL 100 MG TAB PO SCH (21:06)
[2017-03-22] MEDS: FAMOTIDINE 20 MG TAB PO SCH (21:08)
[2017-03-23] VITALS (8 sets, daily range): BP systolic 102–136; BP diastolic 55–87; PULSE 59–99; RESP 16–20; TEMP 96–98.1; O2SAT 90–98
--- NOTE | 2017-03-23 01:19 | EKG ---
Date Performed: 03/21/2017 Time Performed: 11:59:54 PTAGE: 47 years EKG: Sinus rhythm NORMAL ECG INTERPRETATION BASED ON A DEFAULT AGE OF 40 YEARS PREVIOUS TRACING : 02/14/2017 04.25 Since the prior tracing, there has been no significan t change DOCTOR: Michael Koch Interpretating Date/Time 03/23/2017 01:17:30
[2017-03-23] MEDS: methylPREDNISolone SOD SUCC 125 MG/2 ML VIAL IV PUSH SCH ×4 (03:37→21:59)
[2017-03-23] MEDS: HYDROCORTISONE 0.5% CREAM 30 GM TOPICAL SCH ×2 (03:37→09:45)
[2017-03-23] MEDS: INSULIN ASPART SUPPLEMENTAL SCALE SQ SCH ×4 (08:00→20:00)
[2017-03-23] MEDS: RESP: ALBUTEROL 2.5 MG/IPRATROPIUM 0.5 MG NEB (SCH) NEB ×3 (08:11→20:42)
[2017-03-23] MEDS: REMOVE OLD PATCH T-DERMAL SCH (08:34)
[2017-03-23] MEDS: NICOTINE 21 MG/24 HR PATCH T-DERMAL SCH (08:34)
[2017-03-23] MEDS: ENOXAPARIN SODIUM 40 MG/0.4 ML SYRINGE SQ SCH (08:35)
[2017-03-23] MEDS: FAMOTIDINE 20 MG TAB PO SCH ×2 (08:36→20:02)
[2017-03-23] MEDS: ONDANSETRON HCL 4 MG/2 ML VIAL IV PUSH PRN ×2 (08:37→16:50)
[2017-03-23] MEDS: FLUTICASONE 100 MCG/VILANTEROL 25 MCG INHALER INH SCH (08:40)
[2017-03-23] MEDS: DRONABINOL 2.5 MG CAP PO SCH ×2 (08:42→20:02)
[2017-03-23] MEDS: EUCERIN CREAM 120 GM JAR TOPICAL PRN (08:42)
[2017-03-23] MEDS: guaiFENesin E.R. 600 MG TAB PO SCH ×2 (09:00→20:02)
[2017-03-23] MEDS: RESP: ALBUTEROL 2.5 MG/IPRATROPIUM 0.5 MG NEB (PRN) NEB (11:45)
[2017-03-23] MEDS: HYDROCORTISONE 1% CREAM 30 GM TOPICAL SCH ×3 (13:54→23:52)
--- NOTE | 2017-03-23 15:07 | HHI.PR ---
Subjective Remarks Pt states that he is not feeling well. SOB seems to be worsening. Has pain w cough. No nausea or vomiting. States he has been to 4 hospices in the past. They keep discharging him. Pt would like to speak w palliative care team. Objective Vitals Vital Signs Date Time Temp Pulse Resp B/P (MAP) Pulse Ox O2 Delivery O2 Flow Rate FiO2 03/23/17 11:50 96.9 84 20 116/65 (82) 92 03/23/17 09:37 20 03/23/17 08:11 98 Nasal Cannula 3.00 03/23/17 07:50 97.5 89 20 102/55 (71) 90 03/23/17 03:35 96.5 84 16 109/69 (82) 93 03/23/17 00:00 96.0 99 20 136/87 (103) 91 03/22/17 20:25 98 Nasal Cannula 3.00 03/22/17 20:00 98.7 87 20 120/66 (84) 90 03/22/17 16:00 97.6 85 16 114/72 (86) 97 I/O 03/22/17 03/22/17 03/22/17 03/23/17 03/23/17 03/23/17 07:00 15:00 23:00 07:00 15:00 23:00 Intake Total 580 ml 870 ml Output Total 375 ml Balance 580 ml 495 ml Intake Oral 580 ml 720 ml IV Total 150 ml Output Urine Total 375 ml # Voids 3 3 2 # Bowel Movements 0 Result Diagram: 03/21/17 1253 03/21/17 1253 Imaging Last Impressions Chest X-Ray 03/21/17 1223 Signed Impressions: Service Date/Time: Tuesday, March 21, 2017 13:19 - CONCLUSION: 1. Underlying emphysema, bullous change and scarring again noted. 2. Mild hazy opacity remains in the perihilar regions and lung bases which may represent scarring. Guero Moses MD Objective Remarks GENERAL: This is a well-nourished, well-developed patient SKIN: + rashes to his face, head. No ecchymoses or lesions. Cool and dry. CARDIOVASCULAR: Regular rate and rhythm without murmurs RESPIRATORY: very decreased Breath sounds bilaterally.+ exp wheezes GASTROINTESTINAL: Abdomen soft, non-tender, nondistended. No guarding. MUSCULOSKELETAL: Extremities without edema. NEUROLOGICAL: Awake and alert. Normal speech. A/P Problem List: (1) COPD exacerbation ICD Code: J44.1 - Chronic obstructive pulmonary disease with (acute) exacerbation Status: Acute (2) Dependence on supplemental oxygen ICD Code: Z99.81 - Dependence on supplemental oxygen (3) FH: chronic lung disease requiring oxygen ICD Code: Z82.5 - Family history of asthma and other chronic lower respiratory diseases (4) Xtqvn-3-fzpgxkhvsds deficiency ICD Code: E88.01 - Eguny-0-fjagqmgmbwz deficiency Status: Acute (5) Tobacco abuse ICD Code: Z72.0 - Tobacco use Status: Acute Assessment and Plan 47 year-old man with COPD exacerbation Dependence on supplemental oxygen Chest x-ray noted with underlying emphysema, previous changes and scarring noted. Mild hazy opacity remains in the perihilar regions and lung bases which may represent scarring continue Treatment with IV Solu-Medrol 60mg IV q6hrs, continue long and short acting beta agonist, antibiotics, on levaquin .start pps hyperglycemia protocol with low dose ISS Maintain oxygen saturation above 92% Smoking cessation counseling strongly encouraged Dr. Santamaria, evaluated the pt and added mucinex and levaquin. Influenza neg. Encourage use of IS q1hr while awake Leukocytosis Secondary to steroid use Patient is asymptomatic, afebrile, no signs of infection Skin rash Patient has an appointment with drywall carrier DVT prevention Subcutaneous Lovenox Discharge Planning Pt is not improving. Feels worst today and having pain w cough. I have consulted palliative care for further assistance w goals of care. Apparently pt has gone to all 4 hospices. States that they keep discharging him due "making it at 6months". Rylee Truong MD Mar 23, 2017 15:07
[2017-03-23] MEDS: LEVOFLOXACIN 750 MG PREMIX INJ 150 ML IV SCH (15:46)
[2017-03-23] MEDS: traZODone HCL 100 MG TAB PO SCH (20:01)
--- NOTE | 2017-03-23 20:43 | HHI.PR ---
Subjective Remarks 47 YOWM with Severe COPD,Cough, sob On NC Has congestion Difficult to expactorate Has skin rash, saw Derm Still has wheezing Objective Vital Signs Vital Signs Date Time Temp Pulse Resp B/P (MAP) Pulse Ox O2 Delivery O2 Flow Rate FiO2 03/23/17 17:54 20 03/23/17 15:50 96.5 59 20 115/69 (84) 91 03/23/17 11:50 96.9 84 20 116/65 (82) 92 03/23/17 08:11 98 Nasal Cannula 3.00 03/23/17 07:50 97.5 89 20 102/55 (71) 90 03/23/17 03:35 96.5 84 16 109/69 (82) 93 03/23/17 00:00 96.0 99 20 136/87 (103) 91 I/O 03/22/17 03/22/17 03/22/17 03/23/17 03/23/17 03/23/17 07:00 15:00 23:00 07:00 15:00 23:00 Intake Total 580 ml 870 ml 1181 ml Output Total 375 ml Balance 580 ml 495 ml 1181 ml Intake Oral 580 ml 720 ml 1181 ml IV Total 150 ml Output Urine Total 375 ml Bladder Scan Volume Amount 325 ml # Voids 3 3 2 4 # Bowel Movements 0 Result Diagram: 03/21/17 1253 03/21/17 1253 Objective Remarks GENERAL: MBMN,WM mild sob SKIN: Warm and dry. HEAD: Normocephalic. EYES: No scleral icterus. No injection or drainage. NECK: Supple, trachea midline. No JVD or lymphadenopathy. CARDIOVASCULAR: Regular rate and rhythm without murmurs, gallops, or rubs. RESPIRATORY: Breath sounds equal bilaterally. No accessory muscle use. decreased chest excursion GASTROINTESTINAL: Abdomen soft, non-tender, nondistended. MUSCULOSKELETAL: No cyanosis, or edema. BACK: Nontender without obvious deformity. No CVA tenderness. A/P Assessment and Plan COPD Exac Severe COPD Bronchitis Nicotine use S/P Loop recorder PLAN Cont Abx Aerosol nebs symb bid IV Solumedrol Acapella Mucinex 1200 mg bid Palliative care consulted Berto Santamaria MD Mar 23, 2017 20:43
[2017-03-24] VITALS: BP 114/89; PULSE 77; RESP 20; TEMP 97.1; O2SAT 96
[2017-03-24 04:00] VITALS: BP 108/62; PULSE 77; RESP 20; TEMP 98.3; O2SAT 95
[2017-03-24] MEDS: methylPREDNISolone SOD SUCC 125 MG/2 ML VIAL IV PUSH SCH ×2 (04:27→08:59)
[2017-03-24] MEDS: HYDROCORTISONE 1% CREAM 30 GM TOPICAL SCH ×2 (06:00→11:42)
[2017-03-24 07:50] VITALS: BP 108/79; PULSE 68; RESP 20; TEMP 96; O2SAT 97
[2017-03-24] MEDS: INSULIN ASPART SUPPLEMENTAL SCALE SQ SCH ×2 (08:00→11:42)
[2017-03-24] MEDS: NICOTINE 21 MG/24 HR PATCH T-DERMAL SCH (08:44)
[2017-03-24] MEDS: ENOXAPARIN SODIUM 40 MG/0.4 ML SYRINGE SQ SCH (08:45)
[2017-03-24 08:46] VITALS: O2SAT 97
[2017-03-24] MEDS: RESP: ALBUTEROL 2.5 MG/IPRATROPIUM 0.5 MG NEB (SCH) NEB ×2 (08:46→14:24)
[2017-03-24] MEDS: guaiFENesin E.R. 600 MG TAB PO SCH (08:47)
[2017-03-24] MEDS: REMOVE OLD PATCH T-DERMAL SCH (08:48)
[2017-03-24] MEDS: FAMOTIDINE 20 MG TAB PO SCH (08:48)
[2017-03-24] MEDS: DRONABINOL 2.5 MG CAP PO SCH (08:48)
[2017-03-24] MEDS: FLUTICASONE 100 MCG/VILANTEROL 25 MCG INHALER INH SCH (08:49)
[2017-03-24] MEDS ORDERED: ONDANSETRON ODT 4 MG TAB PO PRN (11:45)
[2017-03-24 11:50] VITALS: BP 129/81; PULSE 77; RESP 20; TEMP 96.9; O2SAT 92
[2017-03-24] MEDS ORDERED: LEVOFLOXACIN 750 MG TAB PO SCH (13:00)
[2017-03-24] MEDS ORDERED: FAMO20TA2 PO (14:51)
[2017-03-24] MEDS ORDERED: LEVA750T9 PO (14:51)
[2017-03-24] MEDS ORDERED: PRED10 PO (14:51)
--- NOTE | 2017-03-24 14:52 | HHI.DCPOC ---
Discharge Care Plan Diagnosis: (1) Chronic respiratory failure with hypoxia Goals to Promote Your Health * To prevent worsening of your condition and complications * To maintain your health at the optimal level Directions to Meet Your Goals Take your medications as prescribed Follow your dietary instruction Follow activity as directed Keep your appointments as scheduled Take your immunizations and boosters as scheduled If your symptoms worsen call your PCP, if no PCP go to Urgent Care Center or Emergency Room Smoking is Dangerous to Your Health. Avoid second hand smoke Call the 24-hour hour crisis hotline for domestic abuse at Wilian Cardona Mar 24, 2017 14:52
--- NOTE | 2017-03-24 14:58 | HHI.DS ---
Discharge Summary Admission Date Mar 21, 2017 at 14:43 Discharge Date: Mar 24, 2017 Admitting Diagnosis exacerbation of COPD (1) COPD exacerbation ICD Code: J44.1 - Chronic obstructive pulmonary disease with (acute) exacerbation Status: Acute (2) Dependence on supplemental oxygen ICD Code: Z99.81 - Dependence on supplemental oxygen (3) FH: chronic lung disease requiring oxygen ICD Code: Z82.5 - Family history of asthma and other chronic lower respiratory diseases (4) Yejpf-[id number]-airddebwtdb deficiency ICD Code: E88.01 - Kurdd-8-unktyucjyoy deficiency Status: Acute (5) Tobacco abuse ICD Code: Z72.0 - Tobacco use Status: Acute Procedures None Brief History - From Admission 47-year-old male with known history of Alpha I antitrypsin deficiency , chronic oxygen dependent presented to the ED for evaluation of 1 week history of worsening shortness of breath and severe chest pain mostly with inspiration. Patient reports severe intense pain with deep inspiration, however denies any cough. 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 He also endorses a facial rash for which he was seen by dermatology and prescribed antifungal without any improvement. He Currently denies any febrile episode, GI bleed. In the ED, patient has been on 4 L nasal cannula CBC/BMP: 03/21/17 1253 03/21/17 1253 Imaging Last Impressions Chest X-Ray 03/21/17 1223 Signed Impressions: Service Date/Time: Tuesday, March 21, 2017 13:19 - CONCLUSION: 1. Underlying emphysema, bullous change and scarring again noted. 2. Mild hazy opacity remains in the perihilar regions and lung bases which may represent scarring. Guero Moses MD PE at Discharge GENERAL: This is a well-nourished, well-developed patient SKIN: + rashes to his face, head. No ecchymoses or lesions. Cool and dry. CARDIOVASCULAR: Regular rate and rhythm without murmurs RESPIRATORY: very decreased Breath sounds bilaterally.+ exp wheezes GASTROINTESTINAL: Abdomen soft, non-tender, nondistended. No guarding. MUSCULOSKELETAL: Extremities without edema. NEUROLOGICAL: Awake and alert. Normal speech. Hospital Course 47 year-old male with known history of chronic hypoxic respiratory failure, chronic obstructive pulmonary disease, chronic pain who presented to hospital because of worsening shortness of breath and chest pain with inspiration. Patient was recommended admission because of his chronic respiratory failure, hypoxia, chronic obstructive pulmonary disease exacerbation. Patient was started on antibiotics, IV Solu-Medrol, nebulizer treatments, O2 supplementation. Patient did tolerate treatment well. During his entire stay the patient did not require any more oxygen than he would have at home. He is usually on 3.5 L at home, he only required 3 L during his stay in the hospital. Pulmonology was consulted for recommendations. Palliative care consult was placed and I did discuss with the palliative care physician. He indicated that patient has been to almost every hospice organization in the area. Patient had been tested multiple times for anti-trypsin 1 deficiency which laboratory studies do not indicate he having deconditioned. Patient does have rather impressive emphysematous changes. Patient does continue to smoke at least a half a pack a cigarettes a day. Patient does indicate that he is very weak and he cannot get out of bed or ambulate. Physical therapy evaluated the patient indicated that he is completely independent with getting out of bed. He walked 30 and 40 feet with light contact guard. Is not indicating that he needs any home therapy. Patient indicates that the [facility] hosp[facility] has contacted his home and is willing to accept him back under their care. Patient is requesting that he be discharged to hospice. Patient appears to be at his baseline respiratory status at this time. Will plan discharge to hospice once arrangements made. Pt Condition on Discharge: Stable Discharge Disposition: Discharge Home Discharge Time: > 30 minutes Discharge Instructions DIET: Follow Instructions for: As Tolerated, No Restrictions Activities you can perform: Regular-No Restrictions Follow up Referrals: PCP Follow-up - 1 Week New Medications: Famotidine (Famotidine) 20 Mg Tab 20 MG PO BID for GI protection for 30 Days, #60 TAB Levofloxacin (Levaquin) 750 Mg Tablet 750 MG PO DAILY@1100 for COPD for 7 Days, TAB Continued Medications: Alprazolam (Alprazolam) 2 Mg Tab 2 MG PO Q6H PRN for ANXIETY, TAB Diphenhydramine HCl (Benadryl Allergy) 25 Mg Cap Dronabinol (Marinol) 2.5 Mg Cap 2.5 MG PO BID, CAP 0 Refills Fluticasone-Vilanterol Inh (Breo Ellipta Inh) 100-25 Mcg/Act Inh 1 PUFF INH DAILY, #1 INHALER 0 Refills Use daily at the same time. Ipratropium-Albuterol Neb (Duoneb) 0.5-2.5 Mg/3 Ml Neb 1 NEBULE INH Q4HR NEB for SHORTNESS OF BREATH, #120 NEBULE 0 Refills Omeprazole (Omeprazole) 40 Mg Cap 40 MG PO DAILY, #30 CAP 0 Refills Oxycodone (Oxycodone) 30 Mg Tab 30 MG PO Q6H PRN for PAIN, TAB 0 Refills Prednisone (Prednisone) 10 Mg Tab 10 MG PO DAILY for acute on chronic lung disease, #42 TAB 0 Refills (This prescription has been renewed) 60 mg daily for 2 days, then 50 mg daily for 2 days, then 40 mg daily for 2 days, then 30 mg daily for 2 days, then 20 mg daily for 2 days, then 10 mg daily Trazodone (Trazodone) 100 Mg Tablet 300 MG PO HS for Control Depression, #30 TAB 0 Refills Discontinued Medications: Cephalexin (Keflex) 500 Mg Cap 500 MG PO Q12H for Infection, CAP 0 Refills Hydromorphone (Dilaudid) 8 Mg Tab 8 MG PO Q6H PRN for Pain Management, TAB 0 Refills Wilian Cardona Mar 24, 2017 14:58
[2017-03-24] MEDS ORDERED: predniSONE 20 MG TAB PO SCH (21:00)
== END 2017-03-24 16:20 | disposition home or self-care (01) | DRG 191 ==
LOC: PHEFT 11:50 → PHEDA 14:43 → PH3B 18:41
PROVIDERS: ADMIT Hospitalist; ATTEND Hospitalist
PROC: 3E0F7GC Introduction of Other Therapeutic Substance into Respiratory Tract, Via Natural or Artificial Opening (ICD-10-PCS; principal; 2017-03-21)
DX: J44.1 Chronic obstructive pulmonary disease with (acute) exacerbation (principal); I42.9 Cardiomyopathy, unspecified; J96.11 Chronic respiratory failure with hypoxia; E88.01 Alpha-1-antitrypsin deficiency; I11.0 Hypertensive heart disease with heart failure; I50.9 Heart failure, unspecified; Z99.81 Dependence on supplemental oxygen; R21 Rash and other nonspecific skin eruption; F17.200 Nicotine dependence, unspecified, uncomplicated; Z90.2 Acquired absence of lung [part of]; G89.29 Other chronic pain; Z82.5 Family history of asthma and other chronic lower respiratory diseases
CPT/HCPCS: 71045; 80048; 82948; 83605; 85025; 87040; 87804; 93005; 94150; 94640; 94664; 94667; 94668; 96374; J1650; J1815; J1956; J2405; J2930; Q0167